=== PATIENT | female | born 1940 | race Caucasian/White ===

== ENCOUNTER → 2020-05-18 12:08 | Outpatient (CLI) | payer MEDICARE, SELFPAY ==
--- NOTE | ~2020-05-18 | MR_ITS ---
EXAMINATION: MR lumbar spine wo/w con EXAM DATE: 05/18/2020 14:42 INDICATION: Low back pain low back pain TECHNIQUE: Multi-sequential, multiplanar MR images of the lumbar spine were obtained without contrast . Sagittal T1, T2, T2 fat saturation images. Axial T2 weighted images. Comparison is made to prior examination from 12/05/2018. FINDINGS: Study is limited due to significant metallic artifact from lesion hardware L3-S1. There is moderate to severe chronic burst fracture of T12 with 5 mm retropulsion of the inferior endplate post eriorly displacing the conus medullaris, causing mild to moderate central canal stenosis at that leve l. Probable L3-L5 laminectomies. There is 2 mm retrolisthesis L1 on L2. There are moderate L1, mild L 2 compression fractures, with interval progression at the L1 level compared to 2019. Paraspinal soft tissue is unremarkable. Level by level evaluation: T12-L1: There is a moderate diffuse disc bulge, with some retropulsion of the inferior endplate. Facet arthropathy: Moderate. Neural foraminal stenosis: Moderate bilateral. Central canal stenosis: Mild to moderate. L1-L2: There is a mild to moderate diffuse disc bulge. Facet arthropathy: Moderate. Neural foraminal stenosis: Mild to moderate bilateral. Central canal stenosis: Mild to moderate. L2-L3: Poorly visualized. L3-L4: Poorly visualized L4-L5: Poorly visualized L5-S1: Poorly visualized IMPRESSION: 1. Mild interval progression in the L1 compression fracture. 2. Chronic T12 burst fracture. 3. Poorly visualized mid and lower lumbar spine due to metallic artifact Reviewed, dictated and finalized at location A. SHED CLOTH EXAMINER
--- NOTE | ~2020-05-18 | MR_ITS ---
EXAMINATION: MR thoracic spine wo con EXAM DATE: 05/18/2020 14:37 INDICATION: Pain in thoracic spine pain in thoracic spine . TECHNIQUE: Multi-sequential, multiplanar MR images of the thoracic spine were obtained without contra st. Sagittal T1, T2, T2 fat saturation, axial T2 weighted images reviewed. There is no prior study for comparison. FINDINGS: There is osseous fusion of the T2-4 vertebral bodies, and osseous fusion of the cervicothor acic vertebral bodies above this level. There is 3 mm anterolisthesis T1 on T2. There is moderate to severe mid thoracic disc disease and mild to moderate lower thoracic disc disease. T12 has nearly com plete loss of its vertebral body height, chronic burst fracture with vacuum disc phenomenon at T12-L1 . There is moderate thoracic facet arthropathy. Mild multilevel thoracic central canal stenosis. Neur al foramen suboptimally evaluated due to motion on the exam but probably up to moderate neural forami nal stenosis at T8-9, and T9-10, T12-L1. Correlating with a prior CT thoracic spine from 07/16/2018, p robably no significant interval change. Paraspinal soft tissue is unremarkable. IMPRESSION: 1. Moderate to severe mid thoracic disc disease. 2. Chronic T12 burst, L1 compression fractures. Reviewed, dictated and finalized at location A. NING GENERALIST
[2020-05-18 14:19] LABS: Estimated Glomerular Filt Rate > 60
== END ==
PROVIDERS: PCP Family Medicine; Visit Provider Nurse Practitioner Family
DX: M54.5 Low back pain (principal); M54.6 Pain in thoracic spine; M48.56XA Collapsed vertebra, not elsewhere classified, lumbar region, initial encounter for fracture; S22.081A Stable burst fracture of T11-T12 vertebra, initial encounter for closed fracture
CPT/HCPCS: 72146; 72158; A9577

== ENCOUNTER → 2020-06-02 14:44 | Outpatient (CLI) | payer MEDICARE, SELFPAY ==
--- NOTE | ~2020-06-02 | XR_ITS ---
EXAMINATION: XR lumbar spine 2-3V DATE: 06/02/2020 15:02 INDICATION: Low back pain TECHNIQUE: Anteroposterior and lateral views of the lumbar spine, and cone-down lateral view of the l umbosacral junction were obtained. COMPARISON: Lumbar spine MR dated 05/18/2020 FINDINGS: 18 degree levoscoliosis measured between T11 and L3. L3-S1 posterior spinal fusion with bilateral merle tical emeterio and pedicle screw fixation. There appears be associated anterior fusion at each of these le vels with interbody bone graft cages at L3-L4. Chronic T12 burst fracture with 80% anterior vertebral body height loss and changes of prior vertebroplasty. Severe disc height loss at T12-L1, L1-L2 and L 2-L3 with associated degenerative endplate remodeling. This results in mild right-sided vertebral bod y height loss at L2. Diffuse osteopenia. Lucency suggestive of bone graft harvest site at the right p osterior iliac spine. Mild bilateral sacroiliac osteoarthritis. Cholecystectomy clips in right upper quadrant. Visualized lung bases are clear. No pleural effusion. Atherosclerotic aorta. IMPRESSION: 1. Severe lumbar spondylosis with L3-S1 anterior and posterior spinal fusion. 2. Chronic T12 burst fracture with vertebroplasty. Reviewed, dictated and finalized at location A. E MECHANIC
== END ==
PROVIDERS: Visit Provider Nurse Practitioner Family
DX: M47.896 Other spondylosis, lumbar region (principal)
CPT/HCPCS: 72100

== ENCOUNTER 2020-11-25 12:09 | Outpatient (CLI) | payer MEDICARE, SELFPAY ==
--- NOTE | ~2020-11-25 | XR_ITS ---
EXAMINATION: XR chest 2V DATE: 11/25/2020 14:03 INDICATION: Hypertension TECHNIQUE: Frontal and lateral views of the chest are obtained COMPARISON: 09/29/2018 FINDINGS: There are minimal chronic airspace opacities of the right lower lobe, likely atelectasis or scarring. The lungs are free of acute opacities. There is no pleural effusion or pneumothorax. There is severe thoracic spondylosis. There are partially imaged changes of posterior fusion in the cervic al and lumbar spine. Surgical clips in the right upper quadrant are likely from prior cholecystectomy . Cranial migration of the humeral heads with respect to the glenoids is consistent with rotator cuff tears. IMPRESSION: 1. No acute cardiopulmonary abnormality. Reviewed, dictated and finalized at location B.
--- NOTE | 2020-11-25 12:29 | ECHO_ITS ---
Patient Info Name: Maday Carrillo Age: 80 years : 1940 Gender: Female Ht: 62 in Wt: 134 lbs BSA: 1.64 m2 HR: 143 bpm BP: 143 / 91 mmHg Technical Quality: Good Exam Date: 11/25/2020 12:57 PM Exam Location: [facility] Patient Status: Outpatient Admit Date: 11/25/2020 Staff Ordering Physician: Irwin Vega MD Wastewater Design Engineer: Emigdio Morejon, NORIS, RT Attending Provider: Irwin Vega MD Referring Physician: Gary KEITH; Exam Type: CA echo doppler color flow Study Info Indications R01.1 - Cardiac murmur, unspecified Complete two-dimensional, color flow and Doppler transthoracic echocardiogram is performed. Strain analysis performed. Summary 1. Complete two-dimensional, color flow and Doppler transthoracic echocardiogram is performed. 2. Left ventricular chamber dimension is normal. 3. Left ventricular systolic function is normal, estimated at 65-70%. 4. There is moderately increased left ventricular wall thickness. 5. The left ventricular diastolic function is abnormal. 6. E/e' 10 is mildly elevated. 7. Global longitudinal strain is abnormal at -14.7%. 8. Left atrial chamber dimension is moderately enlarged. 9. There is severe aortic valve sclerosis. 10. There is moderate to severe aortic valve stenosis with a peak velocity of 291 cm/s, mean gradient of 20 mmHg, and aortic valve area of 1.0 cm2. 11. There is mild aortic valve regurgitation. 12. The mitral valve has moderately calcified annulus. 13. There is trace tricuspid valve regurgitation. Left Ventricle E/e' 10 is mildly elevated. Global longitudinal strain is abnormal at -14.7%. Left ventricular chamber dimension is normal. Left ventricular systolic function is normal, estimated at 65-70%. There is moderately increased left ventricular wall thickness. The left ventricular diastolic function is abnormal. Right Ventricle Right ventricular systolic function is normal with normal TAPSE 2.3 cm. Right ventricular chamber dimension is normal. Left Atria Left atrial chamber dimension is moderately enlarged. Right Atria Right atrial chamber dimension is normal. Aortic Valve The aortic valve is trileaflet. There is severe aortic valve sclerosis. There is moderate to severe aortic valve stenosis with a peak velocity of 291 cm/s, mean gradient of 20 mmHg, and aortic valve area of 1.0 cm2. There is mild aortic valve regurgitation. Pulmonic Valve There is no pulmonic regurgitation. Mitral Valve The mitral valve has moderately calcified annulus. There is no mitral valve stenosis. There is no mitral valve regurgitation. Tricuspid Valve There is trace tricuspid valve regurgitation. RVSP is not calculated due to an inadequate TR jet. Pericardium/Pleural There is no pericardial effusion. Inferior Vena Cava Normal inferior vena cava with >50% collapse upon inspiration consistent with normal right atrial pressure, 5 mmHg. Aorta The aortic root size at the sinus of Valsalva is normal. Left Ventricular Outflow Tract Name Value Normal LVOT 2D LVOT Diameter 2.0 cm LVOT Doppler LVOT Peak Gradient
== END 2020-11-25 12:10 | disposition home or self-care (01) ==
LOC: ANHCARD 12:12
PROVIDERS: PCP Family Medicine; Visit Provider Family Medicine
DX: R01.1 Cardiac murmur, unspecified (principal); I35.1 Nonrheumatic aortic (valve) insufficiency; M47.814 Spondylosis without myelopathy or radiculopathy, thoracic region
CPT/HCPCS: 71046; 93306

== ENCOUNTER 2021-05-02 13:02 | Observation (INO) | payer MEDICARE, SELFPAY ==
[2021-05-02] VITALS (52 sets, daily range): BP systolic 120–172; BP diastolic 73–112; PULSE 81–131; RESP 12–29; TEMP 36.1–37.1; O2SAT 85–100
--- NOTE | ~2021-05-02 | CT_ITS ---
EXAMINATION: CTA chest PE protocol EXAM DATE: 05/02/2021 15:48 INDICATION: Syncope, atrial fibrillation. Dyspnea on exertion. TECHNIQUE: Spiral CTA of the chest (pulmonary arteries) was performed with 100 cc Omnipaque 350 intr avenous contrast injection. Images were acquired during the pulmonary arterial phase. Coronal maxi mum intensity projection 3D-reconstructions were created by the technologist on dedicated workstation . Axial, coronal and sagittal reformatted images were reviewed. The dose-length product (DLP) for t his examination was 250.86 mGy-cm. The exposure was tailored according to patient size (auto mA exp osure control), and iterative reconstruction (ASIR) was used as additional dose reduction technique. There is no prior study for comparison. FINDINGS: Pulmonary arteries are well opacified and without intraluminal filling defects. No thora cic aortic dissection. The lungs are clear. There are no pleural or pericardial effusions. Trach eobronchial tree is patent. There is no mediastinal, hilar or axillary lymphadenopathy. There is no pneumothorax. Heart normal in size. There is mild coronary arterial calcification, arterial sc lerosis. Upper abdomen is unremarkable. There is advanced thoracic spondylosis without osteoblasti c or osteolytic lesions identified. Fusion of multiple thoracic vertebral bodies and multilevel advan mario disc disease. Treated T12 compression fracture. Pain pump with tip at mid thoracic level. IMPRESSION: 1. No pulmonary emboli or acute findings. Reviewed, dictated and finalized at location A.
--- NOTE | ~2021-05-02 | CT_ITS ---
EXAMINATION: CT brain wo con EXAM DATE: 05/02/2021 14:33 INDICATION: Fall, head trauma. TECHNIQUE: Spiral CT of the head was performed without contrast. Axial, coronal and sagittal images were reviewed. The dose-length product (DLP) for this examination was 605.33 mGy-cm. The exposure w as tailored according to patient size, and iterative reconstruction (ASIR) was used as additional dos e reduction technique. There is no prior study for comparison. FINDINGS: There is no acute intraparenchymal hemorrhage. No evidence of intraparenchymal brain mass lesion. No evidence of acute infarction. Please note that initial head CT has limited sensitivity f or small or acute infarctions. There is mild to moderate periventricular and subcortical hypodensity, nonspecific but probably related to small vessel ischemic disease. There is moderate prominence of the sulci and ventricles related to cerebral atrophy. There is intracranial carotid arterioscleros is. There are no extra-axial collections. There is no mass effect or midline shift. Patient has doherty d right-sided ocular lens surgery. Left lateral scalp laceration, contusion. The visualized sinuses and mastoid air cells are well aerated. IMPRESSION: 1. No acute intracranial findings. 2. Chronic age related findings. 3. Left scalp laceration, contusion. Reviewed, dictated and finalized at location A.
--- NOTE | ~2021-05-02 | XR_ITS ---
EXAMINATION: XR chest 2V EXAM DATE: 05/02/2021 14:42 INDICATION: Syncope. Laceration to back of head. TECHNIQUE: Frontal and lateral projections of the chest obtained and reviewed. Comparison is made to prior examination from 11/25/2020. FINDINGS: There is cardiomegaly and pulmonary vascular congestion. No confluent consolidation, pneum othorax or pleural effusion suspected. Cervical fusion and lumbar fusion hardware. There is moderate thoracolumbar levoscoliosis. There are bony degenerative changes. IMPRESSION: Cardiomegaly and pulmonary vascular congestion. Reviewed, dictated and finalized at location A.
--- NOTE | 2021-05-02 13:51 | ED.HEATRA ---
HPI - Head Injury General Chief complaint: Head Injury Stated complaint: HEAD WOUND S/P FALL Time Seen by Provider: 05/02/21 13:51 Source: patient Mode of arrival: ambulatory Limitations: no limitations History of Present Illness HPI Narrative: Patient is a 80-year-old female with a history of hypertension, hyperlipidemia, type 2 diabetes, aortic stenosis, presenting for evaluation of head laceration, fall versus syncopal event. Patient states that she was putting her hollowing decorations away in a storage closet when she went to ascend steps upstairs and she believes that she may have lost her balance causing her to fall. Patient denies prodromal symptoms prior to the fall such as palpitations, shortness of breath, chest pain, lightheadedness or dizziness. Patient states that she believes she passed out about a month ago where she did have a positive loss of conscious. Patient denies loss of consciousness today patient states that she hit her head on the ground. She denies vision changes, nausea or vomiting. Denies neck or back pain. No numbness or weakness. No nausea or vomiting. Patient is not on any anticoagulation. She denies any current chest pain, hip pain, extremity pain in the room. Patient states that she initially had attributed her more frequent falls to the fact that her right knee needs to be replaced and typically gives out on her. Patient is up-to-date on her tetanus. She is vaccinated for Covid. She denies any current chest pain, shortness of breath. No recent illnesses. No recent medication changes. Related Data Home Medications Medication Instructions Recorded Confirmed bimatoprost 0.01 % eye drops 1 drop EACH EYE DAILY 05/07/19 04/25/20 biotin 10,000 mcg capsule mcg PO 05/07/19 04/25/20 dorzolamide 2 % eye drops 1 drop EACH EYE TID 05/07/19 04/25/20 hydrochlorothiazide 12.5 mg tablet 12.5 mg PO DAILY 05/07/19 04/25/20 melatonin 10 mg tablet PO DAILY PRN tablet 05/07/19 04/25/20 metoprolol succinate 100 mg 100 mg PO DAILY 05/07/19 04/25/20 tablet,extended release 24 hr multivitamin 1 cap PO DAILY 05/07/19 04/25/20 silver sulfadiazine 1 % topical 1 applic TOPICAL DAILY 05/07/19 04/25/20 cream methotrexate sodium 2.5 mg tablet 7.5 mg PO WEEKLY tablet 04/25/20 04/25/20 Allergies Allergy/AdvReac Type Severity Reaction Status Date / Time nickel Allergy Intermediate RASH Verified 05/02/21 14:09 oxycodone Allergy Intermediate HALLUCINATE Verified 05/02/21 14:09 S adhesive Allergy Unknown Rash Verified 05/02/21 14:09 Review of Systems Review of Systems: CONSTITUTIONAL: Denies fever, chills, or sweats. EYES: Denies visual changes, redness, or discharge. ENT: Denies rhinorrhea, congestion, sore throat, or otalgia. CARDIOVASCULAR: Denies chest pain, palpitations, or edema. RESPIRATORY: Denies cough or dyspnea. GASTROINTESTINAL: Denies abdominal pain, nausea, vomiting, or diarrhea. GENITOURINARY: Denies dysuria or hematuria. SKIN: Denies rash or itching. MUSCULOSKELETAL: Denies back pain, joint pain, or myalgia. NEUROLOGIC: Reports headache, reports head laceration, denies numbness or weakness PMF Past Medical History Medical History BMI 25.0-25.9,adult Breast cancer screening by mammogram Chronic depression Colon cancer screening Diabetes mellitus Diabetic peripheral neuropathy associated with type 2 diabetes mellitus Diabetic retinopathy associated with controlled type 2 diabetes mellitus Fatigue Glaucoma Heart murmur on physical examination Hx of urinary frequency Nail fungal infection Peripheral arterial disease (09/05/20) patient had abnormal KEYA screening on 09/05/2020 with moderate decrease in the right foot and significant in the left Prurigo nodularis Rotator cuff arthropathy of right shoulder Spinal stenosis Urticaria Surgical History Surgical History H/O eye surgery
--- NOTE | 2021-05-02 14:07 | ECG_ITS ---
Measurements Intervals [place] Rate: 117 P: [place]: 0 QRS: -6 QRSD: 90 T: 65 QT: 309 QTc: 431 Interpretive Statements ATRIAL FIBRILLATION WITH RAPID VENTRICULAR RESPONSE ANTEROSEPTAL INFARCT, AGE INDETERMINATE BORDERLINE ST-T WAVE ABNORMALITY- HIGH LATERAL LEADS BASELINE ARTIFACT- II, III, AVF, V1-V6 ABNORMAL ECG Electronically Signed On 05-02-2021 14:24:45 CDT by Kevin Beyer D.O.
--- NOTE | 2021-05-02 14:27 | PC.NURSE ---
Pt off floor in CT scan
[2021-05-02 15:07] LABS: Basophils Absolute Auto 0.1 K/mm3 (0.0-0.1); Eosinophils Absolute Auto 0.2 K/mm3 (0-0.3); Eosinophils Percent Auto 2.6 % (0-4.4); Hematocrit 38.3 % (37.0-47.0); Hemoglobin 11.9 g/dL (12.0-15.0); Immature Granulocyte Absolute 0.02 K/mm3 (0.00-0.031); Immature Granulocyte Percent A 0.2 % (0-0.5); Lymphocytes Percent Auto 25.5 % (18.3-44.2); Mean Corpuscular HGB Conc 31.1 g/dl (32-36); Mean Corpuscular Hemoglobin 25.5 pg (26-34); Mean Platelet Volume 10.1 fl (7.4-10.4); Monocytes Absolute Auto 0.9 K/mm3 (0.1-0.6); Monocytes Percent Auto 10.8 % (2.6-8.5); Neutrophils Absolute Auto 4.9 K/mm3 (1.3-6.7); Neutrophils Percent Auto 59.9 % (45.5-73.1); Platelet Count Result 315 k/mm3 (150-375); Red Blood Count 4.67 M/mm3 (4.2-5.4); Red Cell Distribution Width 14.6 % (11.5-14.5); White Blood Count 8.2 K/mm3 (4.5-10.0)
[2021-05-02 15:10] LABS: Glucose Point of Care 90 mg/dl (65-105)
[2021-05-02] MEDS: SODIUM CHLORIDE 0.9% IV 1,000 ML 999 ML IV CONT (15:14)
[2021-05-02 15:18] LABS: INR 0.9
[2021-05-02 15:19] LABS: Partial Thromboplastin Time 29.4 SECONDS (22.3-36.8)
[2021-05-02 15:21] LABS: D Dimer 1.99 ug/mL (<0.48)
[2021-05-02 15:25] LABS: Anion Gap 7 mmol/L (8-16); Blood Urea Nitrogen 18 mg/dL (7-17); Calcium 10.8 mg/dL (8.4-10.2); Carbon Dioxide 28 mmol/L (22-30); Chloride 102 mmol/L (98-107); Estimated Glomerular Filt Rate > 60; Glucose 103 mg/dL (65-110); Sodium 137 mmol/L (137-145)
--- NOTE | 2021-05-02 15:36 | PC.NURSE ---
pt off floor to radiology
[2021-05-02 15:37] LABS: Troponin I < 0.012 ng/mL (0.000-0.034)
[2021-05-02 15:38] LABS: Add Urine Microscopic? NO; Appearance Urine Clear (Clear); Bilirubin Urine Negative (Negative); Blood Urine Negative (Negative); Color Urine Straw (Yellow); Glucose Urine UA Negative (Negative); Ketones Urine Negative (Negative); Leukocyte Esterase Ur Negative LEU/UL (Negative); Nitrate Urine Negative (Negative); Protein Urine Negative (Negative); Specific Grav Ur 1.008 (1.001-1.035); Urobilinogen Urine Negative mg/dL (<2.0)
--- NOTE | 2021-05-02 16:55 | PC.NURSE ---
Clarified with Dr Ribera. Potassium level is 4, no need for IV or PO potassium replacement at this time. Order cancelled. Pt urinating frequently with first liter of fluids. OK per Dr Ribera to cancel 500 cc bolus.
[2021-05-02] MEDS: dilTIAZem HCl INJ 25 MG/5 ML VIAL 10 MG IV PUSH (17:25)
--- NOTE | 2021-05-02 20:21 | PM.IMHP ---
H&P: HPI History of Present Illness Date/Time: 05/02/21 20:21 Chief Complaint: Fall Narrative: This is a 80-year-old female with past medical history significant for aortic stenosis, hypertension, hyperlipidemia, type 2 diabetes mellitus multiple back surgeries, chronic back pain, pain pump insitu, patient had this pain pump implanted recently states that she was having difficulty ambulating due to her pain and feels that this has helped her however the patient has been followed and on 2 occasions she has not been sugar if she has had lost of consciousness 1 of these instances she walk up to the moaning of her dog while she was laying on the floor. Today the patient was reaching out for something when she fell denies loss of consciousness she had laceration wound today back of her head for which she presented to the emergency room. Preliminary workup was significant for ECG with atrial fibrillation with rapid ventricular response, rest of workup was essentially nonrevealing. Patient denied any shortness of breath, cough, sputum production, fevers, chills, rigors, nausea, vomiting, abdominal pain, diarrhea, chest pain, leg swelling, lightheadedness, diaphoresis. Decision has been made to admit the patient for further management, evaluation and treatment Review of Systems Review of Systems: Fall, scalp laceration. Constitutional: Constitutional: Denies chills, Denies fatigue, Denies fever(s), Reports frequent falls, Denies malaise and Denies weakness Eyes: Eyes: Denies change in vision ENT: Denies dysphagia, Denies vertigo, Denies dizziness, Denies nasal congestion, Denies nasal discharge, Denies nasal obstruction and Denies odynophagia Cardiovascular: Cardiovascular: Reports syncope, Denies irregular heart rhythm, Denies claudication, Denies leg edema, Denies lightheadedness, Denies radiating jaw, neck or arm pain, Denies palpitations, Denies dyspnea, Denies dyspnea on exertion and Denies orthopnea Respiratory: Respiratory: Denies cough, Denies dyspnea, Denies dyspnea on exertion and Denies wheezing Gastrointestinal: Gastrointestinal: Denies abdominal pain, Denies diarrhea, Denies nausea and Denies vomiting Genitourinary: Genitourinary: Reports no additional female genitourinary complaints and Reports as per HPI Musculoskeletal: Musculoskeletal: Reports back pain Integumentary/Breasts: Skin/Breast: Denies rash Comments: Laceration to the scalp Psychiatric: Psychiatric: Reports no additional psychiatric complaints and Reports as per HPI Endocrine: Endocrine: Reports no additional endocrine complaints and Reports as per HPI Hematologic/Lymphatic: Hematologic/Lymphatic: Reports no additional hematologic/lymphatic complaints and Reports as per HPI Allergic/Immunologic: Allergic/Immunologic: Reports no additional allergic/immunologic complaints and Reports as per HPI PMFSH Past Medical History Medical History BMI 25.0-25.9,adult Breast cancer screening by mammogram Chronic depression Colon cancer screening Diabetes mellitus Diabetic peripheral neuropathy associated with type 2 diabetes mellitus Diabetic retinopathy associated with controlled type 2 diabetes mellitus Fatigue Glaucoma Heart murmur on physical examination Hx of urinary frequency Nail fungal infection Peripheral arterial disease (09/05/20) patient had abnormal KEYA screening on 09/05/2020 with moderate decrease in the right foot and significant in the left Prurigo nodularis Rotator cuff arthropathy of right shoulder Spinal stenosis Urticaria Surgical History Surgical History H/O eye surgery History of back surgery History of bilateral knee replacement History of partial hysterectomy Hx of fusion of cervical spine Family History Family History (Updated 05/02/21 @ 20:51 by Yulias Lee RN) Mother Patient's mother is , Onset Age: 90
--- NOTE | 2021-05-02 20:49 | ADMGEN ---
This patient, Maday Carrillo, was admitted to IMU Room 206-02 at 2034. Patient/family oriented to hospital policies and general routines including ID bracelet, bed and alarms, visiting hours, pain management, procedures, bathroom and other care routines, personal items, smoking policy, room service/diet, and visiting hours. Information on how to activate the Rapid Response Team has been discussed. Patient/Family are encouraged to report perceived risks to care and to ask questions if they do not understand what they are told or what they should do.
[2021-05-03] VITALS (17 sets, daily range): BP systolic 118–152; BP diastolic 65–91; PULSE 78–141; RESP 16–18; TEMP 36.1–37.1; O2SAT 96–99
--- NOTE | 2021-05-03 | ECHO_ITS ---
Patient Info Name: Maday Carrillo Age: 80 years : 1940 Gender: Female Ht: 63 in Wt: 139 lbs BSA: 1.68 m2 HR: 90 bpm BP: 139 / 75 mmHg Heart Rhythm: Atrial Fibrillation Exam Date: 05/03/2021 11:42 AM Exam Location: [facility] Patient Status: Inpatient Admit Date: 05/02/2021 Staff Ordering Physician: Emilia Madera MD Physical Therapist: Emigdio Morejon, [place], RT Attending Provider: Shane Leblanc MD Referring Physician: Santy MCFARLAND; Exam Type: CA echo doppler color flow Study Info Indications I35.0 - Nonrheumatic aortic (valve) stenosis I48.1 - Persistent atrial fibrillation Complete two-dimensional, color flow and Doppler transthoracic echocardiogram is performed. Strain analysis performed. Summary 1. Complete two-dimensional, color flow and Doppler transthoracic echocardiogram is performed. 2. Left ventricular chamber dimension is normal. 3. Left ventricular systolic function is hyperdynamic, estimated at >70%. 4. There is mildly increased left ventricular wall thickness. 5. The left ventricular diastolic function is indeterminate. 6. Left atrial chamber dimension is moderately enlarged. 7. There is moderate to severe aortic valve stenosis with a peak velocity of 319 cm/s, mean gradient of 22 mmHg, and aortic valve area of 1.0 cm2. 8. There is mild aortic valve regurgitation. Left Ventricle Left ventricular chamber dimension is normal. Left ventricular systolic function is hyperdynamic, estimated at >70%. There is mildly increased left ventricular wall thickness. The left ventricular diastolic function is indeterminate. Global longitudinal strain is mildly elevated at -14 %. Right Ventricle Right ventricular chamber dimension is normal. Right ventricular systolic function is normal. Left Atria Left atrial chamber dimension is moderately enlarged. Right Atria Right atrial chamber dimension is mildly enlarged. Aortic Valve The aortic valve is not well visualized. There is moderate to severe aortic valve stenosis with a peak velocity of 319 cm/s, mean gradient of 22 mmHg, and aortic valve area of 1.0 cm2. There is mild aortic valve regurgitation. There is severe aortic valve calcification. Pulmonic Valve The pulmonic valve is not well visualized. There is trace pulmonic regurgitation. Mitral Valve The mitral valve has thickened leaflets. There is trace mitral valve regurgitation. The mitral valve annulus is moderately calcified. Tricuspid Valve The tricuspid valve leaflets are normal. There is trace tricuspid valve regurgitation. No pulmonary hypertension, estimated pulmonary arterial systolic pressure is 31 mmHg. Pericardium/Pleural The pericardium appears normal. There is no pericardial effusion. Inferior Vena Cava Normal inferior vena cava with >50% collapse upon inspiration consistent with normal right atrial pressure, 5 mmHg. Aorta The aortic root size at the sinus of Valsalva is normal. There is mild aortic atherosclerosis. Left Ventricular Outflow Tract Name Value Normal LVOT 2D LVOT Diameter 2.0 cm LVOT Doppler LVOT Peak Gradient
[2021-05-03] MEDS: amLODIPine BESYLATE 5 MG TABLET 10 MG PO (09:33)
[2021-05-03] MEDS: ATORVASTATIN 40 MG TABLET PO (09:33)
[2021-05-03] MEDS: DULoxetine HCL 60 MG CAPSULE.DR PO ×2 (09:33→16:00)
[2021-05-03] MEDS: LATANOPROST 0.005% OP SOLN 2.5 ML BTL 1 DROP EACH EYE (09:34)
[2021-05-03] MEDS: PANTOPRAZOLE 40 MG TABLET PO (09:34)
[2021-05-03] MEDS: FOLIC ACID 1 MG TABLET PO (09:34)
[2021-05-03] MEDS: DORZOLAMIDE HCL 2% OPHTH DROPS 1 DROP EACH EYE ×2 (09:34→16:00)
[2021-05-03] MEDS: MULTIVITAMINS THERAPEUTIC TAB (*BKC) 1 TABLET PO (09:34)
--- NOTE | 2021-05-03 11:12 | PM.CNCAR ---
Assessment and Plan Assessment and plan (1) Atrial fibrillation with rapid ventricular response: Code(s): I48.91 - Unspecified atrial fibrillation Status: Acute Assessment and Plan: New diagnosis, chronicity unknown initially atrial fibrillation with rapid ventricular response currently better controlled on diltiazem 5 milligrams/hour. Wean diltiazem off transition to oral regimen. Will initiate metoprolol tartrate 50 mg p.o. q.8 hours and discontinue diltiazem. Patient is not a reasonable candidate for systemic anticoagulation due to multiple and frequent falls including recurrent head injury this admission and unexplained syncope 1 month ago. Discussed embolic stroke association with AFib and recommendations generally for systemic anticoagulation for stroke risk reduction. Discussed potential catastrophic complications with head bleed secondary to fall and or injury on systemic anticoagulation. At this time, patient's bleeding complication exceeds embolic stroke risk therefore aspirin 81 mg daily will be initiated. Will continue aspirin 81 mg for the next week or so increased to 325 mg daily as tolerated thereafter. Strongly advised physical therapy, conditioning and gait training and if her fall risk is markedly reduced and she has been deemed a reasonable candidate for systemic anticoagulation initiation at that time may be appropriate. As such, she is not a candidate for cardioversion as she cannot be anticoagulated. Therefore rate control strategy will be pursued. 2D echocardiogram personally reviewed revealed moderate aortic stenosis preserved EF hyperdynamic greater than 70%, moderate left atrial enlargement, trace MR. Caution with concomitant NSAID therapy and aspirin due to increased gastrointestinal complications such as GI bleed. Monitor for bright red blood per rectum and/or black tarry stools. Patient verbalized understanding of the recommendations and agreed she was not a reasonable cannot for anticoagulation. All questions answered to her satisfaction. Further recommendation to follow based upon response to therapy. (2) Frequent falls: Code(s): R29.6 - Repeated falls Status: Acute Assessment and Plan: As above, precise etiology unclear although due to declining activity to avoid falls conditioning clearly contributor she needs physical therapy/occupational therapy and or gait training to reduce fall risk. We discussed this at length. Defer to primary service in this regard. If this situation stabilizes she may become a candidate for systemic anticoagulation in the near future. (3) Head injury, acute: Code(s): S09.90XA - Unspecified injury of head, initial encounter Status: Acute Assessment and Plan: As above. Secondary to fall without loss of consciousness this hospitalization with superficial laceration requiring stitches. (4) Aortic stenosis: Onset Date: ~11/25/20 Code(s): I35.0 - Nonrheumatic aortic (valve) stenosis Status: Acute Assessment and Plan: Moderate severity aortic valve area 1.0 centimeters squared the velocity 3.2 m/sec mean gradient 22 mm Hg mild aortic regurgitation. (5) Hyperlipidemia associated with type 2 diabetes mellitus: Code(s): E11.69 - Type 2 diabetes mellitus with other specified complication; E78.5 - Hyperlipidemia, unspecified Status: Acute Assessment and Plan: Continue statin therapy. (6) Hypertension associated with diabetes: Code(s): E11.59 - Type 2 diabetes mellitus with other circulatory complications; I15.2 - Hypertension secondary to endocrine disorders Status: Acute Assessment and Plan: Avoid significant hypotension. BP reasonably controlled at this time. Continue home medical therapy. History of Present Illness History of Present Illness Consult date/time: Date of service: 05/03/21 11:12 Cardiology consultation at the request of Dr. Khanna for our opinion regarding
[2021-05-03] MEDS: ASPIRIN 81 MG ENTERIC TABLET PO (11:33)
--- NOTE | 2021-05-03 14:21 | PCPTNOTE ---
PT eval attempted this day but unable to per RN due to high HR following OT eval. Will try again at a later date.
[2021-05-03] MEDS: METOPROLOL TARTRATE 50 MG TAB PO (14:45)
[2021-05-03] MEDS: METOPROLOL TARTRATE 25 MG TABLET PO (17:24)
--- NOTE | 2021-05-03 17:51 | PM.IMPN ---
Progress Note: A&P Assessment and Plan (1) Syncope: Qualifiers: Syncope type: unspecified Qualified Code(s): R55 - Syncope and collapse Code(s): R55 - Syncope and collapse Status: Acute (2) Laceration of occipital scalp: Qualifiers: Encounter type: initial encounter Qualified Code(s): S01.01XA - Laceration without foreign body of scalp, initial encounter Code(s): S01.01XA - Laceration without foreign body of scalp, initial encounter Status: Acute (3) Aortic stenosis: Onset Date: ~11/25/20 Qualifiers: Cardiac valve disease etiology: nonrheumatic Qualified Code(s): I35.0 - Nonrheumatic aortic (valve) stenosis Code(s): I35.0 - Nonrheumatic aortic (valve) stenosis Status: Acute (4) Atrial fibrillation with rapid ventricular response: Code(s): I48.91 - Unspecified atrial fibrillation Status: Acute (5) Hypertension associated with diabetes: Code(s): E11.59 - Type 2 diabetes mellitus with other circulatory complications; I15.2 - Hypertension secondary to endocrine disorders Status: Acute (6) Hyperlipidemia associated with type 2 diabetes mellitus: Code(s): E11.69 - Type 2 diabetes mellitus with other specified complication; E78.5 - Hyperlipidemia, unspecified Status: Acute (7) Heart murmur on physical examination: Code(s): R01.1 - Cardiac murmur, unspecified Status: Acute (8) Gastro-esophageal reflux disease without esophagitis: Code(s): K21.9 - Gastro-esophageal reflux disease without esophagitis Status: Acute (9) Diastolic heart failure: Qualifiers: Heart failure chronicity: chronic Qualified Code(s): I50.32 - Chronic diastolic (congestive) heart failure Code(s): I50.30 - Unspecified diastolic (congestive) heart failure Status: Acute (10) Recurrent falls: Code(s): R29.6 - Repeated falls Status: Acute Additional Plan 1. Syncope possibly secondary to symptomatic aortic stenosis/new onset AFib with RVR: -patient to syncopal episode 1 time prior (earlier this month) -improvement symptoms noted at that time, no nausea, vomiting, chest pain, shortness of breath -an echo from 11/18 revealed concerns for aortic stenosis. -An echo performed this morning reveals the following findings Aortic valve area of 1 cm2 Mean gradient of 22 mm Hg Peak velocity 3.19 m/sec -given above numbers patient might not qualify for aortic valve surgery however because of her symptomatic nature this might put her at risk and may benefit from aortic valve repair. -will discuss with Cardiology the need for stress test, in case patient might qualify for TAVR/aortic valve repair with symptoms with stress testing 2. New onset AFib with RVR: -patient noted to AFib with RVR arrival, was started on diltiazem drip -no transition to p.o. metoprolol per Cardiology recommendations -does not qualify for anticoagulation due risk of falls and repeated head injuries -cardiology starting the patient on aspirin 81 mg and the plan to increase the aspirin to 325 mg if patient is able to tolerate -it is very possible that the patient's repeated syncopal episodes are possibly related to AFib with RVR episodes. Hence it be worthwhile to send the patient on a garage laborer when she is ready to be discharged 3. Physical deconditioning and recurrent falls: -will get patient evaluated by PT OT Time Spent With Patient Time with patient: 25 - 35 minutes Subjective Date/time seen: 05/03/21 17:51 Interval history: 80-year-old female with past medical history significant for hypertension, hyperlipidemia, type 2 diabetes mellitus history of multiple back surgeries status post pain pump placement presented after experiencing fall and subsequent laceration to the head requiring sutures. In the ED patient was noted to be in AFib with RVR and was started on diltiazem drip. Cardiology is following patient
[2021-05-03 18:40] LABS: Basophils Absolute Auto 0.1 K/mm3 (0.0-0.1); Basophils Percent Auto 0.9 % (0.2-1.2); Eosinophils Absolute Auto 0.1 K/mm3 (0-0.3); Eosinophils Percent Auto 1.8 % (0-4.4); Hematocrit 37.5 % (37.0-47.0); Hemoglobin 11.7 g/dL (12.0-15.0); Immature Granulocyte Absolute 0.02 K/mm3 (0.00-0.031); Immature Granulocyte Percent A 0.3 % (0-0.5); Lymphocytes Absolute Auto 1.69 K/mm3 (0.9-3.2); Mean Corpuscular HGB Conc 31.2 g/dl (32-36); Mean Corpuscular Hemoglobin 24.8 pg (26-34); Mean Corpuscular Volume 79.6 fl (80-100); Mean Platelet Volume 9.1 fl (7.4-10.4); Monocytes Absolute Auto 0.9 K/mm3 (0.1-0.6); Monocytes Percent Auto 12.7 % (2.6-8.5); Neutrophils Percent Auto 59.3 % (45.5-73.1); Platelet Count Result 371 k/mm3 (150-375); Red Blood Count 4.71 M/mm3 (4.2-5.4); Red Cell Distribution Width 14.6 % (11.5-14.5); White Blood Count 6.8 K/mm3 (4.5-10.0)
[2021-05-03 18:53] LABS: Alanine Aminotransferase 15 U/L (4-35); Albumin Level 3.9 g/dL (3.5-5.1); Alkaline Phosphatase 77 U/L (38-126); Anion Gap 7 mmol/L (8-16); Aspartate Amino Transferase 25 U/L (14-36); Bilirubin,Total 0.4 mg/dL (0.2-1.3); Blood Urea Nitrogen 14 mg/dL (7-17); Calcium 10.5 mg/dL (8.4-10.2); Carbon Dioxide 29 mmol/L (22-30); Chloride 100 mmol/L (98-107); Estimated Glomerular Filt Rate > 60; Glucose 178 mg/dL (65-110); Potassium 3.7 mmol/L (3.4-5.0); Sodium 136 mmol/L (137-145)
[2021-05-03] MEDS: ACETAMINOPHEN 325 MG TABLET 650 MG PO (21:26)
[2021-05-03] MEDS: METOPROLOL TARTRATE 25 MG TABLET 75 MG PO (21:27)
[2021-05-03] MEDS: rOPINIRole HCL 1 MG TABLET PO (21:27)
[2021-05-04] VITALS (11 sets, daily range): BP systolic 124–133; BP diastolic 76–84; PULSE 71–94; RESP 16; TEMP 36.1–36.4; O2SAT 95–99
[2021-05-04 04:54] LABS: Basophils Absolute Auto 0.1 K/mm3 (0.0-0.1); Basophils Percent Auto 1.1 % (0.2-1.2); Eosinophils Absolute Auto 0.2 K/mm3 (0-0.3); Eosinophils Percent Auto 3.2 % (0-4.4); Hematocrit 37.2 % (37.0-47.0); Hemoglobin 11.8 g/dL (12.0-15.0); Immature Granulocyte Absolute 0.02 K/mm3 (0.00-0.031); Immature Granulocyte Percent A 0.3 % (0-0.5); Lymphocytes Percent Auto 30.7 % (18.3-44.2); Mean Corpuscular HGB Conc 31.7 g/dl (32-36); Mean Corpuscular Hemoglobin 24.9 pg (26-34); Mean Corpuscular Volume 78.6 fl (80-100); Mean Platelet Volume 9.7 fl (7.4-10.4); Monocytes Absolute Auto 1.1 K/mm3 (0.1-0.6); Monocytes Percent Auto 17.8 % (2.6-8.5); Neutrophils Absolute Auto 2.9 K/mm3 (1.3-6.7); Neutrophils Percent Auto 46.9 % (45.5-73.1); Platelet Count Result 304 k/mm3 (150-375); Red Blood Count 4.73 M/mm3 (4.2-5.4); Red Cell Distribution Width 14.4 % (11.5-14.5); White Blood Count 6.2 K/mm3 (4.5-10.0)
[2021-05-04 05:23] LABS: Alanine Aminotransferase 12 U/L (4-35); Albumin Level 3.7 g/dL (3.5-5.1); Alkaline Phosphatase 70 U/L (38-126); Anion Gap 4 mmol/L (8-16); Aspartate Amino Transferase 22 U/L (14-36); Bilirubin,Total 0.4 mg/dL (0.2-1.3); Blood Urea Nitrogen 15 mg/dL (7-17); Calcium 10.4 mg/dL (8.4-10.2); Carbon Dioxide 32 mmol/L (22-30); Chloride 101 mmol/L (98-107); Estimated Glomerular Filt Rate > 60; Glucose 123 mg/dL (65-110); Potassium 3.4 mmol/L (3.4-5.0); Sodium 137 mmol/L (137-145)
[2021-05-04 05:31] LABS: Troponin I < 0.012 ng/mL (0.000-0.034)
[2021-05-04] MEDS: METOPROLOL TARTRATE 25 MG TABLET 75 MG PO (05:46)
[2021-05-04] MEDS: amLODIPine BESYLATE 5 MG TABLET 10 MG PO (09:04)
[2021-05-04] MEDS: DULoxetine HCL 60 MG CAPSULE.DR PO (09:04)
[2021-05-04] MEDS: PANTOPRAZOLE 40 MG TABLET PO (09:05)
[2021-05-04] MEDS: ATORVASTATIN 40 MG TABLET PO (09:05)
[2021-05-04] MEDS: MULTIVITAMINS THERAPEUTIC TAB (*BKC) 1 TABLET PO (09:06)
[2021-05-04] MEDS: FOLIC ACID 1 MG TABLET PO (09:06)
[2021-05-04] MEDS: ASPIRIN 81 MG ENTERIC TABLET PO (09:06)
[2021-05-04] MEDS: LATANOPROST 0.005% OP SOLN 2.5 ML BTL 1 DROP EACH EYE (09:08)
[2021-05-04] MEDS: DORZOLAMIDE HCL 2% OPHTH DROPS 1 DROP EACH EYE (09:08)
--- NOTE | 2021-05-04 10:04 | PM.PNCARD ---
Progress Note: A&P Assessment and Plan (1) Atrial fibrillation with rapid ventricular response: Code(s): I48.91 - Unspecified atrial fibrillation Status: Acute Assessment and Plan: New diagnosis, chronicity unknown initially atrial fibrillation with rapid ventricular response. Heart rate well controlled on metoprolol 75 mg p.o. q.8 hours. Will simplify regimen to metoprolol tartrate 100 mg b.i.d.. She is not an anticoagulation candidate due to multiple falls including head injury at this admission and previously. May consider outpatient gambling monitor given history of syncope several months ago and for AFib heart rate control as an outpatient but will defer to Dr. Garner post discharge. Follow-up with Dr. Garner in 2-4 weeks. ASA 81mg daily for now inc to 325mg daily in 1 week or so. monitor for bleeding. Ambulate with assistance. PT/OT. Stable for discharge home from CV perspective per Hospitalist Service. (2) Frequent falls: Code(s): R29.6 - Repeated falls Status: Acute Assessment and Plan: As above, precise etiology unclear although due to declining activity to avoid falls conditioning clearly contributor she needs physical therapy/occupational therapy and or gait training to reduce fall risk. We discussed this at length. Defer to primary service in this regard. If this situation stabilizes she may become a candidate for systemic anticoagulation in the near future. (3) Head injury, acute: Code(s): S09.90XA - Unspecified injury of head, initial encounter Status: Acute Assessment and Plan: As above. Secondary to fall without loss of consciousness this hospitalization with superficial laceration requiring stitches. (4) Aortic stenosis: Onset Date: ~11/25/20 Qualifiers: Cardiac valve disease etiology: nonrheumatic Qualified Code(s): I35.0 - Nonrheumatic aortic (valve) stenosis Code(s): I35.0 - Nonrheumatic aortic (valve) stenosis Status: Acute Assessment and Plan: Moderate severity aortic valve area 1.0 centimeters squared the velocity 3.2 m/sec mean gradient 22 mm Hg mild aortic regurgitation. TAVR consideration as outpatient with Dr. Graner. (5) Hyperlipidemia associated with type 2 diabetes mellitus: Code(s): E11.69 - Type 2 diabetes mellitus with other specified complication; E78.5 - Hyperlipidemia, unspecified Status: Acute Assessment and Plan: Continue statin therapy. (6) Hypertension associated with diabetes: Code(s): E11.59 - Type 2 diabetes mellitus with other circulatory complications; I15.2 - Hypertension secondary to endocrine disorders Status: Acute Assessment and Plan: Avoid significant hypotension. BP reasonably controlled at this time. Continue home medical therapy. Subjective Date/time seen: Date of service: 05/04/21 10:04 Follow-up for new diagnosis atrial fibrillation, admission for fall with head injury Feels fine. Denies palpitations, shortness of breath or chest pain. No new issues overnight. No dizziness. Patient has baseline imbalance which is unchanged. Tolerating metoprolol off intravenous diltiazem. Heart rate controlled generally in the 80s in atrial fibrillation on telemetry. Review of Systems Review of Systems: All systems reviewed & are unremarkable except as noted in HPI and below Constitutional: Constitutional: Reports as per HPI, Reports no additional constitutional complaints, Denies fatigue, Denies headache(s) and Denies weakness Eyes: Eyes: Reports as per HPI and Reports no additional eye complaints ENT: Reports system reviewed and no additional complaints, except as documented, Reports as per HPI and Denies headache(s) Cardiovascular: Cardiovascular: Reports as per HPI, Reports no additional cardiovascular complaints, Denies chest pain, Denies diaphoresis, Reports pedal edema, Reports leg edema, Denies lightheadedness, Denies palpitations and Reports dys
--- NOTE | 2021-05-04 11:01 | PCPTNOTE ---
On 05/04/21, the student, Kervin Eldridge, provided care and completed [facility] documentation on this patient. I have reviewed the student's documentation and agree with the findings.
--- NOTE | 2021-05-04 12:36 | PM.DS ---
DS: Admitting Diagnosis Discharge Date 05/04/2021 Admitting Diagnosis Atrial fibrillation with rapid ventricular response DS: Discharge Diagnosis Discharge Diagnosis (1) Atrial fibrillation with rapid ventricular response: Code(s): I48.91 - Unspecified atrial fibrillation Status: Acute (2) Aortic stenosis: Onset Date: ~11/25/20 Qualifiers: Cardiac valve disease etiology: nonrheumatic Qualified Code(s): I35.0 - Nonrheumatic aortic (valve) stenosis Code(s): I35.0 - Nonrheumatic aortic (valve) stenosis Status: Acute (3) Laceration of occipital scalp: Qualifiers: Encounter type: initial encounter Qualified Code(s): S01.01XA - Laceration without foreign body of scalp, initial encounter Code(s): S01.01XA - Laceration without foreign body of scalp, initial encounter Status: Acute (4) Syncope: Qualifiers: Syncope type: unspecified Qualified Code(s): R55 - Syncope and collapse Code(s): R55 - Syncope and collapse Status: Acute DS: Summary Hospital Course Reason for hospitalization: AFib with RVR Hospital Course: 80-year-old female with past medical history significant for hypertension, hyperlipidemia, type 2 diabetes mellitus history of multiple back surgeries status post pain pump placement presented after experiencing fall and subsequent laceration to the head requiring sutures. In the ED patient was noted to be in AFib with RVR and was started on diltiazem drip. Cardiology followed patient during the admission started patient on p.o. metoprolol 100 mg b.i.d. Unfortunately patient is not a candidate for anticoagulation due to history of recurrent falls. Patient reports that she has had multiple other syncopal episodes and to when the last 1 month where she lost consciousness and has had no prodromal symptoms. And an echo that was performed in 10/2020 there are concerns for aortic stenosis. Repeat echo performed this time was as follows: 1. Complete two-dimensional, color flow and Doppler transthoracic echocardiogram is performed. 2. Left ventricular chamber dimension is normal. 3. Left ventricular systolic function is hyperdynamic, estimated at >70%. 4. There is mildly increased left ventricular wall thickness. 5. The left ventricular diastolic function is indeterminate. 6. Left atrial chamber dimension is moderately enlarged. 7. There is moderate to severe aortic valve stenosis with a peak velocity of 319 cm/s, mean gradient of 22 mmHg, and aortic valve area of 1.0 cm2. 8. There is mild aortic valve regurgitation. Discussed with cardiology at length regarding the need for possible TAVR and further work up regarding the patient's . Discussed whether her syncopal episodes were related to aortic stenosis being symptomatic. At this time Cardiology does not think that her syncope could be related to aortic stenosis and that she can have outpatient work up for this purpose. I discussed the possibility of requiring an event monitor at the time of discharge, if her syncopal episodes could be related to Afib, however Dr. Ibarra discussed this with Dr. Garner, patient's Alarm Mechanic, and they concluded that this can be done as OP as well. I will move forward with the specialists recommendations. Status at Discharge Overall status at discharge: patient is progressing back to baseline Time Spent with Patient Time attestation: Total time spent providing and/or coordinating discharge services: Time spent: Greater than 30 minutes Exam Narrative: General: Very pleasant elderly female in no apparent distress alert and orient x3 breathing comfortably speaking full sentences sitting upright in bed. Well developed, alert and oriented x3. No apparent distress, comfortable, pleasant, and cooperative. Head: Laceration left posterior scalp with stitches intact dried blood in her hair. Tender to palpation. normocephalic Eyes: EOM i
== END 2021-05-04 13:30 | disposition home health service (06) ==
LOC: ANHED 16:16 → ANHIMU 18:46
PROVIDERS: Admitting Provider Internal Medicine; Emergency Provider Emergency Medicine; PCP Family Medicine; Visit Provider Internal Medicine
DX: I48.91 Unspecified atrial fibrillation (principal); I35.0 Nonrheumatic aortic (valve) stenosis; S01.01XA Laceration without foreign body of scalp, initial encounter; R55 Syncope and collapse; E11.42 Type 2 diabetes mellitus with diabetic polyneuropathy; E11.319 Type 2 diabetes mellitus with unspecified diabetic retinopathy without macular edema; E78.5 Hyperlipidemia, unspecified; E87.1 Hypo-osmolality and hyponatremia; E87.6 Hypokalemia; K21.9 Gastro-esophageal reflux disease without esophagitis; G25.81 Restless legs syndrome; R29.6 Repeated falls; M54.9 Dorsalgia, unspecified; G89.29 Other chronic pain; Z87.891 Personal history of nicotine dependence; W19.XXXA Unspecified fall, initial encounter
CPT/HCPCS: 12001; 36415; 70450; 71046; 71275; 80048; 80053; 81003; 82948; 84443; 84484; 85025; 85380; 85610; 85730; 93005; 93306; 96361; 96374; 96376; 97161; 97165; 97530; 97535; 99285; A9270; G0378; J7030; Q9967

== ENCOUNTER 2024-02-14 15:22 | Emergency (ER) | payer MEDICARE, MEDICAID, SELFPAY ==
[2024-02-14 15:24] VITALS: BP 118/77; PULSE 85; RESP 18; TEMP 36.3; O2SAT 92
--- NOTE | 2024-02-14 18:20 | PC.NURSE ---
Pt family came up to desk stating pt felt better and they are going to go home and will return if symptoms worsen.
== END 2024-02-14 19:04 | disposition left against medical advice (07) ==
LOC: ANHED 18:24
PROVIDERS: PCP Family Medicine
DX: R42 Dizziness and giddiness (principal)
CPT/HCPCS: 99199

== ENCOUNTER 2024-08-26 16:15 | Emergency (ER) | payer MEDICARE, MEDICAID, SELFPAY ==
[2024-08-26] VITALS (8 sets, daily range): BP systolic 182–212; BP diastolic 102–125; PULSE 90–124; RESP 15–19; TEMP 37.1; O2SAT 97–99
--- NOTE | ~2024-08-26 | XR_ITS ---
EXAMINATION: XR chest 2V Exam Date/Time: 08/26/2024 16:35 CASKET ASSEMBLER HISTORY: palpitations Comparison: X-ray chest and CTPA 05/02/2021. RESULT: Lines, tubes, and devices: Partially visualized posterior cervical fusion hardware and cerclage wire . Partially visualized posterior lumbar fusion hardware. Drug pump over the left posterior soft tissu es. Cardiac valve replacement. Vertebroplasty cement at T12. Cholecystectomy clips. Lungs and pleura: Clear. Cardiomediastinal silhouette: Stable. Other: No acute osseous or upper abdominal finding. IMPRESSION: No acute cardiopulmonary process. Reviewed, dictated and finalized at location K. ET ASSEMBLER
--- NOTE | 2024-08-26 16:22 | ECG_ITS ---
Test Date: 2024-08-26 16:25:42 Measurements Intervals [place] Rate: 119 P: 0 VA: 0 QRS: -18 QRSD: 80 T: 100 QT: 298 QTc: 420 Interpretive Statements ATRIAL FIBRILLATION WITH RAPID VENTRICULAR RESPONSE WITH ABERRANT CONDUCTION OR VENTRICULAR PREMATURE COMPLEXES ANTEROSEPTAL INFARCT, AGE INDETERMINATE INFERIOR INFARCT, AGE INDETERMINATE BORDERLINE ST-T WAVE ABNORMALITY- HIGH LATERAL LEADS BASELINE ARTIFACT- I, II, III, AVR, AVL, AVF, V1-V3 ABNORMAL ECG No previous ECG available for comparison Electronically Signed On 08-26-2024 19:01:10 CHILD SUPPORT INVESTIGATOR by Kevin Beyer D.O.
[2024-08-26 16:36] LABS: Basophils Absolute Auto 0.1 K/mm3 (0.0-0.1); Basophils Percent Auto 0.8 % (0.2-1.2); Eosinophils Absolute Auto 0.1 K/mm3 (0-0.3); Eosinophils Percent Auto 1.1 % (0-4.4); Hematocrit 42.7 % (37.0-47.0); Hemoglobin 13.5 g/dL (12.0-15.0); Immature Granulocyte Absolute 0.02 K/mm3 (0.00-0.031); Immature Granulocyte Percent A 0.2 % (0-0.5); Lymphocytes Absolute Auto 1.67 K/mm3 (0.9-3.2); Mean Corpuscular HGB Conc 31.6 g/dl (32-36); Mean Corpuscular Hemoglobin 27.7 pg (26-34); Mean Corpuscular Volume 87.5 fl (80-100); Monocytes Absolute Auto 0.9 K/mm3 (0.1-0.6); Monocytes Percent Auto 9.9 % (2.6-8.5); Neutrophils Absolute Auto 6.1 K/mm3 (1.3-6.7); Platelet Count Result 384 k/mm3 (150-375); Red Blood Count 4.88 M/mm3 (4.2-5.4); White Blood Count 8.8 K/mm3 (4.5-10.0)
[2024-08-26 16:55] LABS: INR 0.9; Partial Thromboplastin Time 22.9 Seconds (22.3-36.8); Prothrombin Time 12.1 Seconds (11.1-14.7)
[2024-08-26] MEDS: METOPROLOL TARTRATE INJ 5 MG/5 ML VIAL IV PUSH (17:41)
--- NOTE | 2024-08-26 18:20 | ED_ITS ---
HPI - General Adult General Chief complaint: Arrhythmia/Palpitations Stated complaint: High HR, has hx of afib Time Seen by Provider: 08/26/24 17:11 History of Present Illness HPI narrative: Patient 84-year-old female who presents emergency department with chief complaint of fast heart rate. The patient states that she has history of AFib and reports that her heart rate was ran fast today the patient was told to come the emergency department today because her heart rate was in the 120s the patient states she feels fine otherwise Related Data Home Medications ?Medication ?Instructions ?Recorded ?Confirmed ?Last Taken ?Type bimatoprost 0.01 % eye drops 1 drop ophthalmic (eye) DAILY 05/07/19 01/14/24 Unknown History (Lumigan) biotin 10,000 mcg capsule 10,000 mcg PO DAILY 05/07/19 01/14/24 Unknown History dorzolamide 2 % eye drops 1 drop ophthalmic (eye) BID 05/07/19 01/14/24 Unknown History melatonin 10 mg tablet 10 mg PO DAILY PRN Insomnia 05/07/19 01/14/24 Unknown History multivitamin 1 cap PO DAILY 05/07/19 01/14/24 Unknown History clobetasol 0.05 % topical ointment 1 applic topical BID PRN rash 12/11/22 01/14/24 Unknown History apixaban 2.5 mg tablet (Eliquis) 2.5 mg PO BID 06/12/23 08/26/24 Unknown History Allergies Allergy/AdvReac Type Severity Reaction Status Date / Time nickel Allergy Intermediate RASH Verified 08/26/24 16:52 oxycodone Allergy Intermediate HALLUCINATE Verified 08/26/24 16:52 S Review of Systems 2 Review of Systems: A 10 system review of systems was completed on the patient and is negative except for what is stated in the HPI. Nursing and ancillary documentation was reviewed. [facility] Past Medical History Medical History Body mass index [BMI] 22.0-22.9, adult BMI 21.0-21.9, adult Functional disorder of bladder Bunion of great toe of right foot At high risk for falls COVID-19 (~06/11/22) tested positive 06/11/2022. BMI 23.0-23.9, adult Chronic nonallergic rhinitis (~2021) Edema, peripheral Persistent proteinuria associated with type 2 diabetes mellitus (05/15/21) 1+ protein on urinalysis on 05/15/2021. 1+ protein on 12/04/2022. Protein is negative, urine microalbumin ratio elevated at 47 On 05/30/2023. Hypothyroidism, unspecified (05/15/21) TSH elevated at 10.0 on 05/16/2021. Previous TSH normal at 1.67 on 05/02/2021. TSH normal at 2.41 with free T4 1.54 on 12/04/2022. Hypertension associated with diabetes Hyperlipidemia associated with type 2 diabetes mellitus Frequent falls Atrial fibrillation with rapid ventricular response Syncope Laceration of occipital scalp Head injury, acute Glaucoma Diabetic peripheral neuropathy associated with type 2 diabetes mellitus Diabetic retinopathy associated with controlled type 2 diabetes mellitus Nail fungal infection Mycotic toenails Fatigue Heart murmur on physical examination Hx of urinary frequency BMI 25.0-25.9,adult Colon cancer screening Breast cancer screening by mammogram Peripheral arterial disease (09/05/20) patient had abnormal KEYA screening on 09/05/2020 with moderate decrease in the right foot and significant in the left Prurigo nodularis Chronic depression Urticaria Type 2 diabetes mellitus without complications glucose 89 and hemoglobin A1c 6.2 on 05/15/2021. Fasting glucose 102 with hemoglobin A1c 5.8 on 12/04/2022. Glucose 99 with hemoglobin A1c 5.6 with microalbumin ratio 47 on 05/30/2023. Rotator cuff arthropathy of right shoulder Spinal stenosis Surgical History Surgical History H/O eye surgery History of bilateral knee replacement History of partial hysterectomy History of back surgery Hx of fusion of cervical spine Family History Family History Mother Patient's mother is , Onset Age: 90 Old age Heart disease Breast cancer Father Patient's father is , Onset Age: 87 Heart disease Bladder cancer Social History Social History Smoking status: Former smoker Alcohol intake: current Substance use: never Substance use type: does not use Other substance usage details: pain pump/morphine Lack of Transportation: No Lack of Food: Never True Current Housing: I Have Housing Concerned About Future Housing: No Difficulty Paying Gas/Electric Bills: No Difficulty Paying for Meds: No Currently Unemployed: No Education: High School Diploma/GED Difficulty w/ Childcare or Family Care: No Gender identity (if verbalized by the patient): Female Spiritual care concerns: No Exam 2 Narrative: GENERAL: Well-appearing, well-nourished, and in no acute distress. HEAD: Normocephalic, atraumatic. EYES: PERRLA and EOMI. ENT: Nares clear, no rhinorrhea or epistaxis. Mucous membranes moist. NECK: Supple. CHEST: Clear to auscultation. No respiratory distress. HEART: Tachycardic rate and irregular rhythm. No murmur heard. Normal peripheral pulses. ABDOMEN: Soft, nontender, nondistended, normal active bowel sounds. EXTREMITIES: Normal range of motion. No edema. SKIN: Warm, dry, no rash. The patient's dressings were taken down on her lower extremities these were examined there was no large wound present NEURO: No focal deficits. Alert and oriented x3. PSYCH: Normal mood and affect. Course Vital Signs Vital signs: Vital Signs Pulse Rate 123 H 08/26/24 16:20 Respiratory Rate 18 08/26/24 16:20 Blood Pressure 208/109 H 08/26/24 16:20 Pulse Oximetry 97 08/26/24 16:20 Oxygen Delivery Room Air 08/26/24 16:20 Temperature 37.1 C 08/26/24 18:24 Pulse Rate 90 08/26/24 17:49 Respiratory Rate 16 08/26/24 17:49 Blood Pressure 194/102 H 08/26/24 17:49 Pulse Oximetry 97 08/26/24 17:49 Oxygen Delivery Room Air 08/26/24 16:20 Medical Decision Making [facility] Narrative Medical decision making narrative: Differential diagnosis includes AFib with RVR Patient was given 5 mg IV Lopressor The patient is feeling much better and would like to go home. Laboratory studies were obtained on the patient which showed a normal CBC CMP was within normal limits troponin was slightly elevated at 0.044 it was discussed with the patient staying in the hospital for observation or repeat troponin the patient states that this time she would like to go home patient understood the risk of missed heart attack understood the risk of her dysrhythmia the patient states she would like to go home and take her home medications she was instructed to return if she has complications Vital Signs Vital Signs: Vital Signs Pulse Rate 123 H 08/26/24 16:20 Respiratory Rate 18 08/26/24 16:20 Blood Pressure 208/109 H 08/26/24 16:20 Pulse Oximetry 97 08/26/24 16:20 Oxygen Delivery Room Air 08/26/24 16:20 Temperature 37.1 C 08/26/24 18:24 Pulse Rate 90 08/26/24 17:49 Respiratory Rate 16 08/26/24 17:49 Blood Pressure 194/102 H 08/26/24 17:49 Pulse Oximetry 97 08/26/24 17:49 Oxygen Delivery Room Air 08/26/24 16:20 Lab Data 08/26/24 16:30 08/26/24 17:54 Labs: Lab Results 08/26/24 08/26/24 Range/Units 16:30 17:54 WBC 8.8 (4.5-10.0) K/mm3 RBC 4.88 (4.2-5.4) M/mm3 Hgb 13.5 (12.0-15.0) g/dL Hct 42.7 (37.0-47.0) % MCV 87.5 (80-100) fl MCH 27.7 (26-34) pg MCHC 31.6 L (32-36) g/dl RDW 17.0 H (11.5-14.5) % Plt Count 384 H (150-375) k/mm3 MPV 10.0 (7.4-10.4) fl Immature Gran % (Auto) 0.2 (0-0.5) % Neut % (Auto) 69.0 (45.5-73.1) % Lymph % (Auto) 19.0 (18.3-44.2) % [place] % (Auto) 9.9 H (2.6-8.5) % Eos % (Auto) 1.1 (0-4.4) % Baso % (Auto) 0.8 (0.2-1.2) % Lymph # (Auto) 1.67 (0.9-3.2) K/mm3 [place] # (Auto) 0.9 H (0.1-0.6) K/mm3 Eos # (Auto) 0.1 (0-0.3) K/mm3 Baso # (Auto) 0.1 (0.0-0.1) K/mm3 Abs Immat Gran (auto) 0.02 (0.00-0.031) K/mm3 Absolute Neuts (auto) 6.1 (1.3-6.7) K/mm3 Absolute Nucleated RBC 0.000 (0.0-0.012) K/mm3 Nucleated RBC % 0.0 (0.0-0.2) % PT 12.1 (11.1-14.7) Seconds INR 0.9 APTT 22.9 (22.3-36.8) Seconds Sodium 136 L (137-145) mmol/L Potassium 3.4 (3.4-5.0) mmol/L Chloride 99 (98-107) mmol/L Carbon Dioxide 31 H (22-30) mmol/L Anion Gap 6 (4-12) mmol/L BUN 14 (7-17) mg/dL Creatinine 0.50 L (0.7-1.0) mg/dL Estim Creat Clear Calc 59 ml/min Estimated GFR > 60 (59 - ) Glucose 111 H (65-110) mg/dL Calcium 10.9 H (8.4-10.2) mg/dL Total Bilirubin 1.3 (0.2-1.3) mg/dL AST 53 H (14-36) U/L ALT 21 (6-35) U/L Alkaline Phosphatase 91 (38-126) U/L Troponin I 0.044 H* (0.000-0.034) ng/mL Total Protein 7.0 (6.3-8.2) g/dL Albumin 4.3 (3.5-5.1) g/dL Lipase 53 (23-300) U/L Discharge Plan Discharge Clinical Impression: Atrial fibrillation with RVR Patient Disposition: Left Against Medical Advice Condition: Stable Instructions: A-fib (Atrial Fibrillation) (ED) Patient Language: Venezuelan Prescriptions: No Action clobetasol 0.05 % ointment 1 applic topical BID PRN (Reason: rash) Patient Comments: treated by Dermatology Eliquis 2.5 mg tablet 2.5 mg PO BID Patient Comments: prescribed by Cardiology metoprolol tartrate 50 mg tablet 75 mg PO Q12H 90 Days Qty: 270 3RF famotidine [Pepcid] 40 mg tablet 40 mg PO DAILY Qty: 90 3RF fluticasone propionate [Flonase Allergy Relief] 50 mcg/actuation spray,suspension 1 spray intranasal BID Qty: 16 11RF Rx Instructions: administer into each nostril Lumigan 0.01 % drops 1 drop EACH EYE DAILY dorzolamide 2 % drops 1 drop EACH EYE BID multivitamin Capsule 1 cap PO DAILY melatonin 10 mg tablet 10 mg PO DAILY PRN (Reason: Insomnia) biotin 10,000 mcg capsule 10,000 mcg PO DAILY cyclobenzaprine 10 mg tablet 10 mg PO TID PRN (Reason: muscle spasm) Qty: 90 0RF ipratropium bromide 42 mcg (0.06 %) spray,non-aerosol 1 spray intranasal TID PRN (Reason: allergy symptoms) Qty: 15 5RF Rx Instructions: administer into each nostril celecoxib 200 mg capsule 200 mg PO DAILY PRN (Reason: pain) Qty: 90 3RF ropinirole 1 mg tablet 1 mg PO . q.h.s. Qty: 90 3RF atorvastatin 40 mg tablet 40 mg PO DAILY Qty: 90 3RF irbesartan 300 mg tablet 300 mg PO DAILY Qty: 90 3RF metformin 500 mg tablet extended release 24 hr 500 mg PO . with supper Qty: 90 3RF duloxetine 60 mg capsule,delayed release(DR/EC) 60 mg PO BID Qty: 180 3RF cephalexin 500 mg capsule 500 mg PO Q8H Qty: 30 0RF amlodipine [Norvasc] 5 mg tablet 5 mg PO DAILY Qty: 90 3RF methotrexate sodium 2.5 mg tablet 10 mg PO WEEKLY Qty: 16 3RF Follow-up/Referrals: Irwin Vega MD [Primary Care Provider] - Time of Disposition: 19:08
--- OUTSIDE RECORDS SUMMARY | 2024-08-26 18:20 | XMS_ITS | Encounter Summary ---
Author Organization [facility] Address [address] [place] [address] Care Team Providers Care Emulsion Operator Name Role Phone Irwin Vega MD Primary Care Provider Encounter Details Date Type Department Care Team (Late st Contact Info) Description 07/16/2019 Lab Requisition [facility] DermPath Lab [address] [place] [id number] [place] [address] Social History Tobacco Use Types Packs/Day Years Used Date Smoking Tobacco: Never Assessed Sex and Gender Information Value Date Recorded Sex Assigned at Not on file Gender Identity Not on file Sexual Orientation Not on file documented as of this encounter Plan of Treatment Not on file documented as of this encounter Procedures Procedure Name Priority Date/Time Associated Diagnosis Comments DERMATOPATHOLOGY Routine 07/15/2019 12:0 0 AM PARTNER ALLIANCE MANAGER documented in this encounter Results * DERMATOPATHOLOGY (07/15/2019 12:00 AM PARTNER ALLIANCE MANAGER) Case Report Dermatopathology Report Case: [id number] Authorizing Provider: Cisco Salinas MD Collected: 07/15/2019 12:00 AM Ordering Location: [facility] DermPath Lab Received: 07/16/2019 01:19 PM Pathologist: Roberto Ly MD Specimens: A) - Skin, left medial ankle B) - Skin, right upper back 0 11:37 AM PARTNER ALLIANCE MANAGER DERMATOPATHOLOGY LABORATORY Final Diagnosis Specimen A. 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 SKIN, right upper back: URTICARIA, CONSISTENT WITH (L50.9) (see direct immunofluorescence results [id number]) 0 11:37 AM [facility] DERMATOPATHOLOGY LABORATORY Clinical History A-B: R/O Dermatitis, psoriasis, eczema. 0 11:37 AM [facility] DERMATOPATHOLOGY LABORATORY Gross Description Specimen A: Received is one formalin filled container labeled with the patient's name and designated left medial ankle. The specimen consists of a shave biopsy measuring [id number]. Jar 0. Specimen B: Received is one formalin filled container labeled with the patient's name and designated right upper back. The specimen consists of a punch biopsy measuring 2e5d1dt bisected. Jar 0. 0 11:37 AM [facility] DERMATOPATHOLOGY LABORATORY Microscopic Description Specimen A. SKIN, left medial ankle: There is psoriasiform epidermal hyperplasia, compact hyperkeratosis, and fibrosis of the papillary dermis. At the tip of the rete ridges are scattered dyskeratotic keratinocytes and vacuolar alteration along the basal cell layer. In addition, an underlying band-like infiltrate composed mostly of lymphocytes focally obscures the dermal-epidermal junction. The dermis also shows a sparse, perivascular lymphocytic infiltrate surrounding dilated, thick-walled vessels, which are increased in number. 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 There are also underlying changes of stasis dermatitis. Clinical correlation is recommended as the findings in specimen B are those of urticaria; therefore, sampling bias should be considered. Specimen B. SKIN, right upper back: A sparse perivascular and interstitial mixed infiltrate composed of lymphocytes, eosinophils, and neutrophils is present within the dermis. There is associated dermal edema. See direct immunofluorescence results. 0 11:37 AM [facility] DERMATOPATHOLOGY LABORATORY Disclaimer An external and internal positive and negative controls are appropriate for the histochemical, immunohistochemical and immunofluorescence stain(s) in this case (if any), except where stated explicitly. The performance characteristics of the stain(s) cited in this report were developed and its performance characteristic determined by the Dermatopathology Laboratory at [facility], directed by Dr. Teressa Ly. These tests need not be, and therefore are not, approved by the [place] Food and Drug Administration. The tests are used for clinical purposes. Billing Codes Specimen Charges Stain Charges 90795 11694 1 1 0 11:37 AM PARTNER ALLIANCE MANAGER DERMATOPATHOLOGY LABORATORY Embedded Images 0 11:37 AM PARTNER ALLIANCE MANAGER DERMATOPATHOLOGY LABORATORY Pathology/Cytology TISSUE SPECIMEN FROM SKIN / Unknown 07/15/2019 07/16/2019 1:19 PM PARTNER ALLIANCE MANAGER Miscellaneous samples (specimen) TISSUE SPECIMEN FROM SKIN / Unknown 07/15/2019 07/16/2019 1:19 PM PARTNER ALLIANCE MANAGER Cisco Salinas MD LAB - PATHOLOGY/CYTO LOGY ORDERABLES DERMATOPATHOLOGY LABORATORY [facility] - Department of Dermatology [address] [place] [address] 5th Floor Lab B [address] [phone] documented in this encounter Visit Diagnoses Not on filedocumented in this encounter Care Teams Emulsion Operator Relationship Specialty Start Date End Date Irwin Vega MD PCP - General 12/21/14 documented as of this encounter
--- OUTSIDE RECORDS SUMMARY | 2024-08-26 18:20 | XMS_ITS | Encounter Summary ---
Author Organization [facility] Address [address] [place] [address] Care Team Providers Care Clock Maker Name Role Phone Irwin Vega MD Primary Care Provider [phone] Encounter Details Date Type Department Care Team (Late st Contact Info) Description 01/30/2018 Lab Requisition [facility] [address] [place] [address] [place] [address] Social History Tobacco Use Types [...] Priority Date/Time Associated Diagnosis Comments DERMATOPATHOLOGY Routine 01/29/2018 12:0 0 AM CDT documented in this encounter Results * DERMATOPATHOLOGY (01/29/2018 12:00 AM CDT) Case Report Dermatopathology Report Case: [id number] Authorizing Provider: Cisco Salinas MD Collected: 01/29/2018 12:00 AM Pathologist: Chelsey Gama MD Received: 01/30/2018 11:31 AM Specimen: Skin, left pretibia 8 3:42 PM CDT DERMATOPATHOLOGY LABORATORY Final Diagnosis Specimen A. 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 The specimen consists of a shave biopsy measuring 8x6x1 mm. Jar 0. 3:42 PM CDT DERMATOPATHOLOGY LABORATORY Microscopic Description Specimen A. SKIN, left pretibia: Sections reveal parakeratosis, acanthosis and keratinocyte dysmaturation which is most prominent in the lower epidermis. Focal nests are present in the dermis. The dermis also shows a sparse, perivascular lymphocytic infiltrate surrounding dilated, thick-walled vessels, which are increased in number. Additional deeper sections were obtained and reviewed. 3:42 PM T DERMATOPATHOLOGY LABORATORY Disclaimer An external and internal positive and negative controls are appropriate for the histochemical, immunohistochemical and immunofluorescence stain(s) in this case (if any), except where stated explicitly. The performance characteristics of the stain(s) cited in this report were developed and its performance characteristic determined by the Dermatopathology Laboratory at [facility]. These tests need not be, and therefore are not, approved by the [place] Food and Drug Administration. The tests are used for clinical purposes. Billing Codes Specimen Charges Stain Charges 45664 1 3:42 PM CDT DERMATOPATHOLOGY LABORATORY Embedded Images 3:42 PM CDT DERMATOPATHOLOGY LABORATORY Pathology/Cytolog y TISSUE SPECIMEN FROM SKIN / Unknown 01/29/2018 01/30/2018 11:31 AM CDT Cisco Salinas MD LAB - PATHOLOGY/CYTO LOGY ORDERABLES DERMATOPATHOLOGY LABORATORY [facility] - Department of Dermatology [address] 5th [place] [address], [facility] [phone] documented in this encounter Visit Diagnoses Not on filedocumented in this encounter Care Teams Clock Maker Relationship Specialty Start Date End Date Irwin Vega MD PCP - General 12/21/14 documented as of this encounter
--- OUTSIDE RECORDS SUMMARY | 2024-08-26 18:20 | XMS_ITS | Patient Health Summary ---
Author Organization [facility] Address [address] [place] [address] Care Team Providers Care Data Integrity Analyst Name Role Phone Irwin Vega MD Primary Care Provider [phone] Note from [facility],non-owned Affiliates and Associated Physician Practices is amultiple site organization consisting of ambulatory clinics and hospital sitesin [place], [place], [place] and [place]. This disclosure is being madepursuant to the Care Everywhere program and may not contain all information available regarding this patient. Last updated 18.[facility] Social History Tobacco Use Types Packs/Day Years Used Date Smoking Tobacco: Never Assessed Sex and Gender Information Value Date Recorded Sex Assigned at Not on file Gender Identity Not on file Sexual Orientation Not on file Procedures * IMMUNOFLUORESCENT STUDY DERM(Performed 07/15/2019) * DERMATOPATHOLOGY(Performed 07/15/2019) * DERMATOPATHOLOGY(Performed 01/29/2018) Results * IMMUNOFLUORESCENT STUDY DERM (07/15/2019 12:00 AM PANTOGRAPH WATCHER) Case Report Dermatopathol ogy Report Case: [id number] Authorizing Provider: Cisco Salinas MD Collected: 07/15/2019 12:00 AM Ordering Location: [facility] DermPath Lab Received: 07/16/2019 01:20 PM Pathologist: Roberto Ly MD Specimen: Skin, right upper back perilesional 0 11:38 AM [facility] DERMATOPATHOLOGY LABORATORY Final Diagnosis Specimen A. SKIN, right upper back perilesional: COLLOID BODIES (L98.9) (see microscopic description) (see fixed tissue results [id number]) 0 11:38 AM [facility] DERMATOPATHOLOGY LABORATORY Direct Immunofluorescence Report - Specimen A Specimen A IgA IgM IgG C3 CollV Fibrinogen Epidermis Negative Negative Negative Negative Negative Negative Basement Membrane Negative Negative Negative Negative 2+ Negative Vessels Negative Negative Negative Negative 2+ Negative Interstitium Colloid Colloid Negative Colloid Negative Non specific 0 11:38 AM [facility] DERMATOPATHOLOGY LABORATORY Clinical History R/O Dermatitis,ps oriasis,eczem a. 0 11:38 AM [facility] DERMATOPATHOLOGY LABORATORY Gross Description Specimen A: Received is one Nirav's media filled container labeled with the patient's name and designated right upper back perilesional. The specimen consists of a punch biopsy measuring 1f3k0qa. The specimen is submitted in whole for direct immunofluores cence testing. 0 11:38 AM PANTOGRAPH WATCHER DERMATOPATHOLOGY LABORATORY Microscopic Description Specimen A. SKIN, right upper back perilesional: Controls were run in parallel. There is C3, IgA, and IgM in the papillary dermis consistent with colloid bodies. Staining is negative with IgG. Collagen IV stains the basement membrane zone and vessels. Fibrinogen shows non-specific staining. Colloid bodies represent dyskeratotic keratinocytes that can be seen in lichenoid / interface dermatitis or in areas of chronic irritation / rubbing. See fixed tissue results. 0 11:38 AM PANTOGRAPH WATCHER DERMATOPATHOLOGY LABORATORY Disclaimer An external and internal positive and negative controls are appropriate for the histochemical , immunohistoch emical and immunofluores cence stain(s) in this case (if any), except where stated explicitly. The performance characteristi cs of the stain(s) cited in this report were developed and its performance characteristi c determined by the Dermatopathol ogy Laboratory at [facility], directed by Dr. Teressa Ly. These tests need not be, and therefore are not, approved by the [place] Food and Drug Administratio n. The tests are used for clinical purposes. Billing Codes Specimen Charges Stain Charges 55205 55330 17487 95816 95378 89972 1 1 1 1 1 1 0 11:38 AM [facility] DERMATOPATHOLOGY LABORATORY Embedded Images 0 11:38 AM [facility] DERMATOPATHOLOGY LABORATORY Pathology/Cytolog y TISSUE SPECIMEN FROM SKIN / Unknown 07/15/2019 07/16/2019 1:20 PM PANTOGRAPH WATCHER Cisco Salinas MD LAB - PATHOLOGY/CYTO LOGY ORDERABLES DERMATOPATHOLOGY LABORATORY [facility] - Department of Dermatology [address], 5th [place] [address], [facility] [phone] * DERMATOPATHOLOGY (07/15/2019 12:00 AM PANTOGRAPH WATCHER) Only the most recent of2 resultswithin the time period is included. Case Report Dermatopathology Report Case: [id number] Authorizing Provider: Cisco Salinas MD Collected: 07/15/2019 12:00 AM Ordering Location: [facility] DermPath Lab Received: 07/16/2019 01:19 PM Pathologist: Roberto Ly MD Specimens: A) - Skin, left medial ankle B) - Skin, right upper back 0 11:37 AM [facility] DERMATOPATHOLOGY LABORATORY Final Diagnosis Specimen A. 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 SKIN, right upper back: URTICARIA, CONSISTENT WITH (L50.9) (see direct immunofluorescence results [id number]) 0 11:37 AM [facility] DERMATOPATHOLOGY LABORATORY Clinical History A-B: R/O Dermatitis, psoriasis, eczema. 0 11:37 AM [facility] DERMATOPATHOLOGY LABORATORY Gross Description Specimen A: Received is one formalin filled container labeled with the patient's name and designated left medial ankle. The specimen consists of a shave biopsy measuring 9m3b9ue. Jar 0. Specimen B: Received is one formalin filled container labeled with the patient's name and designated right upper back. The specimen consists of a punch biopsy measuring 7l5g9cf bisected. Jar 0. 0 11:37 AM [facility] DERMATOPATHOLOGY LABORATORY Microscopic Description Specimen A. [...] See direct immunofluorescence results. 0 11:37 AM [facility] DERMATOPATHOLOGY LABORATORY Disclaimer An external and internal positive and negative controls are appropriate for the histochemical, immunohistochemical and immunofluorescence stain(s) in this case (if any), except where stated explicitly. The performance characteristics of the stain(s) cited in this report were developed and its performance characteristic determined by the Dermatopathology Laboratory at [facility], directed by Dr. Teressa Ly. These tests need not be, and therefore are not, approved by the [place] Food and Drug Administration. The tests are used for clinical purposes. Billing Codes Specimen Charges Stain Charges 26655 34347 1 1 0 11:37 AM PANTOGRAPH WATCHER DERMATOPATHOLOGY LABORATORY Embedded Images 0 11:37 AM [facility] DERMATOPATHOLOGY LABORATORY Pathology/Cytology TISSUE SPECIMEN FROM SKIN / Unknown 07/15/2019 07/16/2019 1:19 PM PANTOGRAPH WATCHER Miscellaneous samples (specimen) TISSUE SPECIMEN FROM SKIN / Unknown 07/15/2019 07/16/2019 1:19 PM PANTOGRAPH WATCHER Cisco Salinas MD LAB - PATHOLOGY/CYTO LOGY ORDERABLES DERMATOPATHOLOGY LABORATORY [facility] - Department of Dermatology [facility] 5th Floor Lab B [address] [phone] Care Teams Data Integrity Analyst Relationship Specialty Start Date End Date Irwin Vega MD PCP - General 12/21/14
--- OUTSIDE RECORDS SUMMARY | 2024-08-26 18:20 | XMS_ITS | Referral Summary ---
Author Organization [facility] Address [address] [place] [address] Care Team Providers Care Noise Tester Name Role Phone Irwin Vega MD Primary Care Provider [phone] Source Comments [facility],non-owned Affiliates and Associated Physician Practices is amultiple site organization consisting of ambulatory clinics and hospital sitesin [place], [place], [place] and [place]. This disclosure is being madepursuant to the Care Everywhere program and may not contain all information available regarding this patient. Last updated 18.[facility] Social History Tobacco Use Types Packs/Day Years Used Date Smoking Tobacco: Never Assessed Sex and Gender Information Value Date Recorded Sex Assigned at Not on file Gender Identity Not on file Sexual Orientation Not on file Plan of Treatment Not on file Care Teams Noise Tester Relationship Specialty Start Date End Date Irwin Vega MD PCP - General 12/21/14
--- OUTSIDE RECORDS SUMMARY | 2024-08-26 18:20 | XMS_ITS | Clinical Summary ---
Author Organization [facility] Address [address] [place] [address] Care Team Providers Care Pastoral Ministries Professor Name Role Phone Irwin Vega MD Primary Care Provider [phone] [facility],non-owned Affiliates and Associated Physician Practices is amultiple site organization consisting of ambulatory clinics and hospital sitesin [place], [place], [place]. This disclosure is being madepursuant to the Care Everywhere program and may not contain all information available regarding this patient. Last updated 18.[facility] Social History Tobacco Use Types Packs/Day Years Used Date Smoking Tobacco: Never Assessed Sex and Gender Information Value Date Recorded Sex Assigned at Not on file Gender Identity Not on file Sexual Orientation Not on file Plan of Treatment Health Maintenance Due Date Last Done Comments BONE DENSITY TESTING 1941 MEDICARE AWV 12 MONTHS 1941 DTAP/TDAP/TD VACCINES (1 - Tdap) 1960 PNEUMOCOCCAL VACCINE 50+ (1 of 1 - PCV) 1991 ZOSTER VACCINE (1 of 2) 1991 Respiratory Syncytial Virus (RSV) Vaccine Pt: or over 60 yrs (1 - 1-dose 75+ series) 2016 COVID-19 VACCINE (2023-2 5 season) 2024 INFLUENZA VACCINE (#1) 2024 DEPRESSION SCREENING 07/01/2024 HEPATITIS B VACCINE Aged Out No longe r eligible based on patient's age to complete this topic HIB VACCINE Aged Out No longer eligi ble based on patient's age to complete this topic HPV VACCINE Aged Out No longer eligi ble based on patient's age to complete this topic MENINGOCOCCAL (Group B) VACCINE Aged Out No longer eligible based on patient's age to complete this topic MENINGOCOCCAL VACCINE Aged Out No michael georgina eligible based on patient's age to complete this topic Care Teams Pastoral Ministries Professor Relationship Specialty Start Date End Date Irwin Vega MD PCP - General 12/21/14
--- OUTSIDE RECORDS SUMMARY | 2024-08-26 18:20 | XMS_ITS | Continuity of Care Document ---
Author Organization [facility] Address [address] [place] [address] [place] [phone] Phone Care Team Providers Care Structural Steel Worker Name Role Phone Tomy Alonso Unavailable Unavailable Procedures Procedure Date THERAPEUTIC EXERCISES NEUROMUSCULAR RE-ED MANUAL THERAPY FUNC ACTIVITY HOT/COLD PACK Medications Name Dose Freq Route DOC Mar THERAPEUTIC EXERCISES NEUROMUSCULAR RE-ED MANUAL THERAPY FUNC ACTIVITY HOT/COLD PACK Medications Name Dose Freq Route DOC Mar THERAPEUTIC EXERCISES NEUROMUSCULAR RE-ED MANUAL THERAPY FUNC ACTIVITY HOT/COLD PACK Medications Name Dose Freq Route DOC Mar THERAPEUTIC EXERCISES NEUROMUSCULAR RE-ED MANUAL THERAPY FUNC ACTIVITY Medications Name Dose Freq Route DOC Mar PT EVALUATION THERAPEUTIC EXERCISES NEUROMUSCULAR RE-ED FUNC ACTIVITY Mobility: Walking And Moving Limitations -Curent Mobility: Walking And Moving Limitation- Goal Medications Name Dose Freq Route DOC Mar Pain Assess Positive -04/09 DOC 2013 BMI Normal and DOC 18-64 yo=18.5-25.0 65 + yo=23.0-30.0 Future Fall Risk Positive 2+ Falls or 1 Fall w/ Injury RA DOC Scre ened for Fall Risk Plan of Care DOC Functional Outcome Assessmen t documented, deficits identified, treatment plan es Advance Directives Directive Yes / No Effective Date File Name No Information Encounters Encounter Description Practice Location Reason(s) For Visit Diagnoses Date Provider Providers Copied on Encounter [address], [id number], tel:[phone] [place] No Information 9- 4 Muehl Otmy. [address] [place] [address], [address], [place], [place], [facility], . tel:[phone] [employer] [place], [place], [id number], [phone] [place] No Information 2 4 Muehl Tomy. [address] [place] [address], [address], [place], [place], [facility], . tel: [phone] Referring Provider: Abimael Luo [address] [place], [address]. tel:[phone] [address] [facility], [place], [place], [id number], tel:[phone] [place] No Information 0-201 4 Muehl Tomy. [address] [place] [address], [address], [place], [place], [facility], . tel:[phone] Referring Provider: Abimael Luo, [address] [place], [address]. tel:[phone], [place], [place], [id number], tel:[phone] [place] No Information 6-201 4 Muehl Tomy. [address] [place] [address], [address], [place], [place], [facility], . tel: [phone] Referring Provider: Abimael Luo [address] [place], [address]. tel:[phone] [facility], [address] [place] [address], [place], [place], [id number], tel:[phone] [place] No Information 4 Andi Gil. [address], [address], [place], [place], [facility], . tel:[phone] Referring Provider: Abimael Luo, [address] [place], [address]. tel:[phone] [address], [place], [place], [id number], tel:[phone] [place] Pain in joint involving ankle and foot 4 Saige Huitron. [address] [facility] [address], [address], [place], [address], . tel:[phone] Referring Provider: Abimael Luo, [address] [place], [address]. tel:[phone] Family History Family Member Type Diagnosis Age At Onset No Information Payers Payer name Insurance type Covered constitution party ID Authoriza tidesmond(s) [place] [id number] [facility] [id number] Social History Type Description Quantity Date Captured Comments Sex Female Smoking Status No Information Chief Complaint And Reason For Visit No Information Reason For Referral Reason For Referral No Information History Of Present Illness Encounter Date Complaint History Of Prese nt Illness No Information Functional Status Date Functional Assessmen t No Information Instructions Date Instruction Additional Infor mation No Information Assessments Type Assessment Date No Information Patient Care Teams Name Effective Dates (start - stop) Status Members No Information
--- OUTSIDE RECORDS SUMMARY | 2024-08-26 18:20 | XMS_ITS | Clinical Summary ---
Author Organization [facility] Address [address] [place] [address] Care Team Providers Care Manager Fashion Name Role Phone Irwin Vega MD Primary Care Provider [phone] Allergies Active Allergy Reactions Criticality Noted Date Comments Adhesive Tape-Silicones Rash Medium 02/12/2018 Nickel Itching,Rash Medium Oxycodone-Acetaminoph en Hallucinations Medium Tolerates plain acetaminophen 06/10/[address] (CYMBALTA) 60 mg capsule Take 1 capsule (60 mg total) by mouth 2 (two) times a day Active metFORMIN (GLUCOPHAGE) 500 mg tablet Take 1 tablet (500 mg total) by mouth nightly Active rOPINIRole (REQUIP) 1 mg tablet Take 1 tablet (1 mg total) by mouth nightly Active bimatoprost (LUMIGAN) 0.01 % ophthalmic drops Administer 1 drop into both eyes nightly Active omega-3s/dha/epa/ fish oil/D3 (VITAMIN-D + OMEGA-3 ORAL) Take 1 tablet by mouth daily Active dorzolamide-timol oL (COSOPT) 22.3-6.8 mg/mL ophthalmic solution Administer 1 drop into the right eye 2 (two) times a day Active multivitamin with minerals tablet Take 1 tablet by mouth daily Active atorvastatin (LIPITOR) 40 mg tablet Take 1 tablet (40 mg total) by mouth nightly 1 Active methotrexate 2.5 mg tablet 4 tablets (10 mg total) every 7 days 2 Active metoprolol tartrate (LOPRESSOR) 50 mg immediate release tablet Take 1 tablet (50 mg total) by mouth 2 (two) times a day Active melatonin 10 mg tablet Take 1 tablet (10 mg total) by mouth nightly Active traMADoL (ULTRAM) 50 mg tablet Take 1 tablet (50 mg total) by mouth every 6 (six) hours as needed for pain Active gabapentin (NEURONTIN) 300 mg capsule Take 1 capsule (300 mg total) by mouth 3 (three) times a day 3 Active celecoxib (CeleBREX) 200 mg capsule Take 1 capsule (200 mg total) by mouth daily 3 Active brimonidine (ALPHAGAN) 0.15 % ophthalmic solution Administer 1 drop into the right eye daily 3 Active UNABLE TO FIND Medtronic Pain Pump Implanted 01/17/21 Active losartan (COZAAR) 25 mg tablet Take 1 tablet (25 mg total) by mouth daily 30 tablet 11 4 10/21/19 25 Active aspirin 81 mg enteric coated tablet Take 1 tablet (81 mg total) by mouth daily 30 tablet 11 4 10/21/19 25 Active Eliquis 2.5 mg tabletIndications :Persistent atrial fibrillation (HCC) TAKE 1 TABLET BY MOUTH TWICE DAILY 200 tablet 2 4 Active furosemide (LASIX) 20 mg tabletIndications :Bilateral lower extremity edema TAKE 1 TABLET BY MOUTH DAILY NEEDED FOR LOWER EXTREMITY EDEMA 100 tablet 2 4 Active Active Problems Problem Noted Date Diagnosed Date Aortic stenosis 06/10/2023 Other thrombophilia 07/23/2022 Bilateral lower extremity edema 12/18/2021 Fall 12/11/2021 Falls frequently 06/19/2021 Nonrheumatic aortic valve stenosis 05/17/2021 Persistent atrial fibrillation 05/17/2021 Spondylosis of lumbar region without myelopathy or radiculopathy 01/23/2021 Closed wedge compression fracture of T12 vertebr a 02/12/2018 Assessment & Plan (02/12/2018 8:33 PM CDT): -Pt presenting with worsening of chronic back pain, found to have a T12 compression fracture, likely chronic. No neurologic deficits -Ortho spine consulted in ED. Prelim recs are non-op management and TLSO brace. Per discussion with ortho on-call, no specific activity limitations although would ideally have TLSO brace prior to worsening with therapy -OSH CT uploaded to [facility] -Pain control with home pain meds, Fentanyl patch 75, Hector 7.5/325 Q6, Cymbalta 60 Pre-diabetes 02/12/2018 Assessment & Plan (02/12/2018 8:39 PM CDT): -Pt reports hx of borderline diabetes -Check A1c -Hold metformin while inpatient Hypercalcemia 02/12/2018 Assessment & Plan (02/12/2018 8:38 PM CDT): -Mild hypercalcemia with Ca 10.8 -Added on albumin, vitD level. Check PTH with next labs. Lumbar post-laminectomy syndrome 02/12/2018 Assessment & Plan (02/12/2018 8:38 PM CDT): -Home pain meds as noted above. Have held Celebrex due to mild CKD (CrCL ~50). Spondylolisthesis 04/14/2012 Hypertension Bilateral lower extremity edema Hyperlipidemia Resolved Problems Problem Noted Date Diagnosed Date Resolved Date Preoperative cardiovascular examination 07/24/2021 12/11/2021 Tachycardia, paroxysmal (CMS/HCC) 02/12/2018 06/19/2021 Assessment & Plan (02/12/2018 8:37 PM CDT): -Intermittent episodes of tachycardia with HR into 160s. Received multiple doses of PO and IV beta blockers in ED. ED reported pt to have afib, however review of EKG shows a regular narrow complex tachycardia without p waves which is most c/w SVT although ddx includes aflutter w/RVR. -Metop 25 Q6. If has additional episodes overnight, will give adenosine. -Monitor on tele -If continues to have tachycardia despite BB, would c/s EP -Hold off on anticoaguation as this is most likely SVT -Check TSH Hypertensive urgency 02/12/2018 024 Assessment & Plan (02/12/2018 8:37 PM CDT): -Asymptomatic -Metop as noted above. Start amlodipine. Will also likely need ACEi/ARB or other anti-hypertensive. 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 Arthritis Osteoporosis Type 2 diabetes mellitus (HCC) Anxiety Anemia Cancer (CMS/HCC) (HCC) skin canc er Family History Medical History Relation Name Comments Cancer Father Heart disease Father Cancer Mother Heart disease Mother Relation Name Status Comments Father (Age 86) bladder ca ncer Mother (Age 90) breast can cer Social History Tobacco Use Types Packs/Day Years Used Date Smoking Tobacco: Former Cigarettes 2 30 1 968 1997 Smokeless Tobacco: Never Alcohol Use Standard Drinks/Week Comments No 0 (1 standard drink = 0.6 oz pur e alcohol) [facility] Utilities Answer Date Recorded In the past 12 months has [employer], gas, oil, or water [employer] threatened to shut off services in your home? No 06/11/2023 Social Connection and Isolat ion Panel [NHANES] Answer Date Recorded In a typical week, how many times do you talk on the phone with family, friends, or neighbors? More than three times a week 06/11/2023 How often do you get togethe r with friends or relatives? More than three times a week 06/11/2023 How often do you attend [facility] or episcopalian services? Never 06/11/2023 Do you belong to any clubs o r organizations such as anglican groups, unions, fraternal or athletic groups, or school groups? No 06/11/2023 How often do you attend meet ings of the clubs or organizations you belong to? Never 06/11/2023 Are you , , di vorced, , never , or living with a partner? 06/11/2023 AUDIT-C Answer Date Recorded Frequency of Alcohol Consumption Not on file 06/10/2023 Q2: How many drinks containi ng alcohol do you have on a typical day when you are drinking? Patient does not drink 3 Frequency of Binge Drinking Not on file 05/31 Overall Financial Resource Strain (CARDIA) Answe r Date Recorded How hard is it for you to pa y for the very basics like food, housing, medical care, and heating? Not hard at all 06/11/2023 PHQ-2 Answer Date Recorded PHQ-2 Score 6 02/21/2019 Hunger Vital Sign Answer Date Recorded Within the past 12 months, y ou worried that your food would run out before you got the money to buy more. Never true 06/11/20 23 Within the past 12 months, t he food you bought just didn't last and you didn't have money to get more. Never true 06/11/2023 PRAPARE - Transportation Answer Date Re corded In the past 12 months, has l ack of transportation kept you from medical appointments or from getting medications? No 05/31 In the past 12 months, has l ack of transportation kept you from meetings, work, or from getting things needed for daily living? No 06/11/2023 Housing Stability Vital Sign Answer Baltazar e Recorded In the last 12 months, was t here a time when you were not able to pay the mortgage or rent on time? No 06/11/2023 In the last 12 months, how many places have you lived? 1 06/11/2023 In the last 12 months, was t here a time when you did not have a steady place to sleep or slept in a half-way (including now)? No 06/11/2023 Personal Safety Answer Date Recorded Have you ever been in or are you currently in a harmful physical or emotional relationship or is someone making you feel afraid or unsafe? Denies 06/10/2023 Comments No Sex and Gender Information Value Date Recorded Sex Assigned at Not on file Legal Sex Female 1:54 AM CONTROL MANAGER Gender Identity Not on file Sexual Orientation Not on file Obstetrics History Last Filed Vital Signs Vital Sign Reading Time Taken Comments Blood Pressure 130/78 10/21/2023 10:08 AM CDT Pulse 80 10/21/2023 10:08 AM CDT Temperature 36.9 C (98.4 F) 06/11/2023 12:19 PM CONTROL MANAGER Respiratory Rate 18 06/11/2023 12:19 PM CONTROL MANAGER Oxygen Saturation 97% 10/21/2023 10:08 AM CDT Inhaled Oxygen Concentration - - Weight 57.6 kg (127 lb) 10/21/2023 10:08 AM CDT Height 157.5 cm (5' 2 ) 10/21/2023 10:08 AM CDT Body Mass Index 23.23 10/21/2023 10:08 AM CDT Plan of Treatment Health Maintenance Due Date Last Done Comments Osteoporosis Screening-Bone Density Scan 1941 Hepatitis B Screening 1959 Well Visit 65+ 2006 Depression Screening 03/06/2019 03/06/2018, 03/06/20 18 Covid-19 Vaccine (2023-2 5 season) 2024 05/17/2021, 10/10/2020, 09/19/2020 Influenza Vaccine (#1) 2024 , 03/04/2018, 06/13/2016, Additional history exists Fall Risk Assessment 06/11/2024 06/11/2023 DTaP/Tdap/Td Vaccine (2 - Td or Tdap) 11/07/2030 11/07/2020 Pneumococcal vaccine 65+ Completed 03/04/2018, 05/31 Zoster Vaccine Completed 04/21/2020, 12/31, 07/15/2013 Medical Devices Implanted Type Area Batch Roller Operator Device Identifier Shelf Expiration Date Model / Serial / Lot Medtronic Inc 8780 Ascenda 4fr .5mm 114cm 86cm 2 Piece Connector Pin Flexible Closed - [id number] Implanted:Qty: 1 on 01/17/2021 by He Sorenson MD at [facility] Left: Back Medtronic Inc 12/05/2022 8780 / / [id number] Medtronic Neuro 8637-20 Synchromed Ii .78in [place] Filter Mesh Pouch Programmable - [id number] - [id number] Implanted:Qty: 1 on 01/17/2021 by He Sorensno MD at [facility] Left: Back Medtronic Inc 04/27/2022 8637-20 / [id number] / [employer]iva [employer] Device Closure Vascade Od5 Fr Femoral Artery [id number] - [id number] Implanted:Qty: 1 on 03/27/2023 by Dimitri Garner MD at [facility] [employer] Medical Inc 12/24/2024 700-500DX- 05U / / [id number] [employer] Kit Valve Coronary Aortic Tissue Ramsey 3 Ultra 23mm [id number] - [id number] - [id number] Implanted:Qty: 1 on 06/10/2023 by Dimitri Garner MD at [facility] [employer] 03/05/2026 [id number] / [id number] / Godoy V[employer] Device Clsr Perclose Prostyle Sut-Mediatd Closure-Repair Sys 87794-09 - [id number] Implanted:Qty: 1 on 06/10/2023 by Dimitri Garner MD at [facility] [employer] 02/28/2025 1 2773-03 / / [id number] [employer]oy Vascular Device Clsr Perclose Prostyle Sut-Mediatd Closure-Repair Sys 33413-45 - [id number] Implanted:Qty: 1 on 06/10/2023 by Dimitri Garner MD at [facility] [employer] 01/28/2025 1 2773-03 / / [id number] [facility] [employer] [facility] Device Vascular Closure Femoral Artery Bioabsorbable Dual Method Vascade 6-7fr Collagen [id number] - [id number] Implanted:Qty: 1 on 06/10/2023 by Dimitri Garner MD at [facility] Medical Inc 02/07/2025 700-580I-0 5U / / [id number] 0A Insurance MEDICARE [employer] [facility] MEDIC[facility] Address: [address] [address] [place] [address] IDPA IDPA Member Subscriber Plan / Payer (Ef fective 2023-Present) Name:Maday Barlow Relation to Subscriber:Self Name:Maday Barlow Payer ID:[id number] Group ID:Not on file Type:MEDICAID [place] Address: [place] [id number] MEDICARE [employer] [facility] MEDICARE Address: [address] [address] [place] [address] [facility] MEDIC[facility] Address: [address] [address] [place] [address] IDPA Advance Directives For more information, please contact: [phone] Documents on File Type Date Recorded Patient Relocation Commissioner Expl anation ADVANCE DIRECTIVE 03/28/2023 6:37 PM AYANNA Santos WILL * Full Code (Latest Code Status on File) Date Activated Date Inactivated Comments 03/27/2023 1:35 PM 03/27/2023 7:10 PM * LIMITED - No CPR Date Activated Date Inactivated Comments 02/12/2018 10:08 PM 02/13/2018 8:59 PM Question Answer Comments Provide aggressive medical m anagement before a full cardiopulmonary arrest occurs. Use antibiotics, IV Fluids, and medical treatment unless specifically selected below: No intubation * Full Code Date Activated Date Inactivated Comments 02/12/2018 8:05 PM 02/12/2018 10:08 PM Care Teams Manager Fashion Relationship Specialty Start Date End Date Irwin Vega MD [address] [address] PCP - General 02/08/11
--- OUTSIDE RECORDS SUMMARY | 2024-08-26 18:20 | XMS_ITS | Referral Summary ---
Author Organization [facility] Address [address] [place] [address] Care Team Providers Care Chef Saucier Name Role Phone Irwin Vega MD Primary Care Provider [phone] Allergies Active Allergy Reactions Criticality Noted Date [...] with home pain meds, Fentanyl patch 75, [place] 7.5/325 Q6, Cymbalta 60 Pre-diabetes 02/12/2018 Assessment [...] also likely need ACEi/ARB or other anti-hypertensive. Social History Tobacco Use Types Packs/Day Years Used Date Smoking Tobacco: Former Cigarettes 2 30 968 1997 Smokeless Tobacco: Never Alcohol Use Standard Drinks/Week Comments No 0 (1 standard drink = 0.6 oz pur e alcohol) [facility] Utilities Answer Date Recorded In the past 12 months has e [employer], gas, oil, or water company threatened to shut off services in your [...] week 06/11/2023 How often do you attend chur ch or moravian services? Never 06/11/2023 Do you belong to any clubs o r organizations such as zoroastrian groups, unions, fraternal or athletic groups, or [...] you are drinking? Patient does not drink Frequency of Binge Drinking Not on file [...] place to sleep or slept in a skilled nursing (including now)? No 06/11/2023 Personal Safety Answer Date Recorded Have you ever been in or are you currently in a harmful physical or emotional relationship or is someone making you feel afraid or unsafe? Denies 06/10/2023 Comments No Sex and Gender Information Value Date Recorded Sex Assigned at Not on file Legal Sex Female 1:54 AM PROJECT DESIGN ENGINEER Gender Identity Not on file Sexual Orientation Not on file Last Filed Vital Signs Vital Sign Reading Time Taken Comments Blood Pressure 130/78 10/21/2023 10:08 AM CDT Pulse 80 10/21/2023 10:08 AM CDT Temperature 36.9 C (98.4 F) 06/11/2023 12:19 PM PROJECT DESIGN ENGINEER Respiratory Rate 18 06/11/2023 12:19 PM PROJECT DESIGN ENGINEER Oxygen Saturation 97% 10/21/2023 10:08 AM CDT Inhaled Oxygen Concentration - - Weight 57.6 kg (127 lb) 10/21/2023 10:08 AM CDT Height 157.5 cm (5' 2 ) 10/21/2023 10:08 AM CDT Body Mass Index 23.23 10/21/2023 10:08 AM CDT Plan of Treatment Not on file Medical Devices Implanted Type Area Supervisor Display Fabrication Device Identifier Shelf Expiration Date Model / Serial / Lot Medtronic Inc 8780 Ascenda 4fr .5mm 114cm 86cm 2 Piece Connector Pin Flexible Closed - [id number] Implanted:Qty: 1 on 01/17/2021 by He Sorenson MD at [facility] Left: Back Medtronic Inc 12/05/2022 8780 / / [id number] Medtronic Neuro 8637-20 Synchromed Ii .78in [employer] Filter Mesh Pouch Programmable - [id number] - [id number] Implanted:Qty: 1 on 01/17/2021 by He Sorenson MD at [facility] Left: Back Medtronic Inc 04/27/2022 8637-20 / [id number] / [employer] Inc Device Closure Vascade Od5 Fr Femoral Artery [id number] - [id number] Implanted:Qty: 1 on 03/27/2023 by Dimitri Garner MD at [facility] 12/24/2024 700-500DX- 05U / / [id number] [employer] Kit Valve Coronary Aortic Tissue Ramsey 3 Ultra 23mm [id number] - [id number] - [id number] Implanted:Qty: 1 on 06/10/2023 by Dimitri Garner MD at [facility] [employer] 03/05/2026 [id number] / [id number] / [employer]oy V[employer] Device Clsr Perclose Prostyle Sut-Mediatd Closure-Repair Sys 79598-00 - [id number] Implanted:Qty: 1 on 06/10/2023 by Dimitri Garner MD at [facility] Vascular 02/28/2025 1 2773-03 / / [id number] [employer] Vascular Device Clsr Perclose Prostyle Sut-Mediatd Closure-Repair Sys 44673-11 - [id number] Implanted:Qty: 1 on 06/10/2023 by Dimitri Garner MD at [facility] Vascular 01/28/2025 1 2773-03 / / [id number] [employer] Inc Device Vascular Closure Femoral Artery Bioabsorbable Dual Method Vascade 6-7fr Collagen [id number] - [id number] Implanted:Qty: 1 on 06/10/2023 by Dimitri Garner MD at [facility] Inc 02/07/2025 700-580I-0 5U / / [id number] 0A Insurance [place]AL MEDICARE [employer] MEDICARE SOLUTIONS IDPA Advance Directives For more information, please contact: [phone] Documents on File Type Date Recorded Patient Long Chain Quiller Tender Expl anation ADVANCE DIRECTIVE 03/28/2023 6:37 PM AYANNA BERGER * Full Code (Latest Code Status on [...] 8:05 PM 02/12/2018 10:08 PM Care Teams Chef Saucier Relationship Specialty Start Date End Date Irwin Vega MD [address] [address] PCP - General 02/08/11
--- OUTSIDE RECORDS SUMMARY | 2024-08-26 18:20 | XMS_ITS ---
Author Name Talia Riggins NP Address Unknown Phone tel: Organization Unknown Address Unknown Phone tel: Care Team Providers Care Head Of Ethics And Compliance Name Role Phone aTlia Riggins NP Primary Care Provider tel: Kourtney Morgan Primary Care Provider tel: ALLERGIES, ADVERSE REACTIONS Substance Reaction Severity Status nickel, [Code: 1167141] itching/rash Unassigned Acti ve silicone, [Code: ] rash Unassigned Active oxycodone, [Code: 7804] hallucinations Unassigned Ac tive Adhesive Tape (Not Checked), [Code: ] rash Anusha ssigned Active ASSESSMENTS Data in this section may be excluded or not available. SOCIAL HISTORY Description Effective Dates Sex F (Female) VITAL SIGNS Type Value Date Height (Code: 8302-2 ) 63 ( [in_i] ) August 22, 2024 BP (Systolic) (Code: 8480-6 ) 168 ( mm[Hg] ) Fe bruary 2024 BP (Diastolic) (Code: 8462-4 ) 107 ( mm[Hg] ) F ebruary 2024 Pulse (Code: 8867-4 ) 86 ( /min ) August 22, 2024 Oxygen Saturation (Code: 73538-6 ) 96 ( % ) August 22, 2024 Inhaled Oxygen Concentration (Code: 3150-0 ) 21 ( % ) August 22, 2024 Temperature (Code: 8310-5 ) 97 ( [degF] ) Febr uary 2024 Respiration (Code: 9279-1 ) 16 ( /min ) Febr uary 2024 Faces Pain Scale (Code: 48031-0 ) 4 - Hurts Oleg le More ( ) August 22, 2024 PROBLEMS Data in this section may be excluded or not available. Patient Care Teams * Care Head Of Ethics And Compliance Role on Team Date Gilson. Talia Oconnell
--- OUTSIDE RECORDS SUMMARY | 2024-08-26 18:20 | XMS_ITS | Continuity of Care Document ---
Author Organization [facility] Address [address] [place] [address] Insurance Providers Payer Plan Claims Address Claims Phone Policy Number Group Number Relation Employer Guarantor Name Guarantor Guarantor Address Guarantor Phone [facility] [employer] [place] [employer] [address] [address], [place] [address] tel:[phone] Rafael Carrillo [address] [facility] [place] [address] [employer] [address] [address], [place] [address] tel:[phone] [id number] Rafael Carrillo 1940 [id number] [place] [address] [facility] [employer] [place] [employer] [address] [address], [place] [address] tel:[phone] [id number] Rafael Carrillo [address] [facility] [place] [address] Problems Unknown Problems Results No Results Allergies, adverse reactions, alerts Substance Reaction Date Status Type nickel itching/rash 09/30/2023 Drug oxycodone hallucinations 09/30/2023 Drug Medications No administered medications reported Vital Signs Date Vital Result Comment 07/13/2024 Inhaled Oxygen Concentration 21.0 % N Faces Pain Scale 0.0 N Temperature 97 [degF] N Oxygen Saturation 99 % N Respiratory Rate 18 /min N Heart Rate 78 /min N Blood Pressure Systolic 162 mm[Hg] N Blood Pressure Diastolic 107 mm[Hg] N Body Height 63 [in_i] N Body Weight 111.2 [lb_av] N Body Mass Index 19.7 kg/m2 N 07/22/2024 Inhaled Oxygen Concentration 21.0 % N Temperature 97 [degF] N Oxygen Saturation 98 % N Respiratory Rate 18 /min N Heart Rate 90 /min N Blood Pressure Systolic 158 mm[Hg] N Blood Pressure Diastolic 82 mm[Hg] N Body Height 63 [in_i] N Body Weight 115 [lb_av] N Body Mass Index 20.4 kg/m2 N 08/22/2024 Inhaled Oxygen Concentration 21.0 % N Temperature 97 [degF] N Oxygen Saturation 96 % N Respiratory Rate 16 /min N Heart Rate 86 /min N Blood Pressure Systolic 168 mm[Hg] N Blood Pressure Diastolic 107 mm[Hg] N Body Height 63 [in_i] N Social History No smoking Hx information available Functional Status Category Condition Date Problem (Feeding: Independent) Feeding: Independ ent 07/13/2024 Problem (Bathing: Independen t (or in shower)) Bathing: Independent (or in shower) 07/13/2024 Problem (Grooming: Independe nt face/hair/teeth/ shaving (implements provided)) Grooming: Independent face/hair/teeth/ shaving (implements provided) 07/13/2024 Problem (Dressing: Independe nt (including buttons, zips, laces, etc.)) Dressing: Independent (including buttons, zips, laces, etc.) 07/13/2024 Problem (Bowels: Continent) Bowels: Continent Problem (Bladder: Continent) Bladder: Continent 07/13/2024 Problem (Toilet use: Indepen dent (on and off, dressing, wiping)) Toilet use: Independent (on and off, dressing, wiping) 07/13/2024 Problem (Transfers (bed to c hair and back): Independent) Transfers (bed to chair and back): Independent 07/13/2024 Problem (Mobility (on level surfaces): Independent (but may use any aid; for example, stick) >50 yards) Mobility (on level surfaces): Independent (but may use any aid; for example, stick) >50 yards 07/13/2024 Problem (Stairs: Independent) Stairs: Independen t 07/13/2024 Problem (Total score: 100) Total score: 100 07/01
--- OUTSIDE RECORDS SUMMARY | 2024-08-26 18:20 | XMS_ITS | Encounter Summary ---
Author Organization [facility] Address [address] [place] [address] Care Team Providers Care Workday Director Name Role Phone Irwin Vega MD Primary Care Provider Encounter Details Date Type Department Care Team (Late st Contact Info) Description 07/16/2019 Lab Requisition [facility] [address] [place] [id number] [place] [address] Social History Tobacco Use Types Packs/Day Years Used Date Smoking Tobacco: Never Assessed Sex and Gender Information Value Date Recorded Sex Assigned at Not on file Gender Identity Not on file Sexual Orientation Not on file documented as of this encounter Plan of Treatment Not on file documented as of this encounter Procedures Procedure Name Priority Date/Time Associated Diagnosis Comments IMMUNOFLUORESCENT STUDY DERM Routine 07/15/2019 12:00 AM PRINCIPAL ARCHITECT documented in this encounter Results * IMMUNOFLUORESCENT STUDY DERM (07/15/2019 12:00 AM PRINCIPAL ARCHITECT) Case Report Dermatopathol ogy Report Case: [id number] Authorizing Provider: Cisco Salinas MD Collected: 07/15/2019 12:00 AM Ordering Location: [facility] Lab Received: 07/16/2019 01:20 PM Pathologist: Roberto Ly MD Specimen: Skin, right upper back perilesional 0 11:38 AM PRINCIPAL ARCHITECT DERMATOPATHOLOGY LABORATORY Final Diagnosis Specimen A. SKIN, right upper back perilesional: COLLOID BODIES (L98.9) (see microscopic description) (see fixed tissue results [id number]) 0 11:38 AM [facility] DERMATOPATHOLOGY LABORATORY Direct Immunofluorescence Report - Specimen A Specimen A IgA IgM IgG C3 CollV Fibrinogen Epidermis Negative Negative Negative Negative Negative Negative Basement Membrane Negative Negative Negative Negative 2+ Negative Vessels Negative Negative Negative Negative 2+ Negative Interstitium Colloid Colloid Negative Colloid Negative Non specific 0 11:38 AM PRINCIPAL ARCHITECT DERMATOPATHOLOGY LABORATORY Clinical History R/O Dermatitis,ps oriasis,eczem a. 0 11:38 AM PRINCIPAL ARCHITECT DERMATOPATHOLOGY LABORATORY Gross Description Specimen A: Received is one Nirav's media filled container labeled with the patient's name and designated right upper back perilesional. The specimen consists of a punch biopsy measuring [id number]. The specimen is submitted in whole for direct immunofluores cence testing. 0 11:38 AM PRINCIPAL ARCHITECT DERMATOPATHOLOGY LABORATORY Microscopic Description Specimen A. SKIN, [...] See fixed tissue results. 0 11:38 AM PRINCIPAL ARCHITECT DERMATOPATHOLOGY LABORATORY Disclaimer An external and internal positive and negative controls are appropriate for the histochemical , immunohistoch emical and immunofluores cence stain(s) in this case (if any), except where stated explicitly. The performance characteristi cs of the stain(s) cited in this report were developed and its performance characteristi c determined by the Dermatopathol ogy Laboratory at [facility], directed by Dr. Teressa Ly. These tests need not be, and therefore are not, approved by the [place] Food and Drug Administratio n. The tests are used for clinical purposes. Billing Codes Specimen Charges Stain Charges 49788 [id number] 1 1 1 1 1 1 0 11:38 AM [facility] DERMATOPATHOLOGY LABORATORY Embedded Images 0 11:38 AM PRINCIPAL ARCHITECT DERMATOPATHOLOGY LABORATORY Pathology/Cytolog y TISSUE SPECIMEN FROM SKIN / Unknown 07/15/2019 07/16/2019 1:20 PM PRINCIPAL ARCHITECT Cisco Salinas MD LAB - PATHOLOGY/CYTO LOGY ORDERABLES DERMATOPATHOLOGY LABORATORY [facility] - Department of Dermatology [address] [place] [address], [address] Floor Lab [address] [phone] documented in this encounter Visit Diagnoses Not on filedocumented in this encounter Care Teams Workday Director Relationship Specialty Start Date End Date Irwin Vega MD PCP - General 12/21/14 documented as of this encounter
[2024-08-26 18:30] LABS: Alanine Aminotransferase 21 U/L (6-35); Albumin Level 4.3 g/dL (3.5-5.1); Alkaline Phosphatase 91 U/L (38-126); Anion Gap 6 mmol/L (4-12); Aspartate Amino Transferase 53 U/L (14-36); Bilirubin,Total 1.3 mg/dL (0.2-1.3); Blood Urea Nitrogen 14 mg/dL (7-17); Calcium 10.9 mg/dL (8.4-10.2); Carbon Dioxide 31 mmol/L (22-30); Chloride 99 mmol/L (98-107); Estimated CRCL calculation 59 ml/min; Estimated Glomerular Filt Rate > 60; Glucose 111 mg/dL (65-110); Lipase 53 U/L (23-300); Potassium 3.4 mmol/L (3.4-5.0); Sodium 136 mmol/L (137-145)
--- OUTSIDE RECORDS SUMMARY | 2024-08-26 18:41 | XMS_ITS | Clinical Summary ---
Author Organization [facility] Address [address] [place] [address] Care Team Providers Care Microbiological Laboratory Technician Name Role Phone Irwin Vega MD Primary Care Provider [phone] Source Comments [facility],non-owned Affiliates and Associated Physician Practices is amultiple site organization consisting of ambulatory clinics and hospital sitesin [place], [place], [place] and [place]. This disclosure is being madepursuant to the Care Everywhere program and may not contain all information available regarding this patient. Last updated 18.[facility] Social History Tobacco Use Types [...] age to complete this topic Care Teams Microbiological Laboratory Technician Relationship Specialty Start Date End Date Irwin Vega MD PCP - General 12/21/14
--- OUTSIDE RECORDS SUMMARY | 2024-08-26 18:41 | XMS_ITS | Referral Summary ---
Author Organization [facility] Address [address] [place] [address] Care Team Providers Care Site Manager Name Role Phone Irwin Vega MD Primary Care Provider [phone] Source Comments [facility],non-owned Affiliates and Associated Physician Practices is amultiple site organization consisting of ambulatory clinics and hospital sitesin [place], [place], [place] and [place]. This disclosure is being madepursuant to the Care Everywhere program and may not contain all information available regarding this patient. Last updated 18.[facility] Social History Tobacco Use Types Packs/Day Years Used Date Smoking Tobacco: Never Assessed Sex and Gender Information Value Date Recorded Sex Assigned at Not on file Gender Identity Not on file Sexual Orientation Not on file Plan of Treatment Not on file Care Teams Site Manager Relationship Specialty Start Date End Date Irwin Vega MD PCP - General 12/21/14
--- OUTSIDE RECORDS SUMMARY | 2024-08-26 18:41 | XMS_ITS | Continuity of Care Document ---
Author Organization [facility] Address [address] [place] [address] [place] [phone] Phone Care Team Providers Care Climatology Professor Name Role Phone Tomy Alonso Unavailable Unavailable [...] Diagnoses Date Provider Providers Copied on Encounter [address], [id number], tel:[phone] [place] No Information 9- 4 Muehl Tomy. [address] [place] [address], [address], [place], [place], [facility], . tel:[phone] [employer] [address], [place], [id number], [phone] [place] No Information 2 4 Muehl Tomy. [address] [place] [address], [address], [place], [place], [facility], . tel: [phone] Referring Provider: Aibmael Luo [address] [place], [address]. tel:[phone] [facility], [place], [place], [id number], tel:[phone] [place] No Information 0-201 4 Muehl Tomy. [address] [place] [address], [address], [place], [place], [facility], . tel:[phone] Referring Provider: Abimael Luo, [address] [place], [address]. tel:[phone], [place], [place], [id number], tel:[phone] [place] No Information 6-201 4 Muehl Tomy. [address] [place] [address], [address], [place], [place], [facility], . tel: [phone] Referring Provider: Abimael Luo [address] [place], [address]. tel:[phone] [facility], [address] [place] [address], [place], [place], [id number], tel:[phone] [place] No Information 4 Andi Gil. [address], [address], [place], [place], [facility], . tel:[phone] Referring Provider: Abimael Luo, [address] [place], [address]. tel:[phone] [address], [place], [place], [id number], tel:[phone] [place] Pain in joint involving ankle and foot 4 Saige Huitron. [address] [facility], [address], [place], [address], . tel:[phone] Referring Provider: Abimael Luo, [address] [place], [address]. tel:[phone] Family History Family Member Type Diagnosis Age At Onset No Information Payers Payer name Insurance type Covered democrat ID Authoriza tidesmond(s) [place] [id number] [facility] [id number] Social History Type Description Quantity Date Captured [...]
--- OUTSIDE RECORDS SUMMARY | 2024-08-26 18:41 | XMS_ITS | Referral Summary ---
Author Organization [facility] Address [address] [place] [address] Care Team Providers Care Data Entry Operator Name Role Phone Irwin Vega MD Primary Care Provider [phone] Allergies Active Allergy Reactions Criticality Noted Date [...] with home pain meds, Fentanyl patch 75, [place] 7.5/325 Q6, Cymbalta 60 Pre-diabetes 02/12/2018 Assessment [...] drink = 0.6 oz pur e alcohol) [facility] Utilities Answer Date Recorded In the past 12 months has e [employer], gas, oil, or water company threatened to [...] often do you attend chur ch or caodaism services? Never 06/11/2023 Do you belong to any clubs o r organizations such as oriental orthodox groups, unions, fraternal or athletic groups, or [...] place to sleep or slept in a senior living (including now)? No 06/11/2023 Personal Safety Answer Date Recorded Have you ever been in or are you currently in a harmful physical or emotional relationship or is someone making you feel afraid or unsafe? Denies 06/10/2023 Comments No Sex and Gender Information Value Date Recorded Sex Assigned at Not on file Legal Sex Female 1:54 AM PATIENT RELATIONS LIAISON Gender Identity Not on file Sexual Orientation Not on file Last Filed Vital Signs Vital Sign Reading Time Taken Comments Blood Pressure 130/78 10/21/2023 10:08 AM CDT Pulse 80 10/21/2023 10:08 AM CDT Temperature 36.9 C (98.4 F) 06/11/2023 12:19 PM PATIENT RELATIONS LIAISON Respiratory Rate 18 06/11/2023 12:19 PM PATIENT RELATIONS LIAISON Oxygen Saturation 97% 10/21/2023 10:08 AM CDT Inhaled Oxygen Concentration - - Weight 57.6 kg (127 lb) 10/21/2023 10:08 AM CDT Height 157.5 cm (5' 2 ) 10/21/2023 10:08 AM CDT Body Mass Index 23.23 10/21/2023 10:08 AM CDT Plan of Treatment Not on file Medical Devices Implanted Type Area Aircraft Electrician Device Identifier Shelf Expiration Date Model / Serial / Lot Medtronic Inc 8780 Ascenda 4fr .5mm 114cm 86cm 2 Piece Connector Pin Flexible Closed - [id number] Implanted:Qty: 1 on 01/17/2021 by He Sorenson MD at [facility] Left: Back Medtronic Inc 12/05/2022 8780 / / [id number] Medtronic Neuro 8637-20 Synchromed Ii .78in Cerulean Filter Mesh Pouch Programmable - [id number] - [id number] Implanted:Qty: 1 on 01/17/2021 by He Sorenson MD at [facility] Left: Back Medtronic Inc 04/27/2022 8637-20 / [id number] / Cardiva Medical Inc Device Closure Vascade Od5 Fr Femoral Artery [id number] - [id number] Implanted:Qty: 1 on 03/27/2023 by Dimitri Garner MD at [facility] 12/24/2024 700-500DX- 05U / / [id number] [employer] Kit Valve Coronary Aortic Tissue Ramsey 3 Ultra 23mm [id number] - [id number] - [id number] Implanted:Qty: 1 on 06/10/2023 by Dimitri Garner MD at [facility] [employer] 03/05/2026 [id number] / [id number] / Godoy Vascular Device Clsr Perclose Prostyle Sut-Mediatd Closure-Repair Sys 68595-26 - [id number] Implanted:Qty: 1 on 06/10/2023 by Dimitri Garner MD at [facility] 02/28/2025 1 2773-03 / / [id number] [employer]oy Vascular Device Clsr Perclose Prostyle Sut-Mediatd Closure-Repair Sys 31688-19 - [id number] Implanted:Qty: 1 on 06/10/2023 by Dimitri Garner MD at [facility] 01/28/2025 1 2773-03 / / [id number] Cardiva Medical Inc Device Vascular Closure Femoral Artery Bioabsorbable Dual Method Vascade 6-7fr Collagen [id number] - [id number] Implanted:Qty: 1 on 06/10/2023 by Dimitri Garner MD at [facility] Inc 02/07/2025 700-580I-0 5U / / [id number] [id number] Insurance IDMT MEDICARE [employer] MEDICARE SOLUTIONS IDPA Advance Directives For more information, please contact: [phone] Documents on File Type Date Recorded Patient Compounding And Finishing Supervisor Expl anation ADVANCE DIRECTIVE 03/28/2023 6:37 PM [...] 8:05 PM 02/12/2018 10:08 PM Care Teams Data Entry Operator Relationship Specialty Start Date End Date Irwin Vega MD [address] [address] PCP - General 02/08/11
--- OUTSIDE RECORDS SUMMARY | 2024-08-26 18:41 | XMS_ITS | Clinical Summary ---
Author Organization [facility] Address [address] [place] [address] Care Team Providers Care Combat Control Manager Name Role Phone Irwin Vega MD Primary Care Provider [phone] Allergies Active Allergy Reactions Criticality Noted Date [...] with home pain meds, Fentanyl patch 75, [place] 7.5/325 Q6, Cymbalta 60 Pre-diabetes 02/12/2018 Assessment [...] drink = 0.6 oz pur e alcohol) [facility] Utilities Answer Date Recorded In the past 12 months has [place], gas, oil, or water [employer] threatened to shut off services in your [...] week 06/11/2023 How often do you attend [facility] or yarsanism services? Never 06/11/2023 Do you belong to any clubs o r organizations such as orthodox groups, unions, fraternal or athletic groups, [...] place to sleep or slept in a [facility] (including now)? No 06/11/2023 Personal Safety Answer Date Recorded Have you ever been in or are you currently in a harmful physical or emotional relationship or is someone making you feel afraid or unsafe? Denies 06/10/2023 Comments No Sex and Gender Information Value Date Recorded Sex Assigned at Not on file Legal Sex Female 1:54 AM COOK MORNING Gender Identity Not on file Sexual Orientation Not on file Obstetrics History Last Filed Vital Signs Vital Sign Reading Time Taken Comments Blood Pressure 130/78 10/21/2023 10:08 AM CDT Pulse 80 10/21/2023 10:08 AM CDT Temperature 36.9 C (98.4 F) 06/11/2023 12:19 PM COOK MORNING Respiratory Rate 18 06/11/2023 12:19 PM COOK MORNING Oxygen Saturation 97% 10/21/2023 10:08 AM CDT [...] 12/31, 07/15/2013 Medical Devices Implanted Type Area Ice Cream Machine Operator Device Identifier Shelf Expiration Date Model / Serial / Lot Medtronic Inc 8780 Ascenda 4fr .5mm 114cm 86cm 2 Piece Connector Pin Flexible Closed - [id number] Implanted:Qty: 1 on 01/17/2021 by He Sorenson MD at [facility] Left: Back Medtronic Inc 12/05/2022 8780 / / [id number] Medtronic Neuro 8637-20 Synchromed Ii .78in [place] Filter Mesh Pouch Programmable - [id number] - [id number] Implanted:Qty: 1 on 01/17/2021 by He Sorenson MD at [facility] Left: Back Medtronic Inc 04/27/2022 8637-20 / [id number] / Cardiva Medical Inc Device Closure Vascade Od5 Fr Femoral Artery [id number] - [id number] Implanted:Qty: 1 on 03/27/2023 by Dimitri Garner MD at [facility] [employer] Inc 12/24/2024 700-500DX- 05U / / [id number] [employer] Kit Valve Coronary Aortic Tissue Ramsey 3 Ultra 23mm [id number] - [id number] - [id number] Implanted:Qty: 1 on 06/10/2023 by Dimitri Garner MD at [facility] [employer] 03/05/2026 [id number] / [id number] / Godoy Vascular Device Clsr Perclose Prostyle Sut-Mediatd Closure-Repair Sys 14432-14 - [id number] Implanted:Qty: 1 on 06/10/2023 by Dimitri Garner MD at [facility] [employer] 02/28/2025 1 2773-03 / / [id number] [employer]oy Vascular Device Clsr Perclose Prostyle Sut-Mediatd Closure-Repair Sys 83009-83 - [id number] Implanted:Qty: 1 on 06/10/2023 by Dimitri Garner MD at [facility] [employer] 01/28/2025 1 2773-03 / / [id number] Cardima Medical [facility] Device Vascular Closure Femoral Artery Bioabsorbable Dual Method Vascade 6-7fr Collagen [id number] - [id number] Implanted:Qty: 1 on 06/10/2023 by Dimitri Garner MD at [facility] Inc 02/07/2025 700-580I-0 5U / / [id number] [id number] Insurance MEDICARE SOLUTIONS IDPA IDPA Member Subscriber Plan / Payer (Ef fective 2023-Present) Name:Maday Barlow Relation to Subscriber:Self Name:Maday Barlow Payer ID:[id number] Group ID:Not on file Type:MEDICAID [place] Address: [place] [id number] MEDICARE SOLUTIONS IDPA Advance Directives For more information, please contact: [phone] Documents on File Type Date Recorded Patient Helper Marble Finisher Expl anation ADVANCE DIRECTIVE 03/28/2023 6:37 PM [...] 8:05 PM 02/12/2018 10:08 PM Care Teams Combat Control Manager Relationship Specialty Start Date End Date Irwin Vega MD [address] [address] PCP - General 02/08/11
--- OUTSIDE RECORDS SUMMARY | 2024-08-26 18:41 | XMS_ITS | Encounter Summary ---
Author Organization [facility] Address [address] [place] [address] Care Team Providers Care Oven Builder Name Role Phone Irwin Vega MD Primary Care Provider [phone] Encounter Details Date Type Department Care Team (Late st Contact Info) Description 07/16/2019 Lab Requisition [facility] DermPath Lab [address] [place] [id number] [place] [address] Social History Tobacco Use Types [...] Comments DERMATOPATHOLOGY Routine 07/15/2019 12:0 0 AM TUMOR REGISTRAR documented in this encounter Results * DERMATOPATHOLOGY (07/15/2019 12:00 AM TUMOR REGISTRAR) Case Report Dermatopathology Report Case: [id number] Authorizing Provider: Cisco Salinas MD Collected: 07/15/2019 12:00 AM Ordering Location: [facility] DermPath Lab Received: 07/16/2019 01:19 PM Pathologist: Roberto Ly MD Specimens: A) - Skin, left medial ankle B) - Skin, right upper back 0 11:37 AM TUMOR REGISTRAR DERMATOPATHOLOGY LABORATORY Final Diagnosis Specimen A. 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 0 11:37 AM [facility] DERMATOPATHOLOGY LABORATORY Gross Description Specimen A: Received is one formalin filled container labeled with the patient's name and designated left medial ankle. The specimen consists of a shave biopsy measuring 9r5k6cp. Jar 0. Specimen B: Received is one formalin filled container labeled with the patient's name and designated right upper back. The specimen consists of a punch biopsy measuring 2l2m9no bisected. Jar 0. 0 11:37 AM [facility] DERMATOPATHOLOGY LABORATORY Microscopic Description Specimen A. SKIN, [...] See direct immunofluorescence results. 0 11:37 AM [facility] DERMATOPATHOLOGY LABORATORY Disclaimer An external and internal positive and negative controls are appropriate for the histochemical, immunohistochemical and immunofluorescence stain(s) in this case (if any), except where stated explicitly. The performance characteristics of the stain(s) cited in this report were developed and its performance characteristic determined by the Dermatopathology Laboratory at [facility], directed by Dr. Teressa Ly. These tests need not be, and therefore are not, approved by the [place] Food and Drug Administration. The tests are used for clinical purposes. Billing Codes Specimen Charges Stain Charges 64021 13815 1 1 0 11:37 AM TUMOR REGISTRAR DERMATOPATHOLOGY LABORATORY Embedded Images 0 11:37 AM TUMOR REGISTRAR DERMATOPATHOLOGY LABORATORY Pathology/Cytology TISSUE SPECIMEN FROM SKIN / Unknown 07/15/2019 07/16/2019 1:19 PM TUMOR REGISTRAR Miscellaneous samples (specimen) TISSUE SPECIMEN FROM SKIN / Unknown 07/15/2019 07/16/2019 1:19 PM TUMOR REGISTRAR Cisco Salinas MD LAB - PATHOLOGY/CYTO LOGY ORDERABLES DERMATOPATHOLOGY LABORATORY [facility] - Department of Dermatology [address] [place] [address] 5th Floor Lab [address] [phone] documented in this encounter Visit Diagnoses Not on filedocumented in this encounter Care Teams Oven Builder Relationship Specialty Start Date End Date Irwin Vega MD PCP - General 12/21/14 documented as of this encounter
--- OUTSIDE RECORDS SUMMARY | 2024-08-26 18:41 | XMS_ITS | Patient Health Summary ---
Author Organization [facility] Address [address] [place] [address] Care Team Providers Care Rf Test Engineer Name Role Phone Irwin Vega MD Primary Care Provider [phone] Note from [facility],non-owned Affiliates and Associated Physician Practices is amultiple site organization consisting of ambulatory clinics and hospital sitesin [place], [place], [place] and [place]. This disclosure is being madepursuant to the Care Everywhere program and may not contain all information available regarding this patient. Last updated 18.[facility] Social History Tobacco Use Types Packs/Day Years Used Date Smoking Tobacco: Never Assessed Sex and Gender Information Value Date Recorded Sex Assigned at Not on file Gender Identity Not on file Sexual Orientation Not on file Procedures * IMMUNOFLUORESCENT STUDY DERM(Performed 07/15/2019) * DERMATOPATHOLOGY(Performed 07/15/2019) * DERMATOPATHOLOGY(Performed 01/29/2018) Results * IMMUNOFLUORESCENT STUDY DERM (07/15/2019 12:00 AM INDEPENDENT FREIGHT AGENT) Case Report Dermatopathol ogy Report Case: [id number] Authorizing Provider: Cisco Salinas MD Collected: 07/15/2019 12:00 AM Ordering Location: [facility] DermPath Lab Received: 07/16/2019 01:20 PM Pathologist: Roberto Ly MD Specimen: Skin, right upper back perilesional 0 11:38 AM [facility] DERMATOPATHOLOGY LABORATORY Final Diagnosis Specimen A. SKIN, right upper back perilesional: COLLOID BODIES (L98.9) (see microscopic description) (see fixed tissue results [id number]) 0 11:38 AM [facility] DERMATOPATHOLOGY LABORATORY Direct Immunofluorescence Report - Specimen A Specimen A IgA IgM IgG C3 CollV Fibrinogen Epidermis Negative Negative Negative Negative Negative Negative Basement Membrane Negative Negative Negative Negative 2+ Negative Vessels Negative Negative Negative Negative 2+ Negative Interstitium Colloid Colloid Negative Colloid Negative Non specific 0 11:38 AM [facility] DERMATOPATHOLOGY LABORATORY Clinical History R/O Dermatitis,ps oriasis,eczem a. 0 11:38 AM [facility] DERMATOPATHOLOGY LABORATORY Gross Description Specimen A: Received is one Nirav's media filled container labeled with the patient's name and designated right upper back perilesional. The specimen consists of a punch biopsy measuring 1z6m8zy. The specimen is submitted in whole for direct immunofluores cence testing. 0 11:38 AM INDEPENDENT FREIGHT AGENT DERMATOPATHOLOGY LABORATORY Microscopic Description Specimen A. SKIN, [...] See fixed tissue results. 0 11:38 AM INDEPENDENT FREIGHT AGENT DERMATOPATHOLOGY LABORATORY Disclaimer An external and internal positive and negative controls are appropriate for the histochemical , immunohistoch emical and immunofluores cence stain(s) in this case (if any), except where stated explicitly. The performance characteristi cs of the stain(s) cited in this report were developed and its performance characteristi c determined by the Dermatopathol ogy Laboratory at [facility], directed by Dr. Teressa Ly. These tests need not be, and therefore are not, approved by the [place] Food and Drug Administratio n. The tests are used for clinical purposes. Billing Codes Specimen Charges Stain Charges 18183 27154 23438 40210 01977 68193 1 1 1 1 1 1 0 11:38 AM [facility] DERMATOPATHOLOGY LABORATORY Embedded Images 0 11:38 AM [facility] DERMATOPATHOLOGY LABORATORY Pathology/Cytolog y TISSUE SPECIMEN FROM SKIN / Unknown 07/15/2019 07/16/2019 1:20 PM INDEPENDENT FREIGHT AGENT Cisco Salinas MD LAB - PATHOLOGY/CYTO LOGY ORDERABLES DERMATOPATHOLOGY LABORATORY [facility] - Department of Dermatology [address], 5th [place] [address], [facility] [phone] * DERMATOPATHOLOGY (07/15/2019 12:00 AM INDEPENDENT FREIGHT AGENT) Only the most recent of2 resultswithin the time period is included. Case Report Dermatopathology Report Case: [id number] Authorizing Provider: Cisco Salinas MD Collected: 07/15/2019 12:00 AM Ordering Location: [facility] DermPath Lab Received: 07/16/2019 01:19 PM Pathologist: Roberto Ly MD Specimens: A) - Skin, left medial ankle B) - Skin, right upper back 0 11:37 AM [facility] DERMATOPATHOLOGY LABORATORY Final Diagnosis Specimen A. 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 SKIN, right upper back: URTICARIA, CONSISTENT WITH (L50.9) (see direct immunofluorescence results [id number]) 0 11:37 AM [facility] DERMATOPATHOLOGY LABORATORY Clinical History A-B: R/O Dermatitis, psoriasis, eczema. 0 11:37 AM [facility] DERMATOPATHOLOGY LABORATORY Gross Description Specimen A: Received is one formalin filled container labeled with the patient's name and designated left medial ankle. The specimen consists of a shave biopsy measuring 1l7k4pj. Jar 0. Specimen B: Received is one formalin filled container labeled with the patient's name and designated right upper back. The specimen consists of a punch biopsy measuring 4m8v0xu bisected. Jar 0. 0 11:37 AM [facility] DERMATOPATHOLOGY LABORATORY Microscopic Description Specimen A. [...] See direct immunofluorescence results. 0 11:37 AM [facility] DERMATOPATHOLOGY LABORATORY Disclaimer An external and internal positive and negative controls are appropriate for the histochemical, immunohistochemical and immunofluorescence stain(s) in this case (if any), except where stated explicitly. The performance characteristics of the stain(s) cited in this report were developed and its performance characteristic determined by the Dermatopathology Laboratory at [facility], directed by Dr. Teressa Ly. These tests need not be, and therefore are not, approved by the [place] Food and Drug Administration. The tests are used for clinical purposes. Billing Codes Specimen Charges Stain Charges 92166 29376 1 1 0 11:37 AM INDEPENDENT FREIGHT AGENT DERMATOPATHOLOGY LABORATORY Embedded Images 0 11:37 AM [facility] DERMATOPATHOLOGY LABORATORY Pathology/Cytology TISSUE SPECIMEN FROM SKIN / Unknown 07/15/2019 07/16/2019 1:19 PM INDEPENDENT FREIGHT AGENT Miscellaneous samples (specimen) TISSUE SPECIMEN FROM SKIN / Unknown 07/15/2019 07/16/2019 1:19 PM INDEPENDENT FREIGHT AGENT Cisco Salinas MD LAB - PATHOLOGY/CYTO LOGY ORDERABLES DERMATOPATHOLOGY LABORATORY [facility] - Department of Dermatology [facility] 5th Floor Lab [address] [phone] Care Teams Rf Test Engineer Relationship Specialty Start Date End Date Irwin Vega MD PCP - General 12/21/14
--- OUTSIDE RECORDS SUMMARY | 2024-08-26 18:41 | XMS_ITS | Encounter Summary ---
Author Organization [facility] Address [address] [place] [address] Care Team Providers Care Printed Circuit Board Assembler Name Role Phone Irwin Vega MD Primary Care Provider [phone] Encounter Details Date Type Department Care Team (Late st Contact Info) Description 01/30/2018 Lab Requisition [facility] [address] [place] [address] Cisco [place] [address] Social History Tobacco Use Types [...] AM CDT) Case Report Dermatopathology Report Case: [id number] Authorizing Provider: Cisco Salinas MD Collected: 01/29/2018 [...] characteristic determined by the Dermatopathology Laboratory at [facility]. These tests need not be, and therefore are not, approved by the [place] Food and Drug Administration. The tests are used for clinical purposes. Billing Codes Specimen Charges Stain Charges 84143 1 3:42 PM CDT DERMATOPATHOLOGY LABORATORY Embedded Images 3:42 PM CDT DERMATOPATHOLOGY LABORATORY Pathology/Cytolog y TISSUE SPECIMEN FROM SKIN / Unknown 01/29/2018 01/30/2018 11:31 AM CDT Cisco Salinas MD LAB - PATHOLOGY/CYTO LOGY ORDERABLES DERMATOPATHOLOGY LABORATORY [facility] - Department of Dermatology [address], 5th [place] [address], [facility] [phone] documented in this encounter Visit Diagnoses Not on filedocumented in this encounter Care Teams Printed Circuit Board Assembler Relationship Specialty Start Date End Date Irwin Vega MD PCP - General 12/21/14 documented as of this encounter
--- OUTSIDE RECORDS SUMMARY | 2024-08-26 18:41 | XMS_ITS | Encounter Summary ---
Author Organization [facility] Address [address] [place] [address] Care Team Providers Care Driver Manager Name Role Phone Irwin Vega MD Primary Care Provider [phone] Encounter Details Date Type Department Care Team (Late st Contact Info) Description 07/16/2019 Lab Requisition [facility] [address] [facility] [place] [id number] Cisco [place] [address] Social History Tobacco Use Types [...] IMMUNOFLUORESCENT STUDY DERM Routine 07/15/2019 12:00 AM MANAGER OF INTERNAL documented in this encounter Results * IMMUNOFLUORESCENT STUDY DERM (07/15/2019 12:00 AM MANAGER OF INTERNAL) Case Report Dermatopathol ogy Report Case: [id number] Authorizing Provider: Cisco Salinas MD Collected: 07/15/2019 12:00 AM Ordering Location: [facility] Received: 07/16/2019 01:20 PM Pathologist: Roberto Ly MD Specimen: Skin, right upper back perilesional 0 11:38 AM MANAGER OF INTERNAL DERMATOPATHOLOGY LABORATORY Final Diagnosis Specimen A. SKIN, right upper back perilesional: COLLOID BODIES (L98.9) (see microscopic description) (see fixed tissue results [id number]) 0 11:38 AM [facility] DERMATOPATHOLOGY LABORATORY Direct Immunofluorescence Report - Specimen A Specimen A IgA IgM IgG C3 CollV Fibrinogen Epidermis Negative Negative Negative Negative Negative Negative Basement Membrane Negative Negative Negative Negative 2+ Negative Vessels Negative Negative Negative Negative 2+ Negative Interstitium Colloid Colloid Negative Colloid Negative Non specific 0 11:38 AM MANAGER OF INTERNAL DERMATOPATHOLOGY LABORATORY Clinical History R/O Dermatitis,ps oriasis,eczem a. 0 11:38 AM MANAGER OF INTERNAL DERMATOPATHOLOGY LABORATORY Gross Description Specimen A: Received is one Nirav's media filled container labeled with the patient's name and designated right upper back perilesional. The specimen consists of a punch biopsy measuring [id number]. The specimen is submitted in whole for direct immunofluores cence testing. 0 11:38 AM MANAGER OF INTERNAL DERMATOPATHOLOGY LABORATORY Microscopic Description Specimen A. SKIN, [...] See fixed tissue results. 0 11:38 AM MANAGER OF INTERNAL DERMATOPATHOLOGY LABORATORY Disclaimer An external and internal positive and negative controls are appropriate for the histochemical , immunohistoch emical and immunofluores cence stain(s) in this case (if any), except where stated explicitly. The performance characteristi cs of the stain(s) cited in this report were developed and its performance characteristi c determined by the Dermatopathol ogy Laboratory at [facility], directed by Dr. Teressa Ly. These tests need not be, and therefore are not, approved by the [place] Food and Drug Administratio n. The tests are used for clinical purposes. Billing Codes Specimen Charges Stain Charges 21145 63745 57794 87846 91094 91558 1 1 1 1 1 1 0 11:38 AM [facility] DERMATOPATHOLOGY LABORATORY Embedded Images 0 11:38 AM MANAGER OF INTERNAL DERMATOPATHOLOGY LABORATORY Pathology/Cytolog y TISSUE SPECIMEN FROM SKIN / Unknown 07/15/2019 07/16/2019 1:20 PM MANAGER OF INTERNAL Cisco Salinas MD LAB - PATHOLOGY/CYTO LOGY ORDERABLES DERMATOPATHOLOGY LABORATORY [facility] - Department of Dermatology [address] [place] [address], 5[address] Floor Lab [address] [phone] documented in this encounter Visit Diagnoses Not on filedocumented in this encounter Care Teams Driver Manager Relationship Specialty Start Date End Date Irwin Vega MD PCP - General 12/21/14 documented as of this encounter
[2024-08-26 18:46] LABS: Troponin I 0.044 ng/mL (0.000-0.034)
== END 2024-08-26 19:32 | disposition left against medical advice (07) ==
PROVIDERS: Emergency Provider Emergency Medicine; PCP Family Medicine
DX: I48.91 Unspecified atrial fibrillation (principal); Z79.01 Long term (current) use of anticoagulants; E03.9 Hypothyroidism, unspecified; E11.42 Type 2 diabetes mellitus with diabetic polyneuropathy; E11.319 Type 2 diabetes mellitus with unspecified diabetic retinopathy without macular edema; Z96.653 Presence of artificial knee joint, bilateral; Z87.891 Personal history of nicotine dependence
CPT/HCPCS: 36415; 71046; 80053; 83690; 84484; 85025; 85610; 85730; 93005; 96374; 99284

== ENCOUNTER 2024-11-26 12:33 | Emergency (ER) | payer MEDICARE, MEDICAID, SELFPAY ==
[2024-11-26] VITALS (7 sets, daily range): BP systolic 115–142; BP diastolic 66–89; PULSE 93–120; RESP 16–20; TEMP 36.4–36.8; O2SAT 95–100
--- NOTE | ~2024-11-26 | CT_ITS ---
History: Fall PROCEDURE: CT head without contrast. COMPARISON: 05/02/2021 TECHNIQUE: Axial imaging of the head performed from the skull base to the vertex without IV contrast. Sagittal a nd coronal reformations obtained. DLP: 681 mGy-cm FINDINGS: The ventricles are enlarged. The dilatation of the ventricles is proportional to the degree of sulcal prominence, not uncommon in the senescent brain. Decreased attenuation is identified within the periventricular white matter, likely secondary to micr ovascular ischemic disease, in a patient of this age. There is no mass, mass effect or midline shift. There is no abnormal extra-axial fluid collection or intracranial hemorrhage. Visualized paranasal sinuses are clear. The mastoid air cells are well aerated. No acute displaced fractures within the overlying cranium. Impression: No acute intracranial hemorrhage or suspicious mass effect. Reviewed, dictated and finalized at location A. Impression: No acute intracranial hemorrhage or suspicious mass effect.
--- NOTE | ~2024-11-26 | CT_ITS ---
EXAMINATION: CT cervical spine wo con DATE: 11/26/2024 16:20 INDICATION: Fall TECHNIQUE: Computed tomography (CT) of the cervical spine was performed without intravenous contrast. Automated exposure control and iterative reconstruction technique were employed. The dose-length pro duct was 138.31 mGy-cm. COMPARISON: None FINDINGS: No acute fractures identified. There is solid anterior fusion across the disc spaces from C3 3-T1. Th ere is also fusion across the bilateral uncovertebral joints and anterior margin of the C2-C3 disc sp antonietta. C2-C7 laminectomies. There is solid T1 posterior spinal fusion with bilateral vertical emeterio and s crew fixation extending from C3 through T1 along with a cerclage wire fusion from the inferior margin of the T1 spinous process through the posterior elements at C3. 4 mm anterolisthesis T1 on T2 with m oderate disc height loss and moderate bilateral facet osteoarthritis at this level. Additional anteri or and posterior spinal fusion at T2-T4. Severe osteoarthritis at the atlantoaxial articulation with prominent surrounding calcified pannus formation which mildly narrows the central canal at the level of the ring of C1. No central canal stenosis and more caudal cervical and upper thoracic spine. There is multilevel mild bilateral cervical neural foraminal stenosis. Moderate osteoarthritis at the bila teral sternoclavicular joints. Cervical soft tissues are unremarkable. Visualized apices of lungs are clear. IMPRESSION: 1. C2-T1 anterior and instrumented posterior spinal fusion. No acute osseous abnormality. 2. 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 3. Additional anterior and posterior spinal fusion of T2-T4 with 4 mm anterolisthesis of T1 on T2 wit h moderate associated spondylosis at this level. Reviewed, dictated and finalized at location A. IMPRESSION: 1. C2-T1 anterior and instrumented posterior spinal fusion. No acute osseous ab normality. 2. Severe atlantoaxial osteoarthritis with surrounding calcified pannus contrib alturas to mild central canal stenosis at the level of the ring of C1. 3. Additional anterior and posterior spinal fusion of T2-T4 with 4 mm anterolis thesis of T1 on T2 with moderate associated spondylosis at this level.
--- NOTE | ~2024-11-26 | US_ITS ---
EXAMINATION: US venous doppler [facility] DATE: 11/26/2024 16:55 INDICATION: Lower limb swelling TECHNIQUE: Grayscale ultrasound images without and with compression and Doppler ultrasound images of the bilateral lower extremity veins were obtained. COMPARISON: None. FINDINGS: The visualized portions of right common femoral vein, profunda (deep) femoral vein, femoral vein, pop liteal vein, posterior tibial veins, peroneal veins, gastrocnemius vein and proximal to mid greater s aphenous vein are patent. The visualized portions of left common femoral vein, profunda femoral vein, femoral vein, popliteal v ein, posterior tibial veins, peroneal veins, gastrocnemius vein and proximal multiple mid greater sap henous vein are patent. IMPRESSION: 1. No deep venous thrombosis in either lower limb. Reviewed, dictated and finalized at location A.
--- NOTE | ~2024-11-26 | XR_ITS ---
XR chest 1V 11/26/2024 16:54 Indication: Dizziness. Lower extremity edema. Procedure: AP view of the chest Comparison: 08/26/2024 Findings: Cardiomegaly. There is prosthetic heart valve. No focal air space disease, pulmonary edema, pleural effusion or suspected pneumothorax. There is basilar atelectasis. No acute osseous abnormali ty. Generalized osteopenia. There are fusion changes of the cervical spine. Impression: 1: Bibasilar atelectasis. 2: Cardiomegaly. Reviewed, dictated and finalized at location A. Impression: 1: Bibasilar atelectasis. 2: Cardiomegaly.
--- OUTSIDE RECORDS SUMMARY | 2024-11-26 12:37 | XMS_ITS | Encounter Summary ---
Author Organization [facility] Address [address] [place] [address] Care Team Providers Care Bicycle Service Technician Name Role Phone Irwin Vega MD Primary Care Provider [phone] Encounter Details Date Type Department Care Team (Late st Contact Info) Description 01/30/2018 Lab Requisition [facility] [address] [facility] [place] [address] Cisco Salinas MD [address] [place] [address] Social History Tobacco Use Types Packs/Day Years Used Date Smoking Tobacco: Never Assessed Comments Unknown Sex and Gender Information Value Date Recorded Sex Assigned at Not on file Legal Sex Female 7:26 PM WEIR FISHERMAN Gender Identity Not on file Sexual Orientation Not on file documented as of this encounter Plan of Treatment Not on file documented as of this encounter Procedures Procedure Name Priority Date/Time Associated Diagnosis Comments DERMATOPATHOLOGY Routine 01/29/2018 12:0 0 AM CDT documented in this encounter Results * DERMATOPATHOLOGY (01/29/2018 12:00 AM CDT) Case Report Dermatopathology Report Case: [id number] Authorizing Provider: Cisco Salinas MD Collected: 01/29/2018 12:00 AM Pathologist: Chelsey Gama MD Received: 01/30/2018 11:31 AM Specimen: Skin, left pretibia 8 3:42 PM CDT DERMATOPATHOLOGY LABORATORY Final Diagnosis Specimen A. 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 3:42 PM CDT DERMATOPATHOLOGY LABORATORY Disclaimer An external and internal positive and negative controls are appropriate for the histochemical, immunohistochemical and immunofluorescence stain(s) in this case (if any), except where stated explicitly. The performance characteristics of the stain(s) cited in this report were developed and its performance characteristic determined by the Dermatopathology Laboratory at [facility]. These tests need not be, and therefore are not, approved by the [place] Food and Drug Administration. The tests are used for clinical purposes. Billing Codes Specimen Charges Stain Charges 64608 1 3:42 PM CDT DERMATOPATHOLOGY LABORATORY Embedded Images 3:42 PM CDT DERMATOPATHOLOGY LABORATORY Pathology/Cytolog y TISSUE SPECIMEN FROM SKIN / Unknown 01/29/2018 01/30/2018 11:31 AM CDT us Cisco Salinas MD LAB - PATHOLOGY/CYTOLOGY ORD ERABLES Final Result DERMATOPATHOLOGY LABORATORY [facility] - Department of Dermatology [address] [place] [address], 5th [place] [address], [facility] [phone] documented in this encounter Visit Diagnoses Not on filedocumented in this encounter Care Teams Bicycle Service Technician Relationship Specialty Start Date End Date Irwin Vega MD PCP - General 12/21/14 documented as of this encounter
--- OUTSIDE RECORDS SUMMARY | 2024-11-26 12:37 | XMS_ITS | Referral Summary ---
Author Organization [facility] Address [address] [place] [address] Care Team Providers Care Hull Outfit Supervisor Name Role Phone Irwin Vega MD Primary Care Provider [phone] Allergies Active Allergy Reactions Criticality Noted Date [...] by mouth daily 30 tablet 11 4 Active aspirin 81 mg enteric coated tablet Take 1 tablet (81 mg total) by mouth daily 30 tablet 11 4 Active furosemide (LASIX) 20 mg tabletIndications :Bilateral lower extremity edema TAKE 1 TABLET BY MOUTH DAILY NEEDED FOR LOWER EXTREMITY EDEMA 100 tablet 2 4 Active Eliquis 2.5 mg tabletIndications :Persistent atrial fibrillation (HCC) TAKE 1 TABLET BY MOUTH EVERY MORNING AND EVERY EVENING 60 tablet 11 5 Active Active Problems Problem Noted Date Diagnosed [...] with home pain meds, Fentanyl patch 75, [place] 7.5/325 Q6, Cymbalta 60 Pre-diabetes 02/12/2018 Assessment [...] Tobacco: Former Cigarettes 2 30 1 968 - 1997 Smokeless Tobacco: Never Alcohol Use Standard Drinks/Week Comments No 0 (1 standard drink = 0.6 oz pur e alcohol) [facility] Utilities Answer Date Recorded In the past 12 months has th e electric, gas, oil, or water company threatened to [...] often do you attend chur ch or yarsanism services? Never 06/11/2023 Do you [...] place to sleep or slept in a correction (including now)? No 06/11/2023 Personal Safety Answer Date Recorded Have you ever been in or are you currently in a harmful physical or emotional relationship or is someone making you feel afraid or unsafe? Denies 06/10/2023 Comments No Sex and Gender Information Value Date Recorded Sex Assigned at Not on file Legal Sex Female 1:54 AM EMBROIDERER Gender Identity Not on file Sexual Orientation Not on file Last Filed Vital Signs Vital Sign Reading Time Taken Comments Blood Pressure 130/78 10/21/2023 10:08 AM CDT Pulse 80 10/21/2023 10:08 AM CDT Temperature 36.9 C (98.4 F) 06/11/2023 12:19 PM EMBROIDERER Respiratory Rate 18 06/11/2023 12:19 PM EMBROIDERER Oxygen Saturation 97% 10/21/2023 10:08 AM CDT Inhaled Oxygen Concentration - - Weight 57.6 kg (127 lb) 10/21/2023 10:08 AM CDT Height 157.5 cm (5' 2) 10/21/2023 10:08 AM CDT Body Mass Index 23.23 10/21/2023 10:08 AM CDT Plan of Treatment Not on file Medical Devices Implanted Type Area Marketing Manager Device Identifier Shelf Expiration Date Model / Serial / Lot Medtronic Inc 8780 Ascenda 4fr .5mm 114cm 86cm 2 Piece Connector Pin Flexible Closed - [id number] Implanted:Qty: 1 on 01/17/2021 by He Sorenson MD at [facility] Left: Back Medtronic Inc 12/05/2022 8780 / / [id number] Medtronic Neuro 8637-20 Synchromed Ii .78in Hugoton Filter Mesh Pouch Programmable - [id number] - [id number] Implanted:Qty: 1 on 01/17/2021 by He Sorenson MD at [facility] Left: Back Medtronic Inc 04/27/2022 8637-20 / [id number] / Cardiva Medical Inc Device Closure Vascade Od5 Fr Femoral Artery [id number] - [id number] Implanted:Qty: 1 on 03/27/2023 by Dimitri Garner MD at [facility] Medical Inc 12/24/2024 700-500DX- 05U / / [id number] [employer]iences Kit Valve Coronary Aortic Tissue Ramsey 3 Ultra 23mm [id number] - [id number] - [id number] Implanted:Qty: 1 on 06/10/2023 by Dimitri Garner MD at [facility] [employer] 03/05/2026 [id number] / [id number] / Godoy V[employer] Device Clsr Perclose Prostyle Sut-Mediatd Closure-Repair Sys 60901-01 - [id number] Implanted:Qty: 1 on 06/10/2023 by Dimitri Garner MD at [facility] [employer] 02/28/2025 1 2773-03 / / [id number] [employer]oy V[employer] Device Clsr Perclose Prostyle Sut-Mediatd Closure-Repair Sys 44163-58 - [id number] Implanted:Qty: 1 on 06/10/2023 by Dimitri Garner MD at [facility] [employer] 01/28/2025 1 2773-03 / / [id number] Cardiva Medical Inc Device Vascular Closure Femoral Artery Bioabsorbable Dual Method Vascade 6-7fr Collagen [id number] - [id number] Implanted:Qty: 1 on 06/10/2023 by Dimitri Garner MD at [facility] Medical Inc 02/07/2025 700-580I-0 5U / / [id number] Insurance [facility] MEDICARE ADVANTAGE [place] [id number] IDPA [facility] MEDICARE ADVANTAGE [facility] MEDICARE ADVANTAGE IDPA Advance Directives For more information, please contact: [phone] Documents on File Type Date Recorded Patient Marketing Support Manager Expl anation ADVANCE DIRECTIVE 03/28/2023 6:37 PM [...] 8:05 PM 02/12/2018 10:08 PM Care Teams Hull Outfit Supervisor Relationship Specialty Start Date End Date Irwin Vega MD [address] [address] PCP - General 02/08/11
--- OUTSIDE RECORDS SUMMARY | 2024-11-26 12:37 | XMS_ITS | Clinical Summary ---
Author Organization [facility] Address [address] [place] [address] Care Team Providers Care Grain Combine Driver Name Role Phone Irwin Vega MD Primary Care Provider [phone] Allergies Active Allergy Reactions Criticality Noted Date [...] with home pain meds, Fentanyl patch 75, [place] 7.5/325 Q6, Cymbalta 60 Pre-diabetes 02/12/2018 Assessment [...] REPLACEMENT ricarda knees OTHER SURGICAL HISTORY 01/17/2021 [employer] pain pum pimplanted ROTATOR CUFF REPAIR Right Medical History Medical History Date Comments Cataract Glaucoma Hyperlipidemia DVT (deep venous thrombosis) (HCC) unclear history, not on AC Hypertension Heart murmur GERD (gastroesophageal reflux disease) Depression Squamous cell carcinoma in s itu (SCCIS) of skin of lower leg Arthritis Osteoporosis Type 2 diabetes mellitus (HCC) Anxiety Anemia Cancer (HCC) skin cancer Family History Medical History Relation Name Comments [...] drink = 0.6 oz pur e alcohol) [facility] Utilities Answer Date Recorded In the [...] often do you attend chur ch or yazidism services? Never 06/11/2023 Do you belong to any clubs o r organizations such as yazidi groups, unions, fraternal or athletic groups, or [...] on file Legal Sex Female 1:54 AM INSTRUCTIONAL SERVICES SPECIALIST Gender Identity Not on file Sexual Orientation Not on file Obstetrics History Last Filed Vital Signs Vital Sign Reading Time Taken Comments Blood Pressure 130/78 10/21/2023 10:08 AM CDT Pulse 80 10/21/2023 10:08 AM CDT Temperature 36.9 C (98.4 F) 06/11/2023 12:19 PM INSTRUCTIONAL SERVICES SPECIALIST Respiratory Rate 18 06/11/2023 12:19 PM INSTRUCTIONAL SERVICES SPECIALIST Oxygen Saturation 97% 10/21/2023 10:08 AM CDT [...] Screening 03/06/2019 03/06/2018, 03/06/20 18 Covid-19 Vaccine (4 - 2023-2 5 season) 2024 05/17/2021, 10/10/2020, 09/19/2020 Fall Risk Assessment 06/11/2024 06/11/2023 Influenza Vaccine (Season Ended) 2025 04/21/2020, 03/04/2018, 06/13/2016, Additional history exists DTaP/Tdap/Td Vaccine (2 - Td or Tdap) 11/07/2030 11/07/2020 Pneumococcal vaccine 65+ Completed 03/04/2018, 05/31 Zoster Vaccine Completed 04/21/2020, 12/31, 07/15/2013 Medical Devices Implanted Type Area Research Chemical Engineer Device Identifier Shelf Expiration Date Model / Serial / Lot Medtronic Inc 8780 Ascenda 4fr .5mm 114cm 86cm 2 Piece Connector Pin Flexible Closed - [id number] Implanted:Qty: 1 on 01/17/2021 by He Sorenson MD at [facility] Left: Back Medtronic Inc 12/05/2022 8780 / / [id number] Medtronic Neuro 8637-20 Synchromed Ii .78in [place] Filter Mesh Pouch Programmable - [id number] - [id number] Implanted:Qty: 1 on 01/17/2021 by He Sorenson MD at [facility] Left: Back Medtronic Inc 04/27/2022 8637-20 / [id number] / Cardiva Medical Inc Device Closure Vascade Od5 Fr Femoral Artery [id number] - [id number] Implanted:Qty: 1 on 03/27/2023 by Dimitri Garner MD at [facility] [employer] Medical Inc 12/24/2024 700-500DX- 05U / / [id number] [employer]enium [employer] Kit Valve Coronary Aortic Tissue Ramsey 3 Ultra 23mm [id number] - [id number] - [id number] Implanted:Qty: 1 on 06/10/2023 by Dimitri Garner MD at [facility] [employer] 03/05/2026 [id number] / [id number] / Godoy V[employer] Device Clsr Perclose Prostyle Sut-Mediatd Closure-Repair Sys 29623-34 - [id number] Implanted:Qty: 1 on 06/10/2023 by Dimitri Garner MD at [facility] [employer] 02/28/2025 1 2773-03 / / [id number] [employer]oy V[employer] Device Clsr Perclose Prostyle Sut-Mediatd Closure-Repair Sys 67075-57 - [id number] Implanted:Qty: 1 on 06/10/2023 by Dimitri Graner MD at [facility] [employer] 01/28/2025 1 2773-03 / / [id number] Cardiva Medical Inc Device Vascular Closure Femoral Artery Bioabsorbable Dual Method Vascade 6-7fr Collagen [id number] - [id number] Implanted:Qty: 1 on 06/10/2023 by Dimitri Garner MD at [facility] [employer] 02/07/2025 700-580I-0 5U / / [id number] Insurance [facility] MEDICARE ADVANTAGE IDPA Member Subscriber Plan / Payer (Ef fective 2023-) Name:Maday Carrillo Relation to Subscriber:Self Name:Maday Carrillo Payer ID:[id number] Group ID:Not on file Type:MEDICAID ID Address: [place] [id number] [facility] MEDICARE ADVANTAGE [facility] MEDICARE ADVANTAGE IDPA Advance Directives For more information, please contact: [phone] Documents on File Type Date Recorded Patient [employer] Expl anation ADVANCE DIRECTIVE 03/28/2023 6:37 PM [...] 8:05 PM 02/12/2018 10:08 PM Care Teams Grain Combine Driver Relationship Specialty Start Date End Date Irwin Vega MD [address] [address] PCP - General 02/08/11
--- OUTSIDE RECORDS SUMMARY | 2024-11-26 12:37 | XMS_ITS | Encounter Summary ---
Author Organization [facility] Address [address] [facility] [place] [address] Care Team Providers Care Bean Snapper Name Role Phone Irwin Vega MD Primary Care Provider Encounter Details Date Type Department Care Team (Late st Contact Info) Description 07/16/2019 Lab Requisition [facility] DermPath Lab [address] [facility] [place] [address] [place] [address] Social History Tobacco Use Types Packs/Day Years Used Date Smoking Tobacco: Never Assessed Comments Unknown Sex and Gender Information Value Date Recorded Sex Assigned at Not on file Legal Sex Female 7:26 PM POLISHER APPRENTICE Gender Identity Not on file Sexual Orientation Not on file documented as of this encounter Plan of Treatment Not on file documented as of this encounter Procedures Procedure Name Priority Date/Time Associated Diagnosis Comments IMMUNOFLUORESCENT STUDY DERM Routine 07/15/2019 12:00 AM POLISHER APPRENTICE documented in this encounter Results * IMMUNOFLUORESCENT STUDY DERM (07/15/2019 12:00 AM POLISHER APPRENTICE) Case Report Dermatopathol ogy Report Case: [id number] Authorizing Provider: Cisco Salinas MD Collected: 07/15/2019 12:00 AM Ordering Location: [facility] Derm[facility] Lab Received: 07/16/2019 01:20 PM Pathologist: Roberto Ly MD Specimen: Skin, right upper back perilesional 0 11:38 AM POLISHER APPRENTICE DERMATOPATHOLOGY LABORATORY Final Diagnosis Specimen A. SKIN, right upper back perilesional: COLLOID BODIES (L98.9) (see microscopic description) (see fixed tissue results [id number]) 0 11:38 AM [facility] DERMATOPATHOLOGY LABORATORY at 1138 POLISHER APPRENTICE Direct Immunofluorescence Report - Specimen A Specimen A IgA IgM IgG C3 CollV Fibrinogen Epidermis Negative Negative Negative Negative Negative Negative Basement Membrane Negative Negative Negative Negative 2+ Negative Vessels Negative Negative Negative Negative 2+ Negative Interstitium Colloid Colloid Negative Colloid Negative Non specific 0 11:38 AM [facility] DERMATOPATHOLOGY LABORATORY Clinical History R/O Dermatitis,ps oriasis,eczem a. 0 11:38 AM [facility] DERMATOPATHOLOGY LABORATORY Gross Description Specimen A: Received is one Nirav's media filled container labeled with the patient's name and designated right upper back perilesional. The specimen consists of a punch biopsy measuring [id number]. The specimen is submitted in whole for direct immunofluores cence testing. 0 11:38 AM [facility] DERMATOPATHOLOGY LABORATORY Microscopic Description Specimen [...] See fixed tissue results. 0 11:38 AM [facility] DERMATOPATHOLOGY LABORATORY Disclaimer An external and internal positive and negative controls are appropriate for the histochemical , immunohistoch emical and immunofluores cence stain(s) in this case (if any), except where stated explicitly. The performance characteristi cs of the stain(s) cited in this report were developed and its performance characteristi c determined by the Dermatopathol ogy Laboratory at [facility], directed by Dr. Teressa Ly. These tests need not be, and therefore are not, approved by the [place] Food and Drug Administratio n. The tests are used for clinical purposes. Billing Codes Specimen Charges Stain Charges 59983 74712 72676 30246 77570 94370 1 1 1 1 1 1 0 11:38 AM POLISHER APPRENTICE DERMATOPATHOLOGY LABORATORY Embedded Images 0 11:38 AM POLISHER APPRENTICE DERMATOPATHOLOGY LABORATORY Pathology/Cytolog y TISSUE SPECIMEN FROM SKIN / Unknown 07/15/2019 07/16/2019 1:20 PM POLISHER APPRENTICE Cisco Salinas MD LAB - PATHOLOGY/CYTOLOGY ORD ERABLES Final Result DERMATOPATHOLOGY LABORATORY [facility] - Department of Dermatology [address] [place] [address] [address] Floor Lab [address] [phone] documented in this encounter Visit Diagnoses Not on filedocumented in this encounter Care Teams Bean Snapper Relationship Specialty Start Date End Date Irwin Vega MD PCP - General 12/21/14 documented as of this encounter
--- OUTSIDE RECORDS SUMMARY | 2024-11-26 12:37 | XMS_ITS | Encounter Summary ---
Author Organization [facility] Address [address] [place] [address] Care Team Providers Care Egg And Spice Mixer Name Role Phone Iriwn Vega MD Primary Care Provider [phone] Encounter Details Date Type Department Care Team (Late st Contact Info) Description 07/16/2019 Lab Requisition [facility] [address] [place] [address] [place] [address] Social History Tobacco Use Types Packs/Day Years Used Date Smoking Tobacco: Never Assessed Comments Unknown Sex and Gender Information Value Date Recorded Sex Assigned at Not on file Legal Sex Female 7:26 PM STAFFING BRANCH MANAGER Gender Identity Not on file Sexual Orientation Not on file documented as of this encounter Plan of Treatment Not on file documented as of this encounter Procedures Procedure Name Priority Date/Time Associated Diagnosis Comments DERMATOPATHOLOGY Routine 07/15/2019 12:0 0 AM STAFFING BRANCH MANAGER documented in this encounter Results * DERMATOPATHOLOGY (07/15/2019 12:00 AM STAFFING BRANCH MANAGER) Case Report Dermatopathology Report Case: [id number] Authorizing Provider: Cisco Salinas MD Collected: 07/15/2019 12:00 AM Ordering Location: [facility] Received: 07/16/2019 01:19 PM Pathologist: Roberto Ly MD Specimens: A) - Skin, left medial ankle B) - Skin, right upper back 0 11:37 AM STAFFING BRANCH MANAGER DERMATOPATHOLOGY LABORATORY Final Diagnosis Specimen A. 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 SKIN, right upper back: URTICARIA, CONSISTENT WITH (L50.9) (see direct immunofluorescence results [id number]) 0 11:37 AM [facility] DERMATOPATHOLOGY [facility]ORATORY at [address] STAFFING BRANCH MANAGER Clinical History A-B: R/O Dermatitis, psoriasis, eczema. 0 11:37 AM [facility] DERMATOPATHOLOGY [facility]ORAT[facility] Gross Description Specimen A: Received is one formalin filled container labeled with the patient's name and designated left medial ankle. The specimen consists of a shave biopsy measuring [id number]. Jar 0. Specimen B: Received is one formalin filled container labeled with the patient's name and designated right upper back. The specimen consists of a punch biopsy measuring [id number] bisected. Jar 0. 0 11:37 AM [facility] DERMATOPATHOLOGY [facility]ORATORY Microscopic Description Specimen [...] See direct immunofluorescence results. 0 11:37 AM [facility] DERMATOPATHOLOGY [facility]ORATORY Disclaimer An external and internal positive and negative controls are appropriate for the histochemical, immunohistochemical and immunofluorescence stain(s) in this case (if any), except where stated explicitly. The performance characteristics of the stain(s) cited in this report were developed and its performance characteristic determined by the Dermatopathology Laboratory at [facility], directed by Dr. Teressa Ly. These tests need not be, and therefore are not, approved by the [place] Food and Drug Administration. The tests are used for clinical purposes. Billing Codes Specimen Charges Stain Charges 35822 28907 1 1 0 11:37 AM STAFFING BRANCH MANAGER DERMATOPATHOLOGY LABORATORY Embedded Images 0 11:37 AM STAFFING BRANCH MANAGER DERMATOPATHOLOGY LABORATORY Pathology/Cytology TISSUE SPECIMEN FROM SKIN / Unknown 07/15/2019 07/16/2019 1:19 PM STAFFING BRANCH MANAGER Miscellaneous samples (specimen) TISSUE SPECIMEN FROM SKIN / Unknown 07/15/2019 07/16/2019 1:19 PM STAFFING BRANCH MANAGER Cisco Salinas MD LAB - PATHOLOGY/CYTOLOGY ORD ERABLES Final Result DERMATOPATHOLOGY LABORATORY [facility] - Department of Dermatology [address] [place] [address] 5th Floor Lab [address] [phone] documented in this encounter Visit Diagnoses Not on filedocumented in this encounter Care Teams Egg And Spice Mixer Relationship Specialty Start Date End Date Irwin Vega MD PCP - General 12/21/14 documented as of this encounter
--- OUTSIDE RECORDS SUMMARY | 2024-11-26 12:37 | XMS_ITS | Clinical Summary ---
Author Organization [facility] Address [address] [place] [address] Care Team Providers Care Senior Health Educator Name Role Phone Irwin Vega MD Primary Care Provider [phone] Source Comments [facility],non-owned Affiliates and Associated Physician Practices is amultiple site organization consisting of ambulatory clinics and hospital sitesin [place], [place], [place] and [place]. This disclosure is being madepursuant to the Care Everywhere program and may not contain all information available regarding this patient. Last updated 18.[facility] [employer] Social History Tobacco Use Types Packs/Day Years Used Date Smoking Tobacco: Never Assessed Comments Unknown Sex and Gender Information Value Date Recorded Sex Assigned at Not on file Legal Sex Female 7:26 PM DAIRY PRODUCTS MAKER Gender Identity Not on file Sexual Orientation Not on file Plan of Treatment Health Maintenance Due Date Last Done Comments BONE DENSITY TESTING 1941 DTAP/TDAP/TD VACCINES (1 - Tdap) 1960 PNEUMOCOCCAL VACCINE 50+ (1 of 1 - PCV) 1991 ZOSTER VACCINE (1 of 2) 1991 Respiratory Syncytial Virus (RSV) Vaccine Pt: or over 60 yrs (1 - 1-dose 75+ series) 2016 COVID-19 VACCINE ( - 2023-2 5 season) 2024 DEPRESSION SCREENING 07/01/2024 INFLUENZA VACCINE (Season Ended) 2025 HEPATITIS B VACCINE Aged Out No longe r eligible based on patient's age to complete this topic HIB VACCINE Aged Out No longer eligi ble based on patient's age to complete this topic HPV VACCINE Aged Out No longer eligi ble based on patient's age to complete this topic MENINGOCOCCAL (Group B) VACC INE SHARED DECISION-MAKING Aged Out No longer eligibl e based on patient's age to complete this topic MENINGOCOCCAL GROUPS A/C/Y/W VACCINE Aged Out No longer eligible b ased on patient's age to complete this topic Insurance MEDICARE [facility] Care Teams Senior Health Educator Relationship Specialty Start Date End Date Irwin Vega MD PCP - General 12/21/14
--- NOTE | 2024-11-26 12:41 | ECG_ITS ---
Test Date: 2024-11-26 12:47:45 Measurements Intervals [place] Rate: 113 P: 0 AK: 0 QRS: -22 QRSD: 83 T: 70 QT: 268 QTc: 369 Interpretive Statements ATRIAL FIBRILLATION WITH RAPID VENTRICULAR RESPONSE LOW QRS VOLTAGE IN PRECORDIAL LEADS [QRS DEFLECTION < 1.0 mV IN CHEST LEADS] POSSIBLE ANTERIOR MYOCARDIAL INFARCTION , PROBABLY OLD [30 ms Q WAVE IN V3/V4, OR R < 0.2 mV IN V4] INFERIOR INFARCT, PROBABLY OLD NONSPECIFIC ST AND T WAVE ABNORMALITY ABNORMAL RHYTHM ECG Compared to ECG 08/26/2024 16:25:42 NO SIGNIFICANT CHANGES Electronically Signed On 11-27-2024 11:05:22 CDT by Aydee Yi M.D.
--- NOTE | 2024-11-26 13:55 | ED.GENADULT ---
HPI - General Adult General Chief complaint: Unspecified <Danielle Geiger PA-C - Last Filed: 11/27/24 10:15> Stated complaint: weeping/edema in legs, tachycardia, disoriented <Danielle Geiger PA-C - Last Filed: 11/27/24 10:15> Time Seen by Provider: 11/26/24 13:55 <Danielle Geiger PA-C - Last Filed: 11/27/24 10:15> Focused HPI: This is a 84 year old female that presents to the ER for lower extremity edema. Reports weeping. She finished Keflex recently with relief of redness. She is supposed to take Lasix daily, but she doesn't. Reports she last took it yesterday. Reports confusion. Reports she fell three nights ago and hit her head. She takes Eliquis. Denies fevers, vomiting. GENERAL: Elderly, well-nourished, and in no acute distress. HEAD: Normocephalic. Contusions over the face CHEST: Clear to auscultation. ?No respiratory distress. HEART: Regular rate and rhythm.? NEURO: ?Alert and oriented x3. Patient screened in triage and initial orders placed.? ?Additional care and disposition to be based upon?diagnostic testing and treatment. <Danielle Geiger PA-C - Last Filed: 11/27/24 10:15> History of Present Illness HPI narrative: patient a 84-year-old female presents emergency department chief complaint of lower extremity edema. Patient reports he has had yellow drainage from her legs from the edema reports that she was started on Keflex and is currently on Keflex. Patient states that she has had a recent fall struck head and also struck her face. Patient reports she has bruising over face the family reports that at times she has been little confused family noticed also that she has been having increasing weakness <Twin Leiva MD - Last Filed: 11/26/24 18:52> Related Data Home medications: Home Medications ?Medication ?Instructions ?Recorded ?Confirmed ?Last Taken ?Type bimatoprost 0.01 % eye drops 1 drop ophthalmic (eye) DAILY 05/07/19 11/17/24 Unknown History ([place]) biotin 10,000 mcg capsule 10,000 mcg PO DAILY 05/07/19 11/17/24 Unknown History dorzolamide 2 % eye drops 1 drop ophthalmic (eye) BID 05/07/19 11/17/24 Unknown History melatonin 10 mg tablet 10 mg PO DAILY PRN Insomnia 05/07/19 11/17/24 Unknown History multivitamin 1 cap PO DAILY 05/07/19 11/17/24 Unknown History clobetasol 0.05 % topical ointment 1 applic topical BID PRN rash 12/11/22 11/17/24 Unknown History apixaban 2.5 mg tablet (Eliquis) 2.5 mg PO BID 06/12/23 11/17/24 Unknown History furosemide 20 mg tablet 20 mg PO .QOD 11/17/24 11/17/24 Unknown History <Danielle Geiger PA-C - Last Filed: 11/27/24 10:15> Allergies/adverse reactions: Allergies Allergy/AdvReac Type Severity Reaction Status Date / Time nickel Allergy Intermediate RASH Verified 11/26/24 15:11 oxycodone Allergy Intermediate HALLUCINATE Verified 11/26/24 15:11 S <Danielle Geiger PA-C - Last Filed: 11/27/24 10:15> Review of Systems Review of Systems: A 10 system review of systems was completed on the patient and is negative except for what is stated in the HPI. Nursing and ancillary documentation was reviewed. <Twin Leiva MD - Last Filed: 11/26/24 18:52> [facility] Past Medical History Medical History: Medical History Bilateral lower leg cellulitis BMI 20.0-20.9, adult Body mass index [BMI] 22.0-22.9, adult BMI 21.0-21.9, adult Functional disorder of bladder Bunion of great toe of right foot At high risk for falls COVID-19 (~06/11/22) tested positive 06/11/2022. BMI 23.0-23.9, adult Chronic nonallergic rhinitis (~2021) Edema, peripheral Persistent proteinuria associated with type 2 diabetes mellitus (05/15/21) 1+ protein on urinalysis on 05/15/2021. 1+ protein on 12/04/2022. Protein is negative, urine microalbumin ratio elevated at 47 On 05/30/2023. Hypothyroidism, unspecified (05/15/21) TSH elevated at 10.0 on 05/16/2021. Previous TSH normal at 1.67 on 05/02/2021. TSH normal at 2.41 with free T4 1.54 on 12/04/2022. Hypertension associated with diabetes Hyperlipidemia associated with type 2 diabetes mellitus Frequent falls Atrial fibrillation with rapid ventricular response Syncope Laceration of occipital scalp Head injury, acute Glaucoma Diabetic peripheral neuropathy associated with type 2 diabetes mellitus Diabetic retinopathy associated with controlled type 2 diabetes mellitus Nail fungal infection Mycotic toenails Fatigue Heart murmur on physical examination Hx of urinary frequency BMI 25.0-25.9,adult Colon cancer screening Breast cancer screening by mammogram Peripheral arterial disease (09/05/20) patient had abnormal KEYA screening on 09/05/2020 with moderate decrease in the right foot and significant in the left Prurigo nodularis Chronic depression Urticaria Type 2 diabetes mellitus without complications glucose 89 and hemoglobin A1c 6.2 on 05/15/2021. Fasting glucose 102 with hemoglobin A1c 5.8 on 12/04/2022. Glucose 99 with hemoglobin A1c 5.6 with microalbumin ratio 47 on 05/30/2023. Rotator cuff arthropathy of right shoulder Spinal stenosis <Danielle Geiger PA-C - Last Filed: 11/27/24 10:15> Surgical History Surgical History: Surgical History H/O eye surgery History of bilateral knee replacement History of partial hysterectomy History of back surgery Hx of fusion of cervical spine <Danielle Geiger PA-C - Last Filed: 11/27/24 10:15> Family History Family History: Family History Mother Patient's mother is , Onset Age: 90 Old age Heart disease Breast cancer Father Patient's father is , Onset Age: 87 Heart disease Bladder cancer <Danielle Geiger PA-C - Last Filed: 11/27/24 10:15> Social History Social History: Social History Smoking status: Former smoker Alcohol intake: current Substance use: never Substance use type: does not use Other substance usage details: pain pump/morphine Lack of Transportation: No Lack of Food: Never True Current Housing: I Have Housing Concerned About Future Housing: No Difficulty Paying Gas/Electric Bills: No Difficulty Paying for Meds: No Currently Unemployed: No Education: High School Diploma/GED Difficulty w/ Childcare or Family Care: No Gender identity (if verbalized by the patient): Female Spiritual care concerns: No <Danielle Geiger PA-C - Last Filed: 11/27/24 10:15> Exam Narrative: GENERAL: Well-appearing, well-nourished, and in no acute distress. HEAD: Normocephalic, Bruising over the forehead and upper face. EYES: PERRLA and EOMI. ENT: Nares clear, no rhinorrhea or epistaxis. Mucous membranes moist. NECK: Supple. CHEST: Clear to auscultation. No respiratory distress. HEART: Regular rate and rhythm. No murmur heard. Normal peripheral pulses. ABDOMEN: Soft, nontender, nondistended, normal active bowel sounds. EXTREMITIES: Normal range of motion. +1 edema. SKIN: Warm, dry, no rash. NEURO: No focal deficits. Alert and oriented x3. PSYCH: Normal mood and affect. <Twin Leiva MD - Last Filed: 11/26/24 18:52> Course Vital Signs Vital signs: Vital Signs Temperature 98.2 F 11/26/24 12:38 Pulse Rate 120 H 11/26/24 12:38 Respiratory Rate 16 11/26/24 12:38 Blood Pressure 115/66 11/26/24 12:38 Pulse Oximetry 98 11/26/24 12:38 Temperature 97.6 F 11/26/24 19:26 Pulse Rate 96 11/26/24 19:26 Respiratory Rate 19 11/26/24 19:26 Blood Pressure 142/89 H 11/26/24 19:26 Pulse Oximetry 99 11/26/24 19:26 <Danielle Geiger PA-C - Last Filed: 11/27/24 10:15> Vital Signs Temperature 98.2 F 11/26/24 12:38 Pulse Rate 120 H 11/26/24 12:38 Respiratory Rate 16 11/26/24 12:38 Blood Pressure 115/66 11/26/24 12:38 Pulse Oximetry 98 11/26/24 12:38 Temperature 97.6 F 11/26/24 19:26 Pulse Rate 96 11/26/24 19:26 Respiratory Rate 19 11/26/24 19:26 Blood Pressure 142/89 H 11/26/24 19:26 Pulse Oximetry 99 11/26/24 19:26 <Twin Leiva MD - Last Filed: 11/26/24 18:52> Medical Decision Making MDM Narrative Medical decision making narrative: Differential diagnosis includes CHF exacerbation, DVT, infection, renal failure, intracranial hemorrhage, Laboratory studies were obtained on the patient which showed a normal white blood cell count BNP was elevated at 5290 patient troponin was negative procalcitonin is 1.4 urinalysis was negative Chest x-ray showed no focal infiltrate CT C-spine and CT head showed no evidence of fracture or intracranial hemorrhage <Twin Leiva MD - Last Filed: 11/26/24 18:52> Vital Signs Vital Signs: Vital Signs Temperature 98.2 F 11/26/24 12:38 Pulse Rate 120 H 11/26/24 12:38 Respiratory Rate 16 11/26/24 12:38 Blood Pressure 115/66 11/26/24 12:38 Pulse Oximetry 98 11/26/24 12:38 Temperature 97.6 F 11/26/24 19:26 Pulse Rate 96 11/26/24 19:26 Respiratory Rate 19 11/26/24 19:26 Blood Pressure 142/89 H 11/26/24 19:26 Pulse Oximetry 99 11/26/24 19:26 <Danielle Geiger PA-C - Last Filed: 11/27/24 10:15> Vital Signs Temperature 98.2 F 11/26/24 12:38 Pulse Rate 120 H 11/26/24 12:38 Respiratory Rate 16 11/26/24 12:38 Blood Pressure 115/66 11/26/24 12:38 Pulse Oximetry 98 11/26/24 12:38 Temperature 97.6 F 11/26/24 19:26 Pulse Rate 96 11/26/24 19:26 Respiratory Rate 19 11/26/24 19:26 Blood Pressure 142/89 H 11/26/24 19:26 Pulse Oximetry 99 11/26/24 19:26 <Twin Leiva MD - Last Filed: 11/26/24 18:52> Lab Data Result diagrams: 11/26/24 15:06 11/26/24 15:06 <Danielle Geiger PA-C - Last Filed: 11/27/24 10:15> Labs: Lab Results 11/26/24 11/26/24 11/26/24 Range/Units 15:06 15:08 15:10 WBC 12.9 H (4.5-10.0) K/mm3 RBC 3.55 L (4.2-5.4) M/mm3 Hgb 10.6 L (12.0-15.0) g/dL Hct 33.1 L (37.0-47.0) % MCV 93.2 (80-100) fl MCH 29.9 (26-34) pg MCHC 32.0 (32-36) g/dl RDW 14.0 (11.5-14.5) % Plt Count 241 (150-375) k/mm3 MPV 10.3 (7.4-10.4) fl Immature Gran % (Auto) 0.6 H (0-0.5) % Neut % (Auto) 86.5 H (45.5-73.1) % Lymph % (Auto) 4.4 L (18.3-44.2) % [place] % (Auto) 8.2 (2.6-8.5) % Eos % (Auto) 0.1 (0-4.4) % Baso % (Auto) 0.2 (0.2-1.2) % Lymph # (Auto) 0.56 L (0.9-3.2) K/mm3 [place] # (Auto) 1.1 H (0.1-0.6) K/mm3 Eos # (Auto) 0.0 (0-0.3) K/mm3 Baso # (Auto) 0.0 (0.0-0.1) K/mm3 Abs Immat Gran (auto) 0.08 H (0.00-0.031) K/mm3 Absolute Neuts (auto) 11.1 H (1.3-6.7) K/mm3 Absolute Nucleated RBC 0.000 (0.0-0.012) K/mm3 Nucleated RBC % 0.0 (0.0-0.2) % PT 16.0 H (11.1-14.7) Seconds INR 1.3 APTT 37.5 H (22.3-36.8) Seconds Sodium 129 L (137-145) mmol/L Potassium 3.3 L (3.4-5.0) mmol/L Chloride 93 L (98-107) mmol/L Carbon Dioxide 33 H (22-30) mmol/L Anion Gap 3 L (4-12) mmol/L BUN 13 (7-17) mg/dL Creatinine 0.48 L (0.7-1.0) mg/dL Estim Creat Clear Calc 61 ml/min Estimated GFR > 60 (59 - ) Glucose 124 H (65-110) mg/dL Lactic Acid 1.4 (0.7-2.0) mmol/L Calcium 10.2 (8.4-10.2) mg/dL Magnesium 1.7 (1.6-2.3) mg/dL Total Bilirubin 0.7 (0.2-1.3) mg/dL AST 61 H (14-36) U/L ALT 36 H (6-35) U/L Alkaline Phosphatase 91 (38-126) U/L Troponin I < 0.012 (0.000-0.034) ng/mL NT-Pro-B Natriuret Pep 5290 H (19.9-100) pg/mL Total Protein 6.0 L (6.3-8.2) g/dL Albumin 3.4 L (3.5-5.1) g/dL Procalcitonin 1.4 ng/mL Urine Color Yellow (Yellow) Urine Appearance Clear (Clear) Urine pH 7.0 (5.0-9.0) Ur Specific [place] 1.007 (1.001-1.035) Urine Protein Negative (Negative) mg/dL Urine Glucose (UA) Negative (Negative) mg/dL Urine Ketones Negative (Negative) mg/dL Ur Blood (Man) Negative (Negative) Urine Nitrate Negative (Negative) Urine Bilirubin Negative (Negative) Urine Urobilinogen 1.0 (<2.0) mg/dL Leukocyte Esterase Rfl Negative (Negative) CHARLA/UL 05/29/25 Range/Units 18:10 WBC (4.5-10.0) K/mm3 RBC (4.2-5.4) M/mm3 Hgb (12.0-15.0) g/dL Hct (37.0-47.0) % MCV (80-100) fl MCH (26-34) pg MCHC (32-36) g/dl RDW (11.5-14.5) % Plt Count (150-375) k/mm3 MPV (7.4-10.4) fl Immature Gran % (Auto) (0-0.5) % Neut % (Auto) (45.5-73.1) % Lymph % (Auto) (18.3-44.2) % [place] % (Auto) (2.6-8.5) % Eos % (Auto) (0-4.4) % Baso % (Auto) (0.2-1.2) % Lymph # (Auto) (0.9-3.2) K/mm3 [place] # (Auto) (0.1-0.6) K/mm3 Eos # (Auto) (0-0.3) K/mm3 Baso # (Auto) (0.0-0.1) K/mm3 Abs Immat Gran (auto) (0.00-0.031) K/mm3 Absolute Neuts (auto) (1.3-6.7) K/mm3 Absolute Nucleated RBC (0.0-0.012) K/mm3 Nucleated RBC % (0.0-0.2) % PT (11.1-14.7) Seconds INR APTT (22.3-36.8) Seconds Sodium (137-145) mmol/L Potassium (3.4-5.0) mmol/L Chloride (98-107) mmol/L Carbon Dioxide (22-30) mmol/L Anion Gap (4-12) mmol/L BUN (7-17) mg/dL Creatinine (0.7-1.0) mg/dL Estim Creat Clear Calc ml/min Estimated GFR (59 - ) Glucose (65-110) mg/dL Lactic Acid (0.7-2.0) mmol/L Calcium (8.4-10.2) mg/dL Magnesium (1.6-2.3) mg/dL Total Bilirubin (0.2-1.3) mg/dL AST (14-36) U/L ALT (6-35) U/L Alkaline Phosphatase (38-126) U/L Troponin I < 0.012 (0.000-0.034) ng/mL NT-Pro-B Natriuret Pep (19.9-100) pg/mL Total Protein (6.3-8.2) g/dL Albumin (3.5-5.1) g/dL Procalcitonin ng/mL Urine Color (Yellow) Urine Appearance (Clear) Urine pH (5.0-9.0) Ur Specific [place] (1.001-1.035) Urine Protein (Negative) mg/dL Urine Glucose (UA) (Negative) mg/dL Urine Ketones (Negative) mg/dL Ur Blood (Man) (Negative) Urine Nitrate (Negative) Urine Bilirubin (Negative) Urine Urobilinogen (<2.0) mg/dL Leukocyte Esterase Rfl (Negative) CHARLA/UL <Danielle Maida Geiger PA-C - Last Filed: 11/27/24 10:15> Lab Results 11/26/24 11/26/24 11/26/24 Range/Units 15:06 15:08 15:10 WBC 12.9 H (4.5-10.0) K/mm3 RBC 3.55 L (4.2-5.4) M/mm3 Hgb 10.6 L (12.0-15.0) g/dL Hct 33.1 L (37.0-47.0) % MCV 93.2 (80-100) fl MCH 29.9 (26-34) pg MCHC 32.0 (32-36) g/dl RDW 14.0 (11.5-14.5) % Plt Count 241 (150-375) k/mm3 MPV 10.3 (7.4-10.4) fl Immature Gran % (Auto) 0.6 H (0-0.5) % Neut % (Auto) 86.5 H (45.5-73.1) % Lymph % (Auto) 4.4 L (18.3-44.2) % [place] % (Auto) 8.2 (2.6-8.5) % Eos % (Auto) 0.1 (0-4.4) % Baso % (Auto) 0.2 (0.2-1.2) % Lymph # (Auto) 0.56 L (0.9-3.2) K/mm3 [place] # (Auto) 1.1 H (0.1-0.6) K/mm3 Eos # (Auto) 0.0 (0-0.3) K/mm3 Baso # (Auto) 0.0 (0.0-0.1) K/mm3 Abs Immat Gran (auto) 0.08 H (0.00-0.031) K/mm3 Absolute Neuts (auto) 11.1 H (1.3-6.7) K/mm3 Absolute Nucleated RBC 0.000 (0.0-0.012) K/mm3 Nucleated RBC % 0.0 (0.0-0.2) % PT 16.0 H (11.1-14.7) Seconds INR 1.3 APTT 37.5 H (22.3-36.8) Seconds Sodium 129 L (137-145) mmol/L Potassium 3.3 L (3.4-5.0) mmol/L Chloride 93 L (98-107) mmol/L Carbon Dioxide 33 H (22-30) mmol/L Anion Gap 3 L (4-12) mmol/L BUN 13 (7-17) mg/dL Creatinine 0.48 L (0.7-1.0) mg/dL Estim Creat Clear Calc 61 ml/min Estimated GFR > 60 (59 - ) Glucose 124 H (65-110) mg/dL Lactic Acid 1.4 (0.7-2.0) mmol/L Calcium 10.2 (8.4-10.2) mg/dL Magnesium 1.7 (1.6-2.3) mg/dL Total Bilirubin 0.7 (0.2-1.3) mg/dL AST 61 H (14-36) U/L ALT 36 H (6-35) U/L Alkaline Phosphatase 91 (38-126) U/L Troponin I < 0.012 (0.000-0.034) ng/mL NT-Pro-B Natriuret Pep 5290 H (19.9-100) pg/mL Total Protein 6.0 L (6.3-8.2) g/dL Albumin 3.4 L (3.5-5.1) g/dL Procalcitonin 1.4 ng/mL Urine Color Yellow (Yellow) Urine Appearance Clear (Clear) Urine pH 7.0 (5.0-9.0) Ur Specific [place] 1.007 (1.001-1.035) Urine Protein Negative (Negative) mg/dL Urine Glucose (UA) Negative (Negative) mg/dL Urine Ketones Negative (Negative) mg/dL Ur Blood (Man) Negative (Negative) Urine Nitrate Negative (Negative) Urine Bilirubin Negative (Negative) Urine Urobilinogen 1.0 (<2.0) mg/dL Leukocyte Esterase Rfl Negative (Negative) CHARLA/UL //25 Range/Units 18:10 WBC (4.5-10.0) K/mm3 RBC (4.2-5.4) M/mm3 Hgb (12.0-15.0) g/dL Hct (37.0-47.0) % MCV (80-100) fl MCH (26-34) pg MCHC (32-36) g/dl RDW (11.5-14.5) % Plt Count (150-375) k/mm3 MPV (7.4-10.4) fl Immature Gran % (Auto) (0-0.5) % Neut % (Auto) (45.5-73.1) % Lymph % (Auto) (18.3-44.2) % [place] % (Auto) (2.6-8.5) % Eos % (Auto) (0-4.4) % Baso % (Auto) (0.2-1.2) % Lymph # (Auto) (0.9-3.2) K/mm3 [place] # (Auto) (0.1-0.6) K/mm3 Eos # (Auto) (0-0.3) K/mm3 Baso # (Auto) (0.0-0.1) K/mm3 Abs Immat Gran (auto) (0.00-0.031) K/mm3 Absolute Neuts (auto) (1.3-6.7) K/mm3 Absolute Nucleated RBC (0.0-0.012) K/mm3 Nucleated RBC % (0.0-0.2) % PT (11.1-14.7) Seconds INR APTT (22.3-36.8) Seconds Sodium (137-145) mmol/L Potassium (3.4-5.0) mmol/L Chloride (98-107) mmol/L Carbon Dioxide (22-30) mmol/L Anion Gap (4-12) mmol/L BUN (7-17) mg/dL Creatinine (0.7-1.0) mg/dL Estim Creat Clear Calc ml/min Estimated GFR (59 - ) Glucose (65-110) mg/dL Lactic Acid (0.7-2.0) mmol/L Calcium (8.4-10.2) mg/dL Magnesium (1.6-2.3) mg/dL Total Bilirubin (0.2-1.3) mg/dL AST (14-36) U/L ALT (6-35) U/L Alkaline Phosphatase (38-126) U/L Troponin I < 0.012 (0.000-0.034) ng/mL NT-Pro-B Natriuret Pep (19.9-100) pg/mL Total Protein (6.3-8.2) g/dL Albumin (3.5-5.1) g/dL Procalcitonin ng/mL Urine Color (Yellow) Urine Appearance (Clear) Urine pH (5.0-9.0) Ur Specific [place] (1.001-1.035) Urine Protein (Negative) mg/dL Urine Glucose (UA) (Negative) mg/dL Urine Ketones (Negative) mg/dL Ur Blood (Man) (Negative) Urine Nitrate (Negative) Urine Bilirubin (Negative) Urine Urobilinogen (<2.0) mg/dL Leukocyte Esterase Rfl (Negative) CHARLA/UL <Twin Leiva MD - Last Filed: 11/26/24 18:52> Critical Care Time Critical Care Time Critical Care Time: No <Danielle Geiger PA-C - Last Filed: 11/27/24 10:15> Discharge Plan Discharge Clinical Impression: Congestive heart failure Qualifiers: Heart failure type: unspecified Heart failure chronicity: unspecified Qualified Code(s): I50.9 - Heart failure, unspecified Head injury Qualifiers: Encounter type: initial encounter Qualified Code(s): S09.90XA - Unspecified injury of head, initial encounter Contusion of face Qualifiers: Encounter type: initial encounter Qualified Code(s): S00.83XA - Contusion of other part of head, initial encounter <Danielle Geiger PA-C - Last Filed: 11/27/24 10:15> Patient Disposition: Home <ROSE Castillo Last Filed: 11/27/24 10:15> Condition: Stable <ROSE Castillo Last Filed: 11/27/24 10:15> Instructions: Antibiotic Form, Heart Failure (ED), Head Injury (ED), Facial Contusion (ED) <ROSE Castillo Last Filed: 11/27/24 10:15> Patient Language: Wolof <ROSE Castillo Last Filed: 11/27/24 10:15> Prescriptions: No Action famotidine [Pepcid] 40 mg tablet 40 mg PO DAILY Qty: 90 3RF hydroxyzine HCl 25 mg tablet 25 mg PO BID PRN (Reason: itching) Qty: 60 11RF Rx Instructions: take twice daily as needed for itching or anxiety silver sulfadiazine [Silvadene] 1 % cream 1 applic topical BID Qty: 400 11RF Rx Instructions: apply a 1.5 mm thickness apply to the areas of scratches and open wound twice daily until healed clobetasol 0.05 % ointment 1 applic topical BID PRN (Reason: rash) Patient Comments: treated by Dermatology Eliquis 2.5 mg tablet 2.5 mg PO BID Patient Comments: prescribed by Cardiology fluticasone propionate [Flonase Allergy Relief] 50 mcg/actuation spray,suspension 1 spray intranasal BID Qty: 16 11RF Rx Instructions: administer into each nostril furosemide 20 mg tablet 20 mg PO .QOD [place] 0.01 % drops 1 drop EACH EYE DAILY dorzolamide 2 % drops 1 drop EACH EYE BID multivitamin Capsule 1 cap PO DAILY melatonin 10 mg tablet 10 mg PO DAILY PRN (Reason: Insomnia) biotin 10,000 mcg capsule 10,000 mcg PO DAILY cyclobenzaprine 10 mg tablet 10 mg PO TID PRN (Reason: muscle spasm) Qty: 90 0RF ipratropium bromide 42 mcg (0.06 %) spray,non-aerosol 1 spray intranasal TID PRN (Reason: allergy symptoms) Qty: 15 5RF Rx Instructions: administer into each nostril metformin 500 mg tablet extended release 24 hr 500 mg PO . with supper Qty: 90 3RF duloxetine 60 mg capsule,delayed release(DR/EC) 60 mg PO BID Qty: 180 3RF amlodipine [Norvasc] 5 mg tablet 5 mg PO DAILY Qty: 90 3RF methotrexate sodium 2.5 mg tablet 10 mg PO WEEKLY Qty: 16 3RF irbesartan 300 mg tablet 300 mg PO DAILY Qty: 90 3RF atorvastatin 40 mg tablet 40 mg PO DAILY Qty: 90 3RF celecoxib 200 mg capsule 200 mg PO DAILY PRN (Reason: pain) Qty: 90 3RF ropinirole 1 mg tablet 1 mg PO . q.h.s. Qty: 90 3RF metoprolol tartrate 50 mg tablet 75 mg PO Q12H 90 Days Qty: 270 3RF cephalexin 500 mg capsule 500 mg PO Q8H 14 Days Qty: 42 0RF <Danielle Geiger PA-C - Last Filed: 11/27/24 10:15> Follow-up/Referrals: Irwin Vega MD [Primary Care Provider] - <Danielle Geiger PA-C - Last Filed: 11/27/24 10:15> Time of Disposition: 18:29 <Danielle Geiger PA-C - Last Filed: 11/27/24 10:15> 18:29 <Twin Leiva MD - Last Filed: 11/26/24 18:52>
--- OUTSIDE RECORDS SUMMARY | 2024-11-26 15:08 | XMS_ITS | Clinical Summary ---
Author Organization [facility] Address [address] 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 This disclosure is being madepursuant to the Care Everywhere program and may not contain all information available regarding this patient. Last updated 18.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
--- OUTSIDE RECORDS SUMMARY | 2024-11-26 15:08 | XMS_ITS | Clinical Summary ---
Author Organization [facility] Address [address] [place] [address] Care Team Providers Care Flight Radio Operator Name Role Phone Irwin Vega MD Primary Care Provider [phone] Allergies Active Allergy Reactions Criticality Noted Date [...] with home pain meds, Fentanyl patch 75, Trinity 7.5/325 Q6, Cymbalta 60 Pre-diabetes 02/12/2018 Assessment [...] Smoking Tobacco: Former Cigarettes 2 30 1 1997 Smokeless Tobacco: Never Alcohol Use Standard Drinks/Week Comments No 0 (1 standard drink = 0.6 oz pur e alcohol) [facility] Utilities Answer Date Recorded In the past 12 months has [employer], gas, oil, or water [employer] threatened to shut off services in your [...] 06/11/2023 How often do you attend chur or mu-ism services? Never 06/11/2023 Do you belong to any clubs o r organizations such as confucianism groups, unions, fraternal or athletic groups, or [...] place to sleep or slept in a jail (including now)? No 06/11/2023 Personal Safety Answer Date Recorded Have you ever been in or are you currently in a harmful physical or emotional relationship or is someone making you feel afraid or unsafe? Denies 06/10/2023 Comments No Sex and Gender Information Value Date Recorded Sex Assigned at Not on file Legal Sex Female 1:54 AM LAND SURVEYING PARTY CHIEF Gender Identity Not on file Sexual Orientation Not on file Obstetrics History Last Filed Vital Signs Vital Sign Reading Time Taken Comments Blood Pressure 130/78 10/21/2023 10:08 AM CDT Pulse 80 10/21/2023 10:08 AM CDT Temperature 36.9 C (98.4 F) 06/11/2023 12:19 PM LAND SURVEYING PARTY CHIEF Respiratory Rate 18 06/11/2023 12:19 PM LAND SURVEYING PARTY CHIEF Oxygen Saturation 97% 10/21/2023 10:08 AM CDT [...] (2023-2 5 season) 2024 05/17/2021, 10/10/2020, 09/19/2020 Fall Risk Assessment 06/11/2024 06/11/2023 Influenza Vaccine (Season Ended) 2025 04/21/2020, 03/04/2018, 06/13/2016, Additional history exists DTaP/Tdap/Td Vaccine (2 - Td or Tdap) 11/07/2030 11/07/2020 Pneumococcal vaccine 65+ Completed 03/04/2018, 05/31 Zoster Vaccine Completed 04/21/2020, 12/31, 07/15/2013 Medical Devices Implanted Type Area Finished Carpet Inspector Device Identifier Shelf Expiration Date Model / Serial / Lot Medtronic Inc 8780 Ascenda 4fr .5mm 114cm 86cm 2 Piece Connector Pin Flexible Closed - [id number] Implanted:Qty: 1 on 01/17/2021 by He Sorenson MD at [facility] Left: Back Medtronic Inc 12/05/2022 8780 / / [id number] Medtronic Neuro 8637-20 Synchromed Ii .78in [place] Filter Mesh Pouch Programmable - [id number] - [id number] Implanted:Qty: 1 on 01/17/2021 by He Sorenson MD at [facility] Left: Back Medtronic Inc 04/27/2022 8637-20 / [id number] / Cardiva [employer] Inc Device Closure Vascade Od5 Fr Femoral Artery [id number] - [id number] Implanted:Qty: 1 on 03/27/2023 by Dimitri Garner MD at [facility] 12/24/2024 700-500DX- 05U / / [id number] Juan [employer] Kit Valve Coronary Aortic Tissue Ramsey 3 Ultra 23mm [id number] - [id number] - [id number] Implanted:Qty: 1 on 06/10/2023 by Dimitri Garner MD at [facility] [employer] 03/05/2026 [id number] / [id number] / Godoy V[employer] Device Clsr Perclose Prostyle Sut-Mediatd Closure-Repair Sys 12085-93 - [id number] Implanted:Qty: 1 on 06/10/2023 by Dimitri Garner MD at [facility] [employer] 02/28/2025 1 2773-03 / / [id number] Godoy V[employer] Device Clsr Perclose Prostyle Sut-Mediatd Closure-Repair Sys 42343-87 - [id number] Implanted:Qty: 1 on 06/10/2023 by Dimitri Garner MD at [facility] [employer] 01/28/2025 1 2773-03 / / [id number] Cardisc Medical [facility] Device Vascular Closure Femoral Artery Bioabsorbable Dual Method Vascade 6-7fr Collagen [id number] - [id number] Implanted:Qty: 1 on 06/10/2023 by Dimitri Garner MD at [facility] 02/07/2025 700-580I-0 5U / / [id number] Insurance [facility] MEDICARE ADVANTAGE IDPA IDPA [facility] MEDICARE ADVANTAGE [facility] MEDICARE ADVANTAGE IDPA Advance Directives For more information, please contact: [phone] Documents on File Type Date Recorded Patient Seed Production Field Supervisor Expl anation ADVANCE DIRECTIVE 03/28/2023 6:37 [...] 8:05 PM 02/12/2018 10:08 PM Care Teams Flight Radio Operator Relationship Specialty Start Date End Date Irwin Vega MD [address] [address] PCP - General 02/08/11
--- OUTSIDE RECORDS SUMMARY | 2024-11-26 15:08 | XMS_ITS | Encounter Summary ---
Author Organization [facility] Address [address] [place] [address] Care Team Providers Care Cigarette Inspector Name Role Phone Irwin Vega MD Primary Care Provider [phone] Encounter Details Date Type Department Care Team (Late st Contact Info) Description 01/30/2018 Lab Requisition [facility] [address] [facility] [place] [address] Cisco Salinas MD [address] [place] [address] Social History Tobacco Use Types Packs/Day Years Used Date Smoking Tobacco: Never Assessed Comments Unknown Sex and Gender Information Value Date Recorded Sex Assigned at Not on file Legal Sex Female 7:26 PM PRODUCTION REPAIRER Gender Identity Not on file Sexual Orientation Not on file documented as of this encounter Plan of Treatment Not on file documented as of this encounter Procedures Procedure Name Priority Date/Time Associated Diagnosis Comments DERMATOPATHOLOGY Routine 01/29/2018 12:0 0 AM CDT documented in this encounter Results * DERMATOPATHOLOGY (01/29/2018 12:00 AM CDT) Case Report Dermatopathology Report Case: [id number] Authorizing Provider: Cisco Salinas MD Collected: 01/29/2018 [...] characteristic determined by the Dermatopathology Laboratory at [facility]. These tests need not be, and therefore are not, approved by the [place] Food and Drug Administration. The tests are used for clinical purposes. Billing Codes Specimen Charges Stain Charges 92360 1 3:42 PM CDT DERMATOPATHOLOGY LABORATORY Embedded Images 3:42 PM CDT DERMATOPATHOLOGY LABORATORY Pathology/Cytolog y TISSUE SPECIMEN FROM SKIN / Unknown 01/29/2018 01/30/2018 11:31 AM CDT us Cisco Salinas MD LAB - PATHOLOGY/CYTOLOGY ORD ERABLES Final Result DERMATOPATHOLOGY LABORATORY [facility] - Department of Dermatology [address] [place] [address], [address] [place] [address], [facility] [phone] documented in this encounter Visit Diagnoses Not on filedocumented in this encounter Care Teams Cigarette Inspector Relationship Specialty Start Date End Date Irwin Vega MD PCP - General 12/21/14 documented as of this encounter
--- OUTSIDE RECORDS SUMMARY | 2024-11-26 15:08 | XMS_ITS | Encounter Summary ---
Author Organization [facility] Address [address] [place] [address] Care Team Providers Care Director Of Promotions Name Role Phone Irwin Vega MD Primary Care Provider [phone] Encounter Details Date Type Department Care Team (Late st Contact Info) Description 07/16/2019 Lab Requisition [facility] DermPath Lab [address] [facility] [place] [address] [place] [address] Social History Tobacco Use Types Packs/Day Years Used Date Smoking Tobacco: Never Assessed Comments Unknown Sex and Gender Information Value Date Recorded Sex Assigned at Not on file Legal Sex Female 7:26 PM RESERVATIONIST Gender Identity Not on file Sexual Orientation Not on file documented as of this encounter Plan of Treatment Not on file documented as of this encounter Procedures Procedure Name Priority Date/Time Associated Diagnosis Comments IMMUNOFLUORESCENT STUDY DERM Routine 07/15/2019 12:00 AM RESERVATIONIST documented in this encounter Results * IMMUNOFLUORESCENT STUDY DERM (07/15/2019 12:00 AM RESERVATIONIST) Case Report Dermatopathol ogy Report Case: [id number] Authorizing Provider: Cisco Salinas MD Collected: 07/15/2019 12:00 AM Ordering Location: [facility] DermPath Lab Received: 07/16/2019 01:20 PM Pathologist: Roberto Ly MD Specimen: Skin, right upper back perilesional 0 11:38 AM RESERVATIONIST DERMATOPATHOLOGY LABORATORY Final Diagnosis Specimen A. SKIN, right upper back perilesional: COLLOID BODIES (L98.9) (see microscopic description) (see fixed tissue results [id number]) 0 11:38 AM [facility] DERMATOPATHOLOGY LABORATORY at 1138 RESERVATIONIST Direct Immunofluorescence Report - Specimen A Specimen A IgA IgM IgG C3 CollV Fibrinogen Epidermis Negative Negative Negative Negative Negative Negative Basement Membrane Negative Negative Negative Negative 2+ Negative Vessels Negative Negative Negative Negative 2+ Negative Interstitium Colloid Colloid Negative Colloid Negative Non specific 0 11:38 AM [facility] DERMATOPATHOLOGY LABORATORY Clinical History R/O Dermatitis,ps oriasis,eczem a. 0 11:38 AM [facility] DERMATOPATHOLOGY LABORATORY Gross Description Specimen A: Received is one Nirav's media filled container labeled with the patient's name and designated right upper back perilesional. The specimen consists of a punch biopsy measuring [id number]. The specimen is submitted in whole for direct immunofluores cence testing. 0 11:38 AM [facility] DERMATOPATHOLOGY LABORATORY Microscopic [...] See fixed tissue results. 0 11:38 AM [facility] DERMATOPATHOLOGY LABORATORY Disclaimer An external and internal positive and negative controls are appropriate for the histochemical , immunohistoch emical and immunofluores cence stain(s) in this case (if any), except where stated explicitly. The performance characteristi cs of the stain(s) cited in this report were developed and its performance characteristi c determined by the Dermatopathol ogy Laboratory at [facility], directed by Dr. Teressa Ly. These tests need not be, and therefore are not, approved by the [place] Food and Drug Administratio n. The tests are used for clinical purposes. Billing Codes Specimen Charges Stain Charges 31071 82730 30337 61148 77195 23579 1 1 1 1 1 1 0 11:38 AM RESERVATIONIST DERMATOPATHOLOGY LABORATORY Embedded Images 0 11:38 AM RESERVATIONIST DERMATOPATHOLOGY LABORATORY Pathology/Cytolog y TISSUE SPECIMEN FROM SKIN / Unknown 07/15/2019 07/16/2019 1:20 PM RESERVATIONIST Cisco Salinas MD LAB - PATHOLOGY/CYTOLOGY ORD ERABLES Final Result DERMATOPATHOLOGY LABORATORY [facility] - Department of Dermatology [address] [place] [address] 5th Floor Lab [address] [phone] documented in this encounter Visit Diagnoses Not on filedocumented in this encounter Care Teams Director Of Promotions Relationship Specialty Start Date End Date Irwin Vega MD PCP - General 12/21/14 documented as of this encounter
--- OUTSIDE RECORDS SUMMARY | 2024-11-26 15:08 | XMS_ITS | Referral Summary ---
Author Organization [facility] Address [address] [place] [address] Care Team Providers Care Db2 Dba Name Role Phone Irwin Vega MD Primary Care Provider [phone] Allergies Active Allergy Reactions Criticality Noted Date [...] with home pain meds, Fentanyl patch 75, Coamo 7.5/325 Q6, Cymbalta 60 Pre-diabetes 02/12/2018 Assessment [...] drink = 0.6 oz pur e alcohol) [facility] Utilities Answer Date Recorded In the past 12 months has e electric, gas, oil, or water company [...] often do you attend chur ch or holiness services? Never 06/11/2023 Do you belong to any clubs o r organizations such as temple groups, unions, fraternal or athletic groups, or [...] place to sleep or slept in a long-term (including now)? No 06/11/2023 Personal Safety Answer Date Recorded Have you ever been in or are you currently in a harmful physical or emotional relationship or is someone making you feel afraid or unsafe? Denies 06/10/2023 Comments No Sex and Gender Information Value Date Recorded Sex Assigned at Not on file Legal Sex Female 1:54 AM MERCHANT POLICE Gender Identity Not on file Sexual Orientation Not on file Last Filed Vital Signs Vital Sign Reading Time Taken Comments Blood Pressure 130/78 10/21/2023 10:08 AM CDT Pulse 80 10/21/2023 10:08 AM CDT Temperature 36.9 C (98.4 F) 06/11/2023 12:19 PM MERCHANT POLICE Respiratory Rate 18 06/11/2023 12:19 PM MERCHANT [employer]ICE Oxygen Saturation 97% 10/21/2023 10:08 AM CDT Inhaled Oxygen Concentration - - Weight 57.6 kg (127 lb) 10/21/2023 10:08 AM CDT Height 157.5 cm (5' 2) 10/21/2023 10:08 AM CDT Body Mass Index 23.23 10/21/2023 10:08 AM CDT Plan of Treatment Not on file Medical Devices Implanted Type Area Cdl B Driver Device Identifier Shelf Expiration Date Model / Serial / Lot Medtronic Inc 8780 Ascenda 4fr .5mm 114cm 86cm 2 Piece Connector Pin Flexible Closed - [id number] Implanted:Qty: 1 on 01/17/2021 by He Sorenson MD at [facility] Left: Back Medtronic Inc 12/05/2022 8780 / / [id number] Medtronic Neuro 8637-20 Synchromed Ii .78in [place]aver Filter Mesh Pouch Programmable - [id number] - [id number] Implanted:Qty: 1 on 01/17/2021 by He Sorenson MD at [facility] Left: Back Medtronic Inc 04/27/2022 8637-20 / [id number] / Cardiva Medical Inc Device Closure Vascade Od5 Fr Femoral Artery [id number] - [id number] Implanted:Qty: 1 on 03/27/2023 by Dimitri Garner MD at [facility] 12/24/2024 700-500DX- 05U / / [id number] Juan [employer] Kit Valve Coronary Aortic Tissue Ramsey 3 Ultra 23mm [id number] - [id number] - [id number] Implanted:Qty: 1 on 06/10/2023 by Dimitri Garner MD at [facility] [employer] 03/05/2026 [id number] / [id number] / [employer]oy V[employer] Device Clsr Perclose Prostyle Sut-Mediatd Closure-Repair Sys 57803-03 - [id number] Implanted:Qty: 1 on 06/10/2023 by Dimitri Garner MD at [facility] [employer] 02/28/2025 1 2773-03 / / [id number] [employer] V[employer] Device Clsr Perclose Prostyle Sut-Mediatd Closure-Repair Sys 79954-16 - [id number] Implanted:Qty: 1 on 06/10/2023 by Dimitri Garner MD at [facility] [employer] 01/28/2025 1 2773-03 / / [id number] [employer] Inc Device Vascular Closure Femoral Artery Bioabsorbable Dual Method Vascade 6-7fr Collagen [id number] - [id number] Implanted:Qty: 1 on 06/10/2023 by Dimitri Garner MD at [facility] 02/07/2025 700-580I-0 5U / / [id number] Insurance Member Subscriber Plan / Payer (Ef fective 2022-Present) Name:Maday Barlow Relation to Subscriber:Self Name:Maday Barlow Payer ID:[id number] ([facility]) Type:[facility] MED[facility] Address: [facility] [address] [place] [address] IDPA [facility] MEDICARE ADVANTAGE [facility] MEDICARE ADVANTAGE IDPA Advance Directives For more information, please contact: [phone] Documents on File Type Date Recorded Patient Data Management Manager Expl anation ADVANCE DIRECTIVE 03/28/2023 6:37 [...] 8:05 PM 02/12/2018 10:08 PM Care Teams Db2 Dba Relationship Specialty Start Date End Date Irwin Vega MD [address] [address] PCP - General 02/08/11
--- OUTSIDE RECORDS SUMMARY | 2024-11-26 15:08 | XMS_ITS | Encounter Summary ---
Author Organization [facility] Address [address] [place] [address] Care Team Providers Care Take Up Operator Name Role Phone Irwin Vega MD Primary Care Provider [phone] Encounter Details Date Type Department Care Team (Late st Contact Info) Description 07/16/2019 Lab Requisition [facility] DermPath Lab [address] [facility] [place] [address] [place] [address] Social History Tobacco Use Types Packs/Day Years Used Date Smoking Tobacco: Never Assessed Comments Unknown Sex and Gender Information Value Date Recorded Sex Assigned at Not on file Legal Sex Female 7:26 PM REFRIGERATION REPAIR SUPERVISOR Gender Identity Not on file Sexual Orientation Not on file documented as of this encounter Plan of Treatment Not on file documented as of this encounter Procedures Procedure Name Priority Date/Time Associated Diagnosis Comments DERMATOPATHOLOGY Routine 07/15/2019 12:0 0 AM REFRIGERATION REPAIR SUPERVISOR documented in this encounter Results * DERMATOPATHOLOGY (07/15/2019 12:00 AM REFRIGERATION REPAIR SUPERVISOR) Case Report Dermatopathology Report Case: [id number] Authorizing Provider: Cisco Salinas MD Collected: 07/15/2019 12:00 AM Ordering Location: [facility] DermPath Lab Received: 07/16/2019 01:19 PM Pathologist: Roberto Ly MD Specimens: A) - Skin, left medial ankle B) - Skin, right upper back 0 11:37 AM REFRIGERATION REPAIR SUPERVISOR DERMATOPATHOLOGY LABORATORY Final Diagnosis Specimen A. 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 0 11:37 AM [facility] DERMATOPATHOLOGY LABORATORY Gross Description Specimen A: Received is one formalin filled container labeled with the patient's name and designated left medial ankle. The specimen consists of a shave biopsy measuring 8h0m6uh. Jar 0. Specimen B: Received is one formalin filled container labeled with the patient's name and designated right upper back. The specimen consists of a punch biopsy measuring [id number] bisected. Jar 0. 0 11:37 AM [facility] DERMATOPATHOLOGY LABORATORY Microscopic Description Specimen [...] See direct immunofluorescence results. 0 11:37 AM [facility] DERMATOPATHOLOGY LABORATORY Disclaimer An external and internal positive and negative controls are appropriate for the histochemical, immunohistochemical and immunofluorescence stain(s) in this case (if any), except where stated explicitly. The performance characteristics of the stain(s) cited in this report were developed and its performance characteristic determined by the Dermatopathology Laboratory at [facility], directed by Dr. Teressa Ly. These tests need not be, and therefore are not, approved by the [place] Food and Drug Administration. The tests are used for clinical purposes. Billing Codes Specimen Charges Stain Charges 07079 59566 1 1 0 11:37 AM REFRIGERATION REPAIR SUPERVISOR DERMATOPATHOLOGY LABORATORY Embedded Images 0 11:37 AM REFRIGERATION REPAIR SUPERVISOR DERMATOPATHOLOGY LABORATORY Pathology/Cytology TISSUE SPECIMEN FROM SKIN / Unknown 07/15/2019 07/16/2019 1:19 PM REFRIGERATION REPAIR SUPERVISOR Miscellaneous samples (specimen) TISSUE SPECIMEN FROM SKIN / Unknown 07/15/2019 07/16/2019 1:19 PM REFRIGERATION REPAIR SUPERVISOR Cisco Salinas MD LAB - PATHOLOGY/CYTOLOGY ORD ERABLES Final Result DERMATOPATHOLOGY LABORATORY [facility] - Department of Dermatology [address] [place] [address] [address] Floor Lab [address] [phone] documented in this encounter Visit Diagnoses Not on filedocumented in this encounter Care Teams Take Up Operator Relationship Specialty Start Date End Date Irwin Vega MD PCP - General 12/21/14 documented as of this encounter
[2024-11-26 15:15] LABS: Basophils Percent Auto 0.2 % (0.2-1.2); Eosinophils Percent Auto 0.1 % (0-4.4); Hematocrit 33.1 % (37.0-47.0); Hemoglobin 10.6 g/dL (12.0-15.0); Immature Granulocyte Absolute 0.08 K/mm3 (0.00-0.031); Immature Granulocyte Percent A 0.6 % (0-0.5); Lymphocytes Absolute Auto 0.56 K/mm3 (0.9-3.2); Lymphocytes Percent Auto 4.4 % (18.3-44.2); Mean Corpuscular Hemoglobin 29.9 pg (26-34); Mean Corpuscular Volume 93.2 fl (80-100); Mean Platelet Volume 10.3 fl (7.4-10.4); Monocytes Absolute Auto 1.1 K/mm3 (0.1-0.6); Monocytes Percent Auto 8.2 % (2.6-8.5); Neutrophils Absolute Auto 11.1 K/mm3 (1.3-6.7); Neutrophils Percent Auto 86.5 % (45.5-73.1); Platelet Count Result 241 k/mm3 (150-375); Red Blood Count 3.55 M/mm3 (4.2-5.4); White Blood Count 12.9 K/mm3 (4.5-10.0)
[2024-11-26 15:24] LABS: Lactic Acid Reflex 1.4 mmol/L (0.7-2.0)
[2024-11-26 15:25] LABS: Magnesium 1.7 mg/dL (1.6-2.3)
[2024-11-26 15:25] LABS: Alanine Aminotransferase 36 U/L (6-35); Albumin Level 3.4 g/dL (3.5-5.1); Alkaline Phosphatase 91 U/L (38-126); Anion Gap 3 mmol/L (4-12); Aspartate Amino Transferase 61 U/L (14-36); Bilirubin,Total 0.7 mg/dL (0.2-1.3); Blood Urea Nitrogen 13 mg/dL (7-17); Calcium 10.2 mg/dL (8.4-10.2); Carbon Dioxide 33 mmol/L (22-30); Chloride 93 mmol/L (98-107); Estimated CRCL calculation 61 ml/min; Estimated Glomerular Filt Rate > 60; Glucose 124 mg/dL (65-110); Potassium 3.3 mmol/L (3.4-5.0); Sodium 129 mmol/L (137-145)
[2024-11-26 15:28] LABS: INR 1.3
[2024-11-26 15:29] LABS: Partial Thromboplastin Time 37.5 Seconds (22.3-36.8)
[2024-11-26 15:36] LABS: Add Urine Microscopic? NO; Appearance Urine Clear (Clear); Bilirubin Urine Negative (Negative); Blood Urine Negative (Negative); Color Urine Yellow (Yellow); Glucose Urine UA Negative (Negative); Ketones Urine Negative (Negative); Leukocyte Esterase Ur Negative LEU/UL (Negative); Nitrate Urine Negative (Negative); Protein Urine Negative (Negative); Specific Grav Ur 1.007 (1.001-1.035)
[2024-11-26 15:36] LABS: NT Pro B Type Natriuretic Pept 5290 pg/mL (19.9-100)
[2024-11-26 15:38] LABS: Troponin I < 0.012 ng/mL (0.000-0.034)
[2024-11-26 15:43] LABS: Procalcitonin 1.4 ng/mL
[2024-11-26] MEDS: MAGNESIUM SULF 1 GM/D5W 100 ML 1 GM/100 ML BAG IVPB (17:12)
--- NOTE | 2024-11-26 17:53 | ECG_ITS ---
Test Date: 2024-11-26 18:05:22 Measurements Intervals [place] Rate: 86 P: 0 [place]: 0 QRS: -14 QRSD: 84 T: 47 QT: 333 QTc: 400 Interpretive Statements ATRIAL FIBRILLATION ANTEROSEPTAL MYOCARDIAL INFARCTION , OF INDETERMINATE AGE [40+ ms Q WAVE IN V1-V4] Compared to ECG 11/26/2024 12:47:45 RAPID VENTRICULAR RESPONSE NO LONGER PRESENT Electronically Signed On 11-27-2024 11:10:14 CDT by Aydee Yi M.D.
[2024-11-26 18:37] LABS: Troponin I < 0.012 ng/mL (0.000-0.034)
== END 2024-11-26 19:27 | disposition home or self-care (01) ==
PROVIDERS: Physician Assistant; Emergency Provider Emergency Medicine; PCP Family Medicine
DX: I11.0 Hypertensive heart disease with heart failure (principal); I50.9 Heart failure, unspecified; S00.83XA Contusion of other part of head, initial encounter; I48.91 Unspecified atrial fibrillation; E03.9 Hypothyroidism, unspecified; E11.69 Type 2 diabetes mellitus with other specified complication; E78.5 Hyperlipidemia, unspecified; I15.2 Hypertension secondary to endocrine disorders; E11.42 Type 2 diabetes mellitus with diabetic polyneuropathy; E11.319 Type 2 diabetes mellitus with unspecified diabetic retinopathy without macular edema; E11.51 Type 2 diabetes mellitus with diabetic peripheral angiopathy without gangrene; I73.9 Peripheral vascular disease, unspecified; F32.A Depression, unspecified; Z98.1 Arthrodesis status; Z96.653 Presence of artificial knee joint, bilateral; Z86.16 Personal history of COVID-19; Z87.891 Personal history of nicotine dependence; Z90.711 Acquired absence of uterus with remaining cervical stump; Z79.01 Long term (current) use of anticoagulants; Z79.84 Long term (current) use of oral hypoglycemic drugs; Z79.899 Other long term (current) drug therapy; R94.31 Abnormal electrocardiogram [ECG] [EKG]; W19.XXXA Unspecified fall, initial encounter
CPT/HCPCS: 36415; 70450; 71045; 72125; 80053; 81003; 83605; 83735; 83880; 84145; 84484; 85025; 85610; 85730; 93005; 93970; 96365; 99284; J3475

== ENCOUNTER 2025-03-19 11:48 | Inpatient (IN) | payer MEDICARE, MEDICAID, SELFPAY ==
[2025-03-19] VITALS (16 sets, daily range): BP systolic 130–185; BP diastolic 75–101; PULSE 81–130; RESP 16–28; TEMP 36.7–37; O2SAT 72–99; BMI 23.2
--- NOTE | ~2025-03-19 | XR_ITS ---
EXAMINATION: XR chest 2V DATE: 03/19/2025 14:35 INDICATION: Weakness TECHNIQUE: frontal and lateral views of the chest were obtained. COMPARISON: Chest radiograph dated 11/26/2024 FINDINGS: Mild blunting at the bilateral costophrenic angles and posterior sulci consistent with small bilateral pleural effusions. Minimal reticular opacities at the bilateral posterior lung bases which could represent atelectasis, mild pulmonary edema or less likely pneumonia. No pneumothorax. Cardiomegaly. Aortic valve replacement. Cholecystectomy clips in the upper abdomen. Postoperative changes of instrumented posterior spinal fusion in the and cervical and lumbar spine. Intrathecal pain pump projecting over the left abdomen with distal tip of the intrathecal catheter projecting over the central canal at the level of T7- T8. Bilateral rotator cuff arthropathy. IMPRESSION: 1. Very small bilateral pleural effusions with dependent bibasilar atelectasis, mild pulmonary edema or less likely pneumonia. Reviewed, dictated and finalized at location A.
--- NOTE | ~2025-03-19 | CT_ITS ---
EXAMINATION: CTA brain carotid DATE: 03/20/2025 11:53 INDICATION: Dizziness. TECHNIQUE: Computed tomographic angiography (CTA) of the head was performed without and with 100 mL Omnipaque-350 intravenous contrast. CTA of the neck was performed with intravenous contrast. Automated exposure control and iterative reconstruction technique were employed. The dose-length product was 1670.65 mGy- cm. Maximum intensity projection and volume rendered 3D-reconstructions were created by the technologist on a separate workstation. COMPARISON: Head CT 11/26/2024 FINDINGS: HEAD CTA: There is an old infarct in the right cerebellum. There are old infarcts in the bilateral basal ganglia. There are scattered areas of low attenuation in the cerebral white matter. There is no intracranial hemorrhage, acute infarction, or abnormal intracranial mass lesion. There is an old infarct in the right thalamus. The ventricles are normal in size. The paranasal sinuses are clear. There are likely changes of right ocular lens replacement surgery. The mastoid air cells are normal. The vertebral arteries are codominant. There is no significant stenosis of basilar artery or the posterior cerebral arteries. There is no significant stenosis of the intracranial internal carotid arteries or anterior or middle cerebral arteries. Anterior communicating artery is normal. The posterior communicating arteries are normal. There is an infundibulum at right posterior communicating artery. There is no aneurysm. NECK CTA: There are small pleural effusions. There are nodules in the thyroid measuring up to 5 mm, likely not clinically significant. There are no pathologically enlarged lymph nodes. There is no significant stenosis of the vertebral arteries. There is mild plaque in the proximal internal carotid elie michelle. There is 0% stenosis of the proximal right internal carotid artery relative to normal distal artery lumen diameter (NASCET criteria). There is 0% stenosis of the proximal left internal carotid artery relative to normal distal artery lumen diameter. There is severe thoracic spondylosis. There are changes of anterior and posterior fusion procedures in cervical spine. IMPRESSION: 1. 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 2. Moderate nonspecific cerebral white matter disease, which likely represents chronic small vessel ischemic disease. 3. No aneurysm or significant intracranial arterial stenosis. 4. 0% stenosis of the proximal internal carotid arteries relative to normal distal artery lumen diameters (NASCET criteria). Reviewed, dictated and finalized at location E. IMPRESSION: 1. Old infarcts involving the right cerebellum, right thalamus, and bilateral b beto ganglia. 2. Moderate nonspecific cerebral white matter disease, which likely represents chronic small vessel ischemic disease. 3. No aneurysm or significant intracranial arterial stenosis. 4. 0% stenosis of the proximal internal carotid arteries relative to normal dis christin artery lumen diameters (NASCET criteria).
--- NOTE | 2025-03-19 13:50 | ECG_ITS ---
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
[2025-03-19 14:10] LABS: Hematocrit 36.0 % (37.0-47.0); Hemoglobin 11.1 g/dL (12.0-15.0); Immature Granulocyte Percent A 0.7 % (0-0.5); Lymphocytes Absolute Auto 0.92 K/mm3 (0.9-3.2); Mean Corpuscular HGB Conc 30.8 g/dl (32-36); Mean Corpuscular Hemoglobin 26.4 pg (26-34); Mean Corpuscular Volume 85.5 fl (80-100); Nucleated Red Blood Cells Absolute Auto 0.000 K/mm3 (0.0-0.012); Nucleated Red Blood Cells Perc 0.0 % (0.0-0.2); Platelet Count Result 375 k/mm3 (150-375); Red Blood Count 4.21 M/mm3 (4.2-5.4); White Blood Count 21.0 K/mm3 (4.5-10.0)
--- OUTSIDE RECORDS SUMMARY | 2025-03-19 14:36 | XMS_ITS | Encounter Summary ---
Author Organization [facility] Address [address] [place] [address] Care Team Providers Care Carpet Layer Helper Name Role Phone Irwin Vega MD Primary Care Provider [phone] Encounter Details Date Type Department Care Team (Late st Contact Info) Description 01/30/2018 Lab Requisition [facility] [address] [place] [address] Cisco Salinas MD [address] [place] [address] Social History Tobacco Use Types Packs/Day Years Used Date Smoking Tobacco: Never Assessed Comments Unknown Sex and Gender Information Value Date Recorded Sex Assigned at Not on file Legal Sex Female 7:26 PM HEAD OF MERCHANDISE BUYING Gender Identity Not on file Sexual Orientation Not on file documented as of this encounter Plan of Treatment Not on file documented as of this encounter Procedures Procedure Name Priority Date/Time Associated Diagnosis Comments DERMATOPATHOLOGY Routine 01/29/2018 12:0 0 AM CDT documented in this encounter Results * DERMATOPATHOLOGY (01/29/2018 12:00 AM CDT) Case Report Dermatopathology Report Case: [id number] Authorizing Provider: Cisco Salinas MD Collected: 01/29/2018 [...] characteristic determined by the Dermatopathology Laboratory at [facility]. These tests need not be, and therefore are not, approved by the [place] Food and Drug Administration. The tests are used for clinical purposes. Billing Codes Specimen Charges Stain Charges 98613 1 3:42 PM CDT DERMATOPATHOLOGY LABORATORY Embedded Images 3:42 PM CDT DERMATOPATHOLOGY LABORATORY Pathology/Cytolog y TISSUE SPECIMEN FROM SKIN / Unknown 01/29/2018 01/30/2018 11:31 AM CDT us Cisco Salinas MD LAB - PATHOLOGY/CYTOLOGY ORD ERABLES Final Result DERMATOPATHOLOGY LABORATORY [facility] - Department of Dermatology [address] [place] [address], 5th [place] [address], [facility] [phone] documented in this encounter Visit Diagnoses Not on filedocumented in this encounter Care Teams Carpet Layer Helper Relationship Specialty Start Date End Date Irwin Vega MD PCP - General 12/21/14 documented as of this encounter
--- OUTSIDE RECORDS SUMMARY | 2025-03-19 14:36 | XMS_ITS | Encounter Summary ---
Author Organization [facility] Address [address] [place] [address] Care Team Providers Care Manager Plant Name Role Phone Irwin Vega MD Primary Care Provider [phone] Encounter Details Date Type Department Care Team (Late st Contact Info) Description 07/16/2019 Lab Requisition [facility] Lab [address] [place] [address] Cisco Salinas [place] [address] Social History Tobacco Use Types Packs/Day Years Used Date Smoking Tobacco: Never Assessed Comments Unknown Sex and Gender Information Value Date Recorded Sex Assigned at Not on file Legal Sex Female 7:26 PM FLEET TECHNICIAN Gender Identity Not on file Sexual Orientation Not on file documented as of this encounter Plan of Treatment Not on file documented as of this encounter Procedures Procedure Name Priority Date/Time Associated Diagnosis Comments IMMUNOFLUORESCENT STUDY DERM Routine 07/15/2019 12:00 AM FLEET TECHNICIAN documented in this encounter Results * IMMUNOFLUORESCENT STUDY DERM (07/15/2019 12:00 AM FLEET TECHNICIAN) Case Report Dermatopathol ogy Report Case: [id number] Authorizing Provider: Cisco Salinas MD Collected: 07/15/2019 12:00 AM Ordering Location: [facility] Received: 07/16/2019 01:20 PM Pathologist: Roberto Ly MD Specimen: Skin, right upper back perilesional 0 11:38 AM FLEET TECHNICIAN DERMATOPATHOLOGY LABORATORY Final Diagnosis Specimen A. SKIN, right upper back perilesional: COLLOID BODIES (L98.9) (see microscopic description) (see fixed tissue results [id number]) 0 11:38 AM [facility]MAT[facility]ORAT[facility] at [address] FLEET TECHNICIAN Direct Immunofluorescence Report - Specimen A Specimen A IgA IgM IgG C3 CollV Fibrinogen Epidermis Negative Negative Negative Negative Negative Negative Basement Membrane Negative Negative Negative Negative 2+ Negative Vessels Negative Negative Negative Negative 2+ Negative Interstitium Colloid Colloid Negative Colloid Negative Non specific 0 11:38 AM [facility] DERMAT[facility]Y [facility]ORY Clinical History R/O Dermatitis,ps oriasis,eczem a. 0 11:38 AM [facility]ERMAT[facility]ORY Gross Description Specimen A: Received is one Nirav's media filled container labeled with the patient's name and designated right upper back perilesional. The specimen consists of a punch biopsy measuring [id number]. The specimen is submitted in whole for direct immunofluores cence testing. 0 11:38 AM [facility] DERMATOPATH[facility]Y [facility]ORATORY Microscopic [...] See fixed tissue results. 0 11:38 AM [facility] DERMAT[facility]ATH[facility]ORATORY Disclaimer An external and internal positive and negative controls are appropriate for the histochemical , immunohistoch emical and immunofluores cence stain(s) in this case (if any), except where stated explicitly. The performance characteristi cs of the stain(s) cited in this report were developed and its performance characteristi c determined by the Dermatopathol ogy Laboratory at [facility], directed by Dr. Teressa Ly. These tests need not be, and therefore are not, approved by the [place] Food and Drug Administratio n. The tests are used for clinical purposes. Billing Codes Specimen Charges Stain Charges 80174 02630 79918 68695 [id number] [id number] 1 1 1 1 1 1 0 11:38 AM FLEET TECHNICIAN DERMATOPATHOLOGY LABORATORY Embedded Images 0 11:38 AM FLEET TECHNICIAN DERMATOPATHOLOGY LABORATORY Pathology/Cytolog y TISSUE SPECIMEN FROM SKIN / Unknown 07/15/2019 07/16/2019 1:20 PM FLEET TECHNICIAN Cisco Salinas MD LAB - PATHOLOGY/CYTOLOGY ORD ERABLES Final Result DERMATOPATHOLOGY LABORATORY [facility] - Department of Dermatology [address] [place] [address] 5th Floor Lab [address] [phone] documented in this encounter Visit Diagnoses Not on filedocumented in this encounter Care Teams Manager Plant Relationship Specialty Start Date End Date Irwin Vega MD PCP - General 12/21/14 documented as of this encounter
--- OUTSIDE RECORDS SUMMARY | 2025-03-19 14:36 | XMS_ITS | Clinical Summary ---
Author Organization [facility] Address [address] [place] [address] Care Team Providers Care Entry Level Programmer Name Role Phone Irwin Vega MD Primary Care Provider [phone] Source Comments [facility],non-owned Affiliates and Associated Physician Practices is amultiple site organization consisting of ambulatory clinics and hospital sitesin [place], [place], [place] and [place]. This disclosure is being madepursuant to the Care Everywhere program and may not contain all information available regarding this patient. Last updated 18.[facility] [employer] Social History Tobacco Use Types Packs/Day Years Used Date Smoking Tobacco: Never Assessed Comments Unknown Sex and Gender Information Value Date Recorded Sex Assigned at Not on file Legal Sex Female 7:26 PM SPRING TACKER Gender Identity Not on file Sexual Orientation Not on file Plan of Treatment Health Maintenance Due Date Last Done Comments BONE DENSITY TESTING 1941 DTAP/TDAP/TD VACCINES (1 - Tdap) 1960 PNEUMOCOCCAL VACCINE 50+ (1 of 1 - PCV) 1991 ZOSTER VACCINE (1 of 2) 1991 Respiratory Syncytial Virus (RSV) Vaccine Pt: or over 60 yrs (1 - 1-dose 75+ series) 2016 DEPRESSION SCREENING 07/01/2024 COVID-19 VACCINE ( - 2023-2 5 season) 2025 INFLUENZA VACCINE (#1) 2025 HEPATITIS B VACCINE Aged Out No [...] age to complete this topic Insurance MEDICARE [facility] Care Teams Entry Level Programmer Relationship Specialty Start Date End Date Irwin Vega MD PCP - General 12/21/14
--- OUTSIDE RECORDS SUMMARY | 2025-03-19 14:36 | XMS_ITS | Encounter Summary ---
Author Organization [facility] Address [address] [place] [address] Care Team Providers Care Studio Sales Associate Name Role Phone Irwin Vega MD Primary Care Provider [phone] Encounter Details Date Type Department Care Team (Late st Contact Info) Description 05/30/2023 Orders Only [facility] [address] [place] [id number] Scanning, Provider Social History Tobacco Use Types Packs/Day Years Used Date Smoking Tobacco: Former Cigarettes 968 1997 Smokeless Tobacco: Never Alcohol Use Standard Drinks/Week Comments No 0 (1 standard drink = 0.6 oz pur e alcohol) PHQ-2 Answer Date Recorded PHQ-2 Score 6 02/21/2019 Comments No Sex and Gender Information Value Date Recorded Sex Assigned at Not on file Legal Sex Female 1:54 AM WATER INSPECTOR Gender Identity Not on file Sexual Orientation Not on file documented as of this encounter Plan of Treatment Not on file documented as of this encounter Procedures Procedure Name Priority Date/Time Associated Diagnosis Comments SCAN - LABS 05/30/2023 documented in this encounter Results * SCAN - LABS (05/30/2023) us Provider Scanning Final Result documented in this encounter Visit Diagnoses Not on filedocumented in this encounter Care Teams Studio Sales Associate Relationship Specialty Start Date End Date Irwin Vega MD [address] [address] PCP - General 02/08/11 documented as of this encounter
--- OUTSIDE RECORDS SUMMARY | 2025-03-19 14:36 | XMS_ITS | Encounter Summary ---
Author Organization [facility] Address [address] [place] [address] Care Team Providers Care Barrel Endshaker Adjuster Name Role Phone Irwin Vega MD Primary Care Provider [phone] Encounter Details Date Type Department Care Team (Late st Contact Info) Description 07/16/2019 Lab Requisition [facility] Lab [address] [facility] [place] [address] Cisco [place] [address] Social History Tobacco Use Types Packs/Day Years Used Date Smoking Tobacco: Never Assessed Comments Unknown Sex and Gender Information Value Date Recorded Sex Assigned at Not on file Legal Sex Female 7:26 PM CUSTOMS COMPLIANCE MANAGER Gender Identity Not on file Sexual Orientation Not on file documented as of this encounter Plan of Treatment Not on file documented as of this encounter Procedures Procedure Name Priority Date/Time Associated Diagnosis Comments DERMATOPATHOLOGY Routine 07/15/2019 12:0 0 AM CUSTOMS COMPLIANCE MANAGER documented in this encounter Results * DERMATOPATHOLOGY (07/15/2019 12:00 AM CUSTOMS COMPLIANCE MANAGER) Case Report Dermatopathology Report Case: [id number] Authorizing Provider: Cisco Salinas MD Collected: 07/15/2019 12:00 AM Ordering Location: [facility] Lab Received: 07/16/2019 01:19 PM Pathologist: Roberto Ly MD Specimens: A) - Skin, left medial ankle B) - Skin, right upper back 0 11:37 AM CUSTOMS COMPLIANCE MANAGER DERMATOPATHOLOGY LABORATORY Final Diagnosis Specimen A. 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 SKIN, right upper back: URTICARIA, CONSISTENT WITH (L50.9) (see direct immunofluorescence results [id number]) 0 11:37 AM [facility] at [address] CUSTOMS COMPLIANCE MANAGER Clinical History A-B: R/O Dermatitis, psoriasis, eczema. 0 11:37 AM [facility] Gross Description Specimen A: Received is one formalin filled container labeled with the patient's name and designated left medial ankle. The specimen consists of a shave biopsy measuring [id number]. Jar 0. Specimen B: Received is one formalin filled container labeled with the patient's name and designated right upper back. The specimen consists of a punch biopsy measuring 1p0n4um bisected. Jar 0. 0 11:37 AM [facility] Microscopic Description Specimen A. SKIN, [...] See direct immunofluorescence results. 0 11:37 AM [facility] Disclaimer An external and internal positive and negative controls are appropriate for the histochemical, immunohistochemical and immunofluorescence stain(s) in this case (if any), except where stated explicitly. The performance characteristics of the stain(s) cited in this report were developed and its performance characteristic determined by the Dermatopathology Laboratory at [facility], directed by Dr. Teressa Ly. These tests need not be, and therefore are not, approved by the [place] Food and Drug Administration. The tests are used for clinical purposes. Billing Codes Specimen Charges Stain Charges 63291 16703 1 1 0 11:37 AM CUSTOMS COMPLIANCE MANAGER DERMATOPATHOLOGY LABORATORY Embedded Images 0 11:37 AM CUSTOMS COMPLIANCE MANAGER DERMATOPATHOLOGY LABORATORY Pathology/Cytology TISSUE SPECIMEN FROM SKIN / Unknown 07/15/2019 07/16/2019 1:19 PM CUSTOMS COMPLIANCE MANAGER Miscellaneous samples (specimen) TISSUE SPECIMEN FROM SKIN / Unknown 07/15/2019 07/16/2019 1:19 PM CUSTOMS COMPLIANCE MANAGER Cisco Salinas MD LAB - PATHOLOGY/CYTOLOGY ORD ERABLES Final Result DERMATOPATHOLOGY LABORATORY [facility] - Department of Dermatology [address] [place] [address] 5th Floor Lab [address] [phone] documented in this encounter Visit Diagnoses Not on filedocumented in this encounter Care Teams Barrel Endshaker Adjuster Relationship Specialty Start Date End Date Irwin Vega MD PCP - General 12/21/14 documented as of this encounter
--- OUTSIDE RECORDS SUMMARY | 2025-03-19 14:36 | XMS_ITS | Clinical Summary ---
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 Arthritis Osteoporosis Type 2 diabetes mellitus Anxiety Anemia Cancer (HCC) skin cancer Family History Medical History Relation Name Comments Cancer Father Heart disease Father Cancer Mother Heart disease Mother Relation Name Status Comments Father (Age 86) bladder ca ncer Mother (Age 90) breast can cer Social History Tobacco Use Types Packs/Day Years Used Date Smoking Tobacco: Former Cigarettes 2 30 1 [id number] Smokeless Tobacco: Never Alcohol Use Standard Drinks/Week Comments No 0 (1 standard drink = 0.6 oz pur e alcohol) [facility] Utilities Answer Date Recorded In the past 12 months has [employer], gas, oil, or water [employer] threatened to shut off services in your home? No 06/11/2023 Social Connection and Isolation Panel Answer Date Recorded In a typical week, how many times do you talk on the phone with family, friends, or neighbors? More than three times a week 06/11/2023 How often do you get togethe r with friends or relatives? More than three times a week 06/11/2023 How often do you attend [facility] or gnosticism services? Never 06/11/2023 Do you belong to any clubs o r organizations such as yarsanism groups, unions, fraternal or athletic groups, or [...] place to sleep or slept in a prison (including now)? No 06/11/2023 Personal Safety Answer Date Recorded Have you ever been in or are you currently in a harmful physical or emotional relationship or is someone making you feel afraid or unsafe? Denies 06/10/2023 Comments No Sex and Gender Information Value Date Recorded Sex Assigned at Not on file Legal Sex Female 1:54 AM MACHINE CANDLE MOLDER Gender Identity Not on file Sexual Orientation Not on file Obstetrics History Last Filed Vital Signs Vital Sign Reading Time Taken Comments Blood Pressure 130/78 10/21/2023 10:08 AM CDT Pulse 80 10/21/2023 10:08 AM CDT Temperature 36.9 C (98.4 F) 06/11/2023 12:19 PM MACHINE CANDLE MOLDER Respiratory Rate 18 06/11/2023 12:19 PM MACHINE CANDLE MOLDER Oxygen Saturation 97% 10/21/2023 10:08 AM CDT [...] 2006 Depression Screening 03/06/2019 03/06/2018, 03/06/20 18 Fall Risk Assessment 06/11/2024 06/11/2023 Covid-19 Vaccine (2024-08 6 season) 2025 05/17/2021, 10/10/2020, 09/19/2020 Influenza Vaccine (#1) 2025 , 03/04/2018, 06/13/2016, Additional history exists DTaP/Tdap/Td Vaccine (2 - Td or Tdap) 11/07/2030 11/07/2020 Pneumococcal vaccine 65+ Completed 03/04/2018, 05/31 Zoster Vaccine Completed 04/21/2020, 12/31, 07/15/2013 Medical Devices Implanted Type Area Member Service Specialist Device Identifier Shelf Expiration Date Model / Serial / Lot Medtronic Inc 8780 Ascenda 4fr .5mm 114cm 86cm 2 Piece Connector Pin Flexible Closed - [id number] Implanted:Qty: 1 on 01/17/2021 by He Sorenson MD at [facility] Left: Back Medtronic Inc 12/05/2022 8780 / / [id number] Medtronic Neuro 8637-20 Synchromed Ii .78in [place] Filter Mesh Pouch Programmable - [id number] - [id number] Implanted:Qty: 1 on 01/17/2021 by He Sorenson MD at [facility] Left: Back Medtronic Inc 04/27/2022 8637-20 / [id number] / [id number] (powering [employer] Device Closure Vascade Od5 Fr Femoral Artery [id number] - [id number] Implanted:Qty: 1 on 03/27/2023 by Dimitri Garner MD at [facility] Medical [facility] 12/24/2024 [id number] / / [id number] [employer] Kit Valve Coronary Aortic Tissue Ramsey 3 Ultra 23mm [id number] - [id number] - [id number] Implanted:Qty: 1 on 06/10/2023 by Dimitri Garner MD at [facility] [employer] 03/05/2026 [id number] / [id number] / [employer] Device Clsr Perclose Prostyle Sut-Mediatd Closure-Repair Sys 34405-16 - [id number] Implanted:Qty: 1 on 06/10/2023 by Dimitri Garner MD at [facility] [employer] 02/28/2025 1 [id number] / / [id number] [employer] Device Clsr Perclose Prostyle Sut-Mediatd Closure-Repair Sys 40609-22 - [id number] Implanted:Qty: 1 on 06/10/2023 by Dimitri Garner MD at [facility] [employer] 01/28/2025 1 [id number] / / [id number] [employer] Inc Device Vascular Closure Femoral Artery Bioabsorbable Dual Method Vascade 6-7fr Collagen [id number] - [id number] Implanted:Qty: 1 on 06/10/2023 by Dimitri Garner MD at [facility] [employer] 02/07/2025 [id number] / / [id number] Insurance [facility] MEDICARE ADVANTAGE IDPA [facility] MEDICARE ADVANTAGE [facility] MEDICARE ADVANTAGE IDPA Advance Directives For more information, please contact: [phone] Documents on File Type Date Recorded Patient Extension Course Counselor Expl anation ADVANCE DIRECTIVE 03/28/2023 6:37 PM [...] 8:05 PM 02/12/2018 10:08 PM Care Teams Trauma Counsellor Relationship Specialty Start Date End Date Irwin Vega MD [address] [address] PCP - General 02/08/11
[2025-03-19 14:40] LABS: Alanine Aminotransferase 16 U/L (6-35); Albumin Level 3.6 g/dL (3.5-5.1); Alkaline Phosphatase 115 U/L (38-126); Anion Gap 4 mmol/L (4-12); Aspartate Amino Transferase 37 U/L (14-36); Bilirubin,Total 0.7 mg/dL (0.2-1.3); Blood Urea Nitrogen 14 mg/dL (7-17); Calcium 10.3 mg/dL (8.4-10.2); Carbon Dioxide 31 mmol/L (22-30); Chloride 97 mmol/L (98-107); Estimated CRCL calculation 54 ml/min; Estimated Glomerular Filt Rate > 60; Glucose 120 mg/dL (65-110); Sodium 132 mmol/L (137-145); Total Protein 6.3 g/dL (6.3-8.2)
[2025-03-19 14:56] LABS: Potassium 4.2 mmol/L (3.4-5.0)
[2025-03-19 15:44] LABS: Add Urine Microscopic? YES; Appearance Urine Turbid (Clear); Glucose Urine UA Negative (Negative); Leukocyte Esterase Ur Negative LEU/UL (Negative); Nitrate Urine Negative (Negative); Non Pathogenic Casts 0-2; Specific Grav Ur 1.015 (1.001-1.035)
--- NOTE | 2025-03-19 15:53 | ED_ITS ---
HPI - General Adult General Chief complaint: Weakness Stated complaint: weak, faint, want to pass out, infection x months Time Seen by Provider: 03/19/25 14:28 History of Present Illness HPI narrative: 84-year-old female presents emergency department for evaluation for worsening weakness lightheadedness dizziness and lower extremity rash. Patient reports she has had an intermittent rash in her lower extremities for the last few months. Patient reports she did get treated with antibiotics few months ago and did improve significantly but has persisted. Patient has also had intermittent symptoms of painful urination but denies any painful urination now. Patient denies any recent falls or injuries. Patient does have history of allergies to oxycodone but denies any antibiotic allergies. Patient does have history of smoking but quit about 20 years ago. Related Data Home Medications ?Medication ?Instructions ?Recorded ?Confirmed ?Last Taken ?Type bimatoprost 0.01 % eye drops 1 drop ophthalmic (eye) D AILY 05/07/19 02/01/25 Unknown History (Desire) biotin 10,000 mcg capsule 10,000 mcg PO DAILY 05/07/19 02/01/25 Unknown History dorzolamide 2 % eye drops 1 drop ophthalmic (eye) BID 05/07/19 02/01/25 Unknown History melatonin 10 mg tablet 10 mg PO DAILY PRN Insomnia 05/07/19 02/01/25 Unknown History multivitamin 1 cap PO DAILY 05/07/1910/23 Unknown History clobetasol 0.05 % topical ointment 1 applic topical BI D PRN rash 12/11/22 02/01/25 Unknown History apixaban 2.5 mg tablet (Eliquis) 2.5 mg PO BID 3 02/01/25 Unknown History Allergies Allergy/AdvReac Type Severity Reaction Status Date / Time nickel Allergy Intermediate RASH Verified 11/26/24 15:11 oxycodone Allergy Intermediate HALLUCINATE Verified 11/26/24 15:11 S Review of Systems 2 Review of Systems: All systems reviewed & are unremarkable except as noted in HPI and below [facility] Past Medical History Medical History (Updated 03/19/25 @ 18:46 by Clement Anders MD) Type 2 diabetes mellitus without complications glucose 89 and hemoglobin A1c 6.2 on 05/15/2021. Fasting glucose 102 with hemoglobin A1c 5.8 on 12/04/2022. Glucose 99 with hemoglobin A1c 5.6 with microalbumin ratio 47 on 05/30/2023. Cellulitis of both lower extremities Insomnia Cellulitis of left lower extremity Bilateral lower leg cellulitis BMI 20.0-20.9, adult Body mass index [BMI] 22.0-22.9, adult BMI 21.0-21.9, adult Functional disorder of bladder Bunion of great toe of right foot At high risk for falls COVID-19 (~06/11/22) tested positive 06/11/2022. BMI 23.0-23.9, adult Chronic nonallergic rhinitis (~2021) Edema, peripheral Persistent proteinuria associated with type 2 diabetes mellitus (05/15/21) 1+ protein on urinalysis on 05/15/2021. 1+ protein on 12/04/2022. Protein is negative, urine microalbumin ratio elevated at 47 On 05/30/2023. Hypothyroidism, unspecified (05/15/21) TSH elevated at 10.0 on 05/16/2021. Previous TSH normal at 1.67 on 05/02/2021. TSH normal at 2.41 with free T4 1.54 on 12/04/2022. Hypertension associated with diabetes Hyperlipidemia associated with type 2 diabetes mellitus Frequent falls Atrial fibrillation with rapid ventricular response Syncope Laceration of occipital scalp Head injury, acute Glaucoma Diabetic peripheral neuropathy associated with type 2 diabetes mellitus Diabetic retinopathy associated with controlled type 2 diabetes mellitus Nail fungal infection Mycotic toenails Fatigue Heart murmur on physical examination Hx of urinary frequency BMI 25.0-25.9,adult Colon cancer screening Breast cancer screening by mammogram Peripheral arterial disease (09/05/20) patient had abnormal KEYA screening on 09/05/2020 with moderate decrease in the right foot and significant in the left Prurigo nodularis Chronic depression Urticaria Rotator cuff arthropathy of right shoulder Spinal stenosis Surgical History Surgical History H/O eye surgery History of bilateral knee replacement History of partial hysterectomy History of back surgery Hx of fusion of cervical spine Family History Family History Mother Patient's mother is , Onset Age: 90 Old age Heart disease Breast cancer Father Patient's father is , Onset Age: 87 Heart disease Bladder cancer Social History Social History Smoking status: Former smoker Alcohol intake: current Substance use: never Substance use type: does not use Other substance usage details: pain pump/morphine Lack of Transportation: No Lack of Food: Never True Current Housing: I Have Housing Concerned About Future Housing: No Difficulty Paying Gas/Electric Bills: No Difficulty Paying for Meds: No Currently Unemployed: No Education: High School Diploma/GED Difficulty w/ Childcare or Family Care: No Gender identity (if verbalized by the patient): Female Spiritual care concerns: No Exam 2 Narrative: APPEARANCE: Well appearing, no pain, no distress, well-nourished. HEAD: normocephalic, atraumatic. EYES: PERRLA/EOMI, conjunctivae clear. NOSE: Normal no drainage EARS:TMS clear with good light reflex. THROAT: Pharynx clear, no exudate. NECK: Supple. No adenopathy, no masses. RESPIRATORY: Airway patent, respirations nonlabored. Clear to auscultation bilaterally, no rales, rhonchi, wheezing. CARDIOVASCULAR: Regular rate and rhythm without murmurs rubs or gallops. ABDOMINAL: Soft, nontender, nondistended, normal bowel sounds MUSCULOSKELETAL: Moves all extremities. Strength/ROM intact, No edema, No calf tenderness. NEURO: Alert. Cranial nerves II through XII intact. Grossly intact SKIN: Bilateral lower extremity erythema worse on left than right Course Vital Signs Vital signs: Vital Signs Temperature 98.6 F 03/19/25 11:53 Pulse Rate 81 03/19/25 11:53 Respiratory Rate 18 03/19/25 11:53 Blood Pressure 130/75 03/19/25 11:53 Pulse Oximetry 98 03/19/25 11:53 Oxygen Delivery Room Air 03/19/25 11:53 Temperature 98.4 F 03/19/25 16:35 Pulse Rate 130 H 03/19/25 18:00 Respiratory Rate 22 H 03/19/25 18:00 Blood Pressure 185/87 H 03/19/25 18:00 Pulse Oximetry 94 03/19/25 18:00 Oxygen Delivery Room Air 03/19/25 17:56 Oxygen Flow Rate 2 03/19/25 17:12 Medical Decision Making MDM Narrative Medical decision making narrative: 84-year-old female presents emergency department for evaluation for increased generalized weakness. Patient is afebrile but does have a leukocytosis of 21,000 this atypical for the patient. Patient is hemoglobin 11.1. Patient had no significant acute abnormalities on her CMP, UA was negative for infection. Chest x-ray showed bibasilar atelectasis but no significant evidence of pneumonia. Patient has no respiratory complaints. Patient has bilateral lower extremity erythema concerning for cellulitis this is worse on the left than right but is bilateral. Patient was started on cefazolin and blood cultures were ordered. Case was discussed with hospitalist patient was accepted for admission. Patient and family strongly preferred to be admitted due to the patient having worsening generalized weakness. I did discuss outpatient options and they prefer admission. Prior to going to the floor patient did have onset of expiratory wheeze. Patient was treated with 5 mg of nebulized albuterol in the emergency department and did feel improved. Patient was able to be removed from oxygen placed back on room air was satting at 96%. Patient was [facility] to [facility] and a telemetry unit was added due to the episode of wheezing. Possible secondary to allergic reaction to the antibiotics. Patient has no rash in no prior history of allergies. Patient was also treated with a dose of IV Benadryl. Patient was well-appearing at time of admission on the floor. Floor was updated on the patient's change Differential Diagnosis Differential Diagnosis: Pneumonia, cellulitis, vasculitis, COVID, RSV, influenza, UTI Vital Signs Vital Signs: Vital Signs Temperature 98.6 F 03/19/25 11:53 Pulse Rate 81 03/19/25 11:53 Respiratory Rate 18 03/19/25 11:53 Blood Pressure 130/75 03/19/25 11:53 Pulse Oximetry 98 03/19/25 11:53 Oxygen Delivery Room Air 03/19/25 11:53 Temperature 98.4 F 03/19/25 16:35 Pulse Rate 130 H 03/19/25 18:00 Respiratory Rate 22 H 03/19/25 18:00 Blood Pressure 185/87 H 03/19/25 18:00 Pulse Oximetry 94 03/19/25 18:00 Oxygen Delivery Room Air 03/19/25 17:56 Oxygen Flow Rate 2 03/19/25 17:12 Lab Data Lab results reviewed: Yes I reviewed the patient's lab results. 03/19/25 14:03 03/19/25 14:03 Labs: Lab Results 03/19/25 03/19/25 Range/Units 14:03 15:26 WBC 21.0 H (4.5-10.0) K/mm3 RBC 4.21 (4.2-5.4) M/mm3 Hgb 11.1 L (12.0-15.0) g/dL Hct 36.0 L (37.0-47.0) % MCV 85.5 (80-100) fl MCH 26.4 (26-34) pg MCHC 30.8 L (32-36) g/dl RDW 16.8 H (11.5-14.5) % Plt Count 375 D (150-375) k/mm3 MPV 8.9 (7.4-10.4) fl Immature Gran % (Auto) 0.7 H (0-0.5) % Neut % (Auto) 88.6 H (45.5-73.1) % Lymph % (Auto) 4.4 L (18.3-44.2) % [place] % (Auto) 5.6 (2.6-8.5) % Eos % (Auto) 0.4 (0-4.4) % Baso % (Auto) 0.3 (0.2-1.2) % Lymph # (Auto) 0.92 (0.9-3.2) K/mm3 [place] # (Auto) 1.2 H (0.1-0.6) K/mm3 Eos # (Auto) 0.1 (0-0.3) K/mm3 Baso # (Auto) 0.1 (0.0-0.1) K/mm3 Abs Immat Gran (auto) 0.14 H (0.00-0.031) K/mm3 Absolute Neuts (auto) 18.6 H (1.3-6.7) K/mm3 Absolute Nucleated RBC 0.000 (0.0-0.012) K/mm3 Nucleated RBC % 0.0 (0.0-0.2) % Sodium 132 L (137-145) mmol/L Potassium 4.2 (3.4-5.0) mmol/L Chloride 97 L (98-107) mmol/L Carbon Dioxide 31 H (22-30) mmol/L Anion Gap 4 (4-12) mmol/L BUN 14 (7-17) mg/dL Creatinine 0.50 L (0.7-1.0) mg/dL Estim Creat Clear Calc 54 ml/min Estimated GFR > 60 (59 - ) Glucose 120 H (65-110) mg/dL Calcium 10.3 H (8.4-10.2) mg/dL Iron Pending TIBC 322 (261-462) ug/dL % Saturation Pending Ferritin 80.80 (11.1-264) ng/mL Total Bilirubin 0.7 (0.2-1.3) mg/dL AST 37 H (14-36) U/L ALT 16 (6-35) U/L Alkaline Phosphatase 115 (38-126) U/L NT-Pro-B Natriuret Pep 5270 H (19.9-100) pg/mL Total Protein 6.3 (6.3-8.2) g/dL Albumin 3.6 (3.5-5.1) g/dL Vitamin B12 623.0 (239-931) pg/mL Folate 12.0 (2.76->20) ng/mL TSH (Reflex) 2.160 (0.465-4.68) uIU/mL Urine Color Yellow (Yellow) Urine Appearance Turbid H (Clear) Urine pH 8.5 (5.0-9.0) Ur Specific [place] 1.015 (1.001-1.035) Urine Protein Trace (Negative) mg/dL Urine Glucose (UA) Negative (Negative) mg/dL Urine Ketones Negative (Negative) mg/dL Ur Blood (Man) Negative (Negative) Urine Nitrate Negative (Negative) Urine Bilirubin Negative (Negative) Urine Urobilinogen 1.0 (<2.0) mg/dL Leukocyte Esterase Rfl Negative (Negative) CHARLA/UL Urine RBC 3-5 H (0-2) /hpf Urine WBC 0-5 (0-3) /hpf Ur Squamous Epith Cells None seen (Few) /hpf Urine Bacteria None seen /hpf Urine Casts 0-2 Imaging Data Radiologist's impression: Impressions Chest X-Ray 03/19/25 14:42 IMPRESSION: 1. Very small bilateral pleural effusions with dependent bibasilar atelectasis, mild pulmonary edema or less likely pneumonia. Discharge Plan Discharge Clinical Impression: Leukocytosis, Cellulitis, Generalized weakness Patient Disposition: Still a Patient Condition: Stable
--- NOTE | 2025-03-19 16:10 | P.HP_ITS ---
H&P: HPI History of Present Illness Date/Time: 03/19/25 16:10 Chief Complaint: Weakness and infection Narrative: 84-year-old female past medical history of diabetes type 2, bovine valve hypothyroidism, hypertension, hyperlipidemia, frequent falls, AFib, PAD, presents the hospital with weakness in lower leg infection. She states that she was previously treated for cellulitis with antibiotics and improved however over the last few months pain and swelling has gotten worse. Patient states that she does not take her diuretics because the maker to thirsty. Denies fever chills. Lab work in ED shows leukocytosis at 21.0, hemoglobin 11.1, sodium of 132, chloride 97, carbon dioxide 31, creatinine 0.5, calcium of 10.3, urine is negative for infection, chest x-ray shows Very small bilateral pleural effusions with dependent bibasilar atelectasis, mild pulmonary edema or less likely pneumonia. EKG shows atrial fibrillation rate of 82. Patient being admitted for cellulitis started on Ancef. Review of Systems Review of Systems: 12 systems were reviewed and are negativ e except for as per HPI. [facility] Past Medical History Medical History (Updated 03/19/25 @ 18:59 by Katya Velasco, [employer]) Atrial fibrillation with rapid ventricular response Type 2 diabetes mellitus without complications glucose 89 and hemoglobin A1c 6.2 on 05/15/2021. Fasting glucose 102 with hemoglobin A1c 5.8 on 12/04/2022. Glucose 99 with hemoglobin A1c 5.6 with microalbumin ratio 47 on 05/30/2023. Cellulitis of both lower extremities Insomnia Cellulitis of left lower extremity Bilateral lower leg cellulitis BMI 20.0-20.9, adult Body mass index [BMI] 22.0-22.9, adult BMI 21.0-21.9, adult Functional disorder of bladder Bunion of great toe of right foot At high risk for falls COVID-19 (~06/11/22) tested positive 06/11/2022. BMI 23.0-23.9, adult Chronic nonallergic rhinitis (~2021) Edema, peripheral Persistent proteinuria associated with type 2 diabetes mellitus (05/15/21) 1+ protein on urinalysis on 05/15/2021. 1+ protein on 12/04/2022. Protein is negative, urine microalbumin ratio elevated at 47 On 05/30/2023. Hypothyroidism, unspecified (05/15/21) TSH elevated at 10.0 on 05/16/2021. Previous TSH normal at 1.67 on 05/02/2021. TSH normal at 2.41 with free T4 1.54 on 12/04/2022. Hypertension associated with diabetes Hyperlipidemia associated with type 2 diabetes mellitus Frequent falls Syncope Laceration of occipital scalp Head injury, acute Glaucoma Diabetic peripheral neuropathy associated with type 2 diabetes mellitus Diabetic retinopathy associated with controlled type 2 diabetes mellitus Nail fungal infection Mycotic toenails Fatigue Heart murmur on physical examination Hx of urinary frequency BMI 25.0-25.9,adult Colon cancer screening Breast cancer screening by mammogram Peripheral arterial disease (09/05/20) patient had abnormal KEYA screening on 09/05/2020 with moderate decrease in the right foot and significant in the left Prurigo nodularis Chronic depression Urticaria Rotator cuff arthropathy of right shoulder Spinal stenosis Surgical History Surgical History H/O eye surgery History of bilateral knee replacement History of partial hysterectomy History of back surgery Hx of fusion of cervical spine Family History Family History Mother Patient's mother is , Onset Age: 90 Old age Heart disease Breast cancer Father Patient's father is , Onset Age: 87 Heart disease Bladder cancer Social History Social History Smoking status: Never smoker Alcohol intake: current Drinks per week: 14 Substance use: never Substance use type: does not use Other substance usage details: Takes for pain Lack of Transportation: YES Lack of Food: Never True Current Housing: I Have Housing Concerned About Future Housing: No Difficulty Paying Gas/Electric Bills: No Difficulty Paying for Meds: No Currently Unemployed: No Education: Associate Degree Difficulty w/ Childcare or Family Care: No Gender identity (if verbalized by the patient): Female Spiritual care concerns: No Meds Home Medications and Allergies Home Medications ?Medication ?Instructions ?Recorded ?Confirmed ?Type bimatoprost 0.01 % eye drops 1 drop ophthalmic (eye) D AILY 05/07/19 03/19/25 History (Desire) biotin 10,000 mcg capsule 10,000 mcg PO DAILY 05/07/19 03/19/25 History dorzolamide 2 % eye drops 1 drop ophthalmic (eye) BID 05/07/19 02/01/25 History melatonin 10 mg tablet 10 mg PO DAILY PRN Insomnia 05/07/19 03/19/25 History multivitamin 1 cap PO DAILY 05/07/1903/01 History cyclobenzaprine 10 mg tablet 10 mg PO TID PRN muscle s pasm #90 08/08/20 03/19/25 Rx tabs ipratropium bromide 42 mcg (0.06 1 spray intranasal TI D PRN allergy 12/25/21 03/19/25 Rx %) nasal spray symptoms #15 mL apixaban 2.5 mg tablet (Eliquis) 2.5 mg PO BID 3 03/19/25 History fluticasone propionate 50 1 spray intranasal BID #16 g antonina 01/14/24 03/19/25 Rx mcg/actuation nasal spray,suspension (Flonase Allergy Relief) duloxetine 60 mg capsule,delayed 60 mg PO BID #180 cap s 04/01/24 03/19/25 Rx release amlodipine 5 mg tablet (Norvasc) 5 mg PO DAILY #90 tab s 07/21/24 03/19/25 Rx famotidine 40 mg tablet (Pepcid) 40 mg PO DAILY #90 ta bs 09/01/24 03/19/25 Rx hydroxyzine HCl 25 mg tablet 25 mg PO BID PRN itching #60 tabs 09/01/24 03/19/25 Rx silver sulfadiazine 1 % topical 1 applic topical BID # 400 grams 09/01/24 03/19/25 Rx cream (Silvadene) Held on 12/21/24. Instructions: n irbesartan 300 mg tablet 300 mg PO DAILY #90 tabs 03/19/25 Rx atorvastatin 40 mg tablet 40 mg PO DAILY #90 tabs 09/2903/19/25 Rx celecoxib 200 mg capsule 200 mg PO DAILY PRN pain #90 caps 10/09/24 03/19/25 Rx ropinirole 1 mg tablet 1 mg PO . q.h.s. #90 tabs 03/19/25 Rx metformin 500 mg tablet,extended 500 mg PO . with supp er #90 tabs 12/10/24 Rx release 24 hr methotrexate sodium 2.5 mg tablet 10 mg (4 x 2.5 mg) P O WEEKLY #16 12/10/24 03/19/25 Rx tabs furosemide 20 mg tablet 20 mg PO . q.a.m. PRN edema #30 01/05/25 03/19/25 Rx tabs quetiapine 25 mg tablet (Seroquel) 25 mg PO QHS PRN sl eep #30 tabs 01/14/25 03/19/25 Rx metoprolol tartrate 100 mg tablet 100 mg PO BID #180 t abs 02/01/25 03/19/25 Rx Allergies Allergy/AdvReac Type Severity Reaction Status Date / Time nickel Allergy Intermediate RASH Verified 11/26/24 15:11 oxycodone Allergy Intermediate HALLUCINATE Verified 11/26/24 15:11 S Vital Signs Vital Signs - 24 hr 03/19/25 11:53 03/19/25 15:53 03/19/25 15:53 Temperature 98.6 F Pulse Rate 81 89 87 Respiratory Rate 18 Blood Pressure 130/75 149/76 H 153/101 H Pulse Oximetry 98 Oxygen Delivery Room Air 03/19/25 15:53 Temperature Pulse Rate 92 Respiratory Rate Blood Pressure 161/88 H Pulse Oximetry Oxygen Delivery Exam Narrative: General: well appearing, appears stated age. HEENT: normocephalic, atraumatic. Mucous membranes moist. EOMI, PERRLA, bilateral sclera anicteric, no conjunctival injection. Neck supple without JVD, lymphadenopathy, or bruit. Respiratory: clear to ascultation bilaterally. No rales/rhonic/wheezes. Cardiovascular: Regular rate and rhythm, normal S1-S2 upon ascultation. No murmurs, rubs, or clicks. PMI is nondisplaced, capillary refill less than 3 second. Abdomen: Soft, round, no pulsatile masses, nondistended and nontender. No rebound, no guarding. No CVA tenderness, no hepatosplenomegaly. Bowel sounds present to all four quadrants. No high pitch or tinkling sounds, resonant to percussion. Extremities: No cyanosis, clubbing, or edema present. Pulses are palpable 2/2. Left lower extremity with edema and erythema right with erythema Neuro: Alert and orientated x 4. PERRLA. Cranial nerves 2-12 intact without focal deficit. Skin: Warm, dry, and intact, without rash, erythema, or lesion. Psych: pleasant, cooperative, normal speech, normal affect, no hallucinations, no dysarthia H&P: Results Labs Labs: Short CBC 03/19/25 Range/Units 14:03 WBC 21.0 H (4.5-10.0) K/mm3 Hgb 11.1 L (12.0-15.0) g/dL Hct 36.0 L (37.0-47.0) % Plt Count 375 D (150-375) k/mm3 BMP 03/19/25 14:03 Sodium 132 L Potassium 4.2 Chloride 97 L Carbon Dioxide 31 H BUN 14 Creatinine 0.50 L Glucose 120 H Calcium 10.3 H Liver Function 03/19/25 Range/Units 14:03 Total Bilirubin 0.7 (0.2-1.3) mg/dL AST 37 H (14-36) U/L ALT 16 (6-35) U/L Alkaline Phosphatase 115 (38-126) U/L Albumin 3.6 (3.5-5.1) g/dL Urine 03/19/25 Range/Units 15:26 Urine Color Yellow (Yellow) Urine Appearance Turbid H (Clear) Urine pH 8.5 (5.0-9.0) Ur Specific [place] 1.015 (1.001-1.035) Urine Protein Trace (Negative) mg/dL Urine Glucose (UA) Negative (Negative) mg/dL Assessment and Plan Assessment and plan (1) Bilateral lower leg cellulitis: Code(s): L03.116 - Cellulitis of left lower limb; L03.115 - Cellulitis of right lower limb Status: Acute Assessment and Plan: IV Ancef, according to nursing patient had a reaction to Ancef Blood cultures pending No IV fluids at this time due to pulmonary edema Started vancomycin (2) Diastolic heart failure: Qualifiers: Heart failure chronicity: chronic Qualified Code(s): I50.32 - Chronic diastolic (congestive) heart failure Code(s): I50.30 - Unspecified diastolic (congestive) heart failure Status: Acute Assessment and Plan: Small pleural effusions with pulmonary edema Daily Lasix (3) Atrial fibrillation with rapid ventricular response: Code(s): I48.91 - Unspecified atrial fibrillation Status: Acute Assessment and Plan: Patient went into AFib with RVR once arriving to the floor 5 mg of IV metoprolol Continue Eliquis (4) Type 2 diabetes mellitus without complications: Qualifiers: Diabetes mellitus mcc insulin use: without terminal clerk use Qualified Code(s): E11.9 - Type 2 diabetes mellitus without complications Code(s): E11.9 - Type 2 diabetes mellitus without complications Status: Acute Assessment and Plan: Hold home metformin Accu-Danya a.cLynette HS SSI (5) Primary hypertension: Code(s): I10 - Essential (primary) hypertension Status: Acute Assessment and Plan: Continue blood pressure medication (6) Anemia: Code(s): D64.9 - Anemia, unspecified Status: Acute Assessment and Plan: Iron deficiency anemia IV iron x2 Quality VTE Prophylaxis VTE prophylaxis: mechanical ordered and pharmacologic ordered Hospitalist MIPS Advance Care Plan I have confirmed that the patient's Advanced Care Plan is present, code status is documented, or surrogate decision maker is listed in patient medical record.: Yes Medication Reconciliation I have utilized all available resources to obtain, update and review the patients current medications (includes all prescriptions, OTC, herbals, cannabis, and nutritional supplements).: Yes
[2025-03-19] MEDS: ceFAZolin 1 GM in SODIUM CHLORIDE 0.9% IV 50 ML 100 ML IVPB (16:41)
[2025-03-19 16:51] LABS: CRP 7.7 mg/dL (<1.0)
[2025-03-19 17:12] LABS: NT Pro B Type Natriuretic Pept 5270 pg/mL (19.9-100)
--- NOTE | 2025-03-19 17:18 | PC.NURSE ---
Pt. urinated on pad in underwear. Pt. placed supine to remove dirty pad, duarte care applied with soap and water and clean depend applied. Pure wick placed. Pt. states I need to sit up. I feel short of breath. Pt. breathing labored. oxygen 85% on RA. Pt. wheezing bilaterally on inspiration and lung sounds tight. Pt. placed on 2L NC, bringing oxygen to 92%. Dr. Anders notified and to bedside. Per MD, pt. should receive breathing treatment. Do not send pt. to the floor until breathing treatment is done and MD has reassessed pt. ED respiratory notified and to bedside to administer. Pt. denies any prior pulmonary conditions. Pt. reports being a smoker 20 years ago.
--- NOTE | 2025-03-19 17:24 | PC.NURSE ---
ED respiratory at bedside.
[2025-03-19] MEDS: ALBUTEROL SULFATE NEB 2.5 MG/3 ML INH 5 MG INHALATION (17:27)
--- NOTE | 2025-03-19 17:28 | PC.NURSE ---
Report given to EDINSON Gonzalez. RN notified of change in pt. condition and delay in coming to the floor.
[2025-03-19 17:29] LABS: Thyroid Stimulating Hormone Reflex 2.160 uIU/mL (0.465-4.68)
[2025-03-19 17:33] LABS: Ferritin 80.80 ng/mL (11.1-264)
--- NOTE | 2025-03-19 17:54 | PC.NURSE ---
Pt. completed breathing treatment. Pt. 94% on RA. Audible wheezes on expiration. Dr. Anders notified. Per MD, pt. ok to go to 3rd med/surg. Pt. switched to telemetry. GUSTAVO Charles and general house worker notified. Verbal order given by for 25mg IV benadryl d/t SOB starting after completion of antibiotic.
[2025-03-19 18:07] LABS: Vitamin B12 623.0 pg/mL (239-931)
--- NOTE | 2025-03-19 18:23 | ECG_ITS ---
Test Date: 2025-03-19 18:34:11 Measurements Intervals [place] Rate: 123 P: 0 WV: 0 QRS: 15 QRSD: 76 T: 63 QT: 284 QTc: 407 Interpretive Statements ATRIAL FIBRILLATION WITH RAPID VENTRICULAR RESPONSE WITH ABERRANT CONDUCTION OR VENTRICULAR PREMATURE COMPLEXES CONSIDER PREVIOUS ANTERIOR INFARCTION ABNORMAL ECG Compared to ECG 03/19/2025 13:56:25 INCREASED HEART RATE Electronically Signed On 03-20-2025 08:37:55 CDT by Aly Nunez M.D.
--- NOTE | 2025-03-19 18:34 | ADMGEN ---
This patient, Maday Carrillo, was admitted to [facility] Surg Room 325-01. Patient/family oriented to hospital policies and general routines including ID bracelet, bed and alarms, visiting hours, pain management, procedures, bathroom and other care routines, personal items, smoking policy, room service/diet, and visiting hours. Information on how to activate the Rapid Response Team has been discussed. Patient/Family are encouraged to report perceived risks to care and to ask questions if they do not understand what they are told or what they should do.
[2025-03-19 18:51] LABS: Iron 18 ug/dL (37-170); Percent Iron Saturation 6 % (20-50)
[2025-03-19] MEDS: METOPROLOL TARTRATE INJ 5 MG/5 ML VIAL IV PUSH (19:49)
[2025-03-19] MEDS: IRON SUCROSE COMPLEX 200 MG, IRON SUCROSE COMPLEX 100 MG in SODIUM CHLORIDE 0.9% IV 250 ML 176.67 MG IVPB (20:07)
[2025-03-19] MEDS: VANCOMYCIN 1,500 MG/NS 500 ML 1,500 MG/500 ML BAG 250 MG IVPB (21:36)
[2025-03-20] VITALS (12 sets, daily range): BP systolic 131–149; BP diastolic 60–76; PULSE 92–119; RESP 16–20; TEMP 35.9–36.9; O2SAT 95–97
--- NOTE | 2025-03-20 | ECHO_ITS ---
Patient Info Name: Maday Carrillo Age: 84 years : 1940 Gender: Female Ht: 61 in Wt: 115 lbs BSA: 1.50 m2 HR: 119 bpm BP: 143 / 65 mmHg Heart Rhythm: Atrial Fibrillation Technical Quality: Good Exam Date: 03/20/2025 9:50 AM Patient Status: I Admit Date: 03/20/2025 Exam Type: CA echo doppler color flow Complete two-dimensional, color flow and Doppler transthoracic echocardiogram is performed. Staff Referring Physician: Rosa Elena Moore Instructional Developer: Cristal Comer Attending Provider: Codi Tineo Summary 1. Complete two-dimensional, color flow and Doppler transthoracic echocardiogram is performed. 2. Left ventricular hypertrophy with hyperdynamic systolic function. 3. Severe left atrial enlargement. 4. Aortic valve appears to be a prosthetics structure, likely a TAVR valve. No information is provided to me regarding the type of device. If this is a TAVR valve it appears to be functioning normally. Left Ventricle Left ventricular chamber dimension is normal. Left ventricular systolic function is hyperdynamic, estimated at >70. Right Ventricle Right ventricular chamber dimension is normal. Left Atria Left atrial chamber dimension is severely enlarged. Right Atria Right atrial chamber dimension is normal. Pulmonic Valve The pulmonic valve is not well visualized. Mitral Valve The mitral valve has normal leaflets. Tricuspid Valve The tricuspid valve leaflets are normal. Pericardium/Pleural The pericardium appears normal. Aorta The aortic root size at the sinus of Valsalva is normal. Left Ventricular Outflow Tract Name Value Normal LVOT 2D LVOT Diameter 2.0 cm LVOT Doppler LVOT Peak Velocity 170 cm/s LVOT Peak Gradient 11 mmHg LVOT Mean Gradient 6 mmHg LVOT VTI 31 cm LVOT VTI/AV VTI Ratio 0.5 LVOT Stroke Volume 94 ml LVOT CO 10.5 l/min LVOT CI 7.0 l/min/m2 Pulmonic Valve Name Value Normal RVOT Doppler RVOT Peak Velocity 88 cm/s RVOT Peak Gradient 3 mmHg PV Doppler PV Peak Velocity 100 cm/s PV Peak Gradient 4 mmHg Mitral Valve Name Value Normal MV Diastolic Function MV E Peak Velocity 85 cm/s MV A Peak Velocity 55 cm/s MV E/A 1.6 MV Decel Time (PW) 159 ms MV Annular TDI MV E/e' (Septal) 10.0 MV E/e' (Lateral) 8.1 MV E/e' (Average) 9.0 Tricuspid Valve Name Value Normal TV Regurgitation Doppler TR Peak Velocity 341 cm/s TR Peak Gradient 47 mmHg Aortic Valve Name Value Normal AV Doppler AV Peak Velocity 350 cm/s AV Peak Gradient 45 mmHg AV Mean Gradient 28 mmHg AV VTI 58 cm AV Area (Cont Eq VTI) 1.6 cm2 >=3.0 AV Area (Cont Eq Nicolas) 1.5 cm2 AV DI (Nicolas) 0.49 AV Regurgitation 2D LVOT Area 3.0 cm2 Ventricles Name Value Normal LV Dimensions 2D/MM IVS Diastolic Thickness (2D) 1.4 cm 0.6-1.0 LVID Diastole (2D) 3.2 cm 3.8-5.2 LVIW Diastolic Thickness (2D) 1.3 cm 0.6-0.9 LVID Systole (2D) 2.2 cm 2.2-3.5 LVOT Diameter 2.0 cm LV Mass (2D Cubed) 143.14 g 67.00-162.00 LV Mass Index (2D Cubed) 95 g/m2 43-95 Relative Wall Thickness (2D) 0.78 <=0.42 LV Fractional Shortening/Ejection Fraction 2D/MM LV Fractional Shortening (2D) 33 % 27-45 LV EF (2D Teichholz) 63 % LV Diastolic Volume (4C MOD) 64 ml LV EF (4C MOD) 64 % LV Diastolic Volume (2C MOD) 78 ml LV EF (2C MOD) 64 % LV Diastolic Volume (BP MOD) 71 ml 46-106 LV Diastolic Volume Index (BP MOD) 47 ml/m2 29-61 LV Systolic Volume (BP MOD) 26 ml 14-42 LV Systolic Volume Index (BP MOD) 17 ml/m2 8-24 LV EF (BP MOD) 64 % 54-74 LV Diastolic Length (4C) 7.2 cm LV Systolic Length (4C) 6.1 cm LV Stroke Volume (4C MOD) 41 ml Atria Name Value Normal LA Dimensions LA Volume (4C A-L) 87 ml LA Volume (BP A-L) 86 ml RA Dimensions RA Systolic Major [place] Length (4C) 6.7 cm 2.2-2.8 RA Area (4C) 14.4 cm2 <=18.0 Report Signatures
[2025-03-20 06:23] LABS: Hematocrit 34.8 % (37.0-47.0); Hemoglobin 10.8 g/dL (12.0-15.0); Immature Granulocyte Percent A 0.6 % (0-0.5); Lymphocytes Absolute Auto 1.08 K/mm3 (0.9-3.2); Mean Corpuscular HGB Conc 31.0 g/dl (32-36); Mean Corpuscular Hemoglobin 26.7 pg (26-34); Mean Corpuscular Volume 85.9 fl (80-100); Nucleated Red Blood Cells Absolute Auto 0.000 K/mm3 (0.0-0.012); Nucleated Red Blood Cells Perc 0.0 % (0.0-0.2); Platelet Count Result 324 k/mm3 (150-375); Red Blood Count 4.05 M/mm3 (4.2-5.4); White Blood Count 12.5 K/mm3 (4.5-10.0)
[2025-03-20 06:49] LABS: Anion Gap 5 mmol/L (4-12); Blood Urea Nitrogen 10 mg/dL (7-17); Calcium 9.8 mg/dL (8.4-10.2); Carbon Dioxide 28 mmol/L (22-30); Chloride 99 mmol/L (98-107); Estimated CRCL calculation 55 ml/min; Estimated Glomerular Filt Rate > 60; Glucose 97 mg/dL (65-110); Potassium 3.5 mmol/L (3.4-5.0); Sodium 132 mmol/L (137-145)
--- NOTE | 2025-03-20 07:58 | P.PNIM_ITS ---
Progress Note: A&P Assessment and Plan (1) Bilateral lower leg cellulitis: Code(s): L03.116 - Cellulitis of left lower limb; L03.115 - Cellulitis of right lower limb Status: Acute Assessment and Plan: - presented with bilateral LE edema and erythema, L>R associated with tenderness and warmth - afebrile - admit WBC 21 - patient on Eliquis, low suspicion for DVT -patient administered Ancef in the ED, had reaction according to nursing and switched to vancomycin -follow-up blood cultures - has chronic superficial skin sloughing/pruritis and has wound care at home. Wound care consulted (2) Diastolic heart failure: Qualifiers: Heart failure chronicity: chronic Qualified Code(s): I50.32 - Chronic diastolic (congestive) heart failure Code(s): I50.30 - Unspecified diastolic (congestive) heart failure Status: Acute Assessment and Plan: -echo 2020 with EF >70%, moderate to severe aortic valve stenosis. Patient reports history of TAVR. Repeat echo pending. - BNP 5270 - CXR with Small pleural effusions with pulmonary edema, but on RA - continue low dose PO Lasix for now. Patient reports dizziness with Lasix. 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 Iron studies consistent with iron deficiency. -IV iron x2 - monitor CBC (7) Chronic bilateral low back pain without sciatica: Code(s): M54.5 - Low back pain; Danielle89.29 - Other chronic pain Status: Acute Assessment and Plan: - patient has morphine pain pump (8) Vertigo: Code(s): R42 - Dizziness and giddiness Status: Acute Assessment and Plan: - reports dizziness with positional changes over the last 2 months, worse on admission. - no other focal deficits. NIH 0. - suspect orthostasis vs. peripheral vertigo or side effect from lasix. Less likely central etiology, but will obtain CT head and CTA head and neck since no prior history of brain imaging. - check orthostatic vital signs - trial meclizine - patient reports recent falls without injury. Lives alone. - PT/OT consulted Subjective Date/time seen: 03/20/25 07:58 Interval history: Patient seen and examined at bedside. Having positional dizziness and some dyspnea. Denies chest pain. Feels like legs are less swollen. Review of Systems Review of Systems: 12 systems were reviewed and are negativ e except for as per HPI. Exam Narrative: General: NAD Eyes: EOMI ENT: neck supple Cardiovascular: tachycardia, irregularly irregular Respiratory: Clear to auscultation, respirations even and unlabored on RA Gastrointestinal: Soft, non tender Genitourinary: no suprapubic tenderness Musculoskeletal: No edema Skin: bilateral LE excoriations with dry skin sloughing. BLE erythema, L>R with tenderness and warmth Neuro: Alert. Psych: Mood appropriate Objective Data Vital Signs Vital Signs: Vital Signs - 24 hr 03/19/25 11:53 03/19/25 15:44 03/19/25 15:47 Temperature 98.6 F Pulse Rate 81 Respiratory Rate 18 Blood Pressure 130/75 149/76 H Pulse Oximetry 98 72 L 97 Oxygen Delivery Room Air Oxygen Flow Rate 03/19/25 15:48 03/19/25 15:49 03/19/25 15:50 Temperature Pulse Rate 84 Respiratory Rate 16 Blood Pressure 153/101 H 161/88 H Pulse Oximetry 91 98 Oxygen Delivery Oxygen Flow Rate 03/19/25 15:53 03/19/25 15:53 03/19/25 15:53 Temperature Pulse Rate 89 87 92 Respiratory Rate Blood Pressure 149/76 H 153/101 H 161/88 H Pulse Oximetry Oxygen Delivery Oxygen Flow Rate 03/19/25 16:35 03/19/25 17:10 03/19/25 17:12 Temperature 98.4 F Pulse Rate 95 Respiratory Rate 20 Blood Pressure 179/97 H Pulse Oximetry 94 85 L 92 Oxygen Delivery Room Air Room Air Nasal Cannula Oxygen Flow Rate 2 03/19/25 17:29 03/19/25 17:36 03/19/25 17:56 Temperature Pulse Rate Respiratory Rate 28 H 28 H Blood Pressure Pulse Oximetry 94 Oxygen Delivery Room Air Oxygen Flow Rate 03/19/25 18:00 03/19/25 19:49 03/19/25 22:00 Temperature 98.1 F Pulse Rate 130 H 120 H 121 H Respiratory Rate 22 H 18 Blood Pressure 185/87 H 149/75 H Pulse Oximetry 94 99 Oxygen Delivery Oxygen Flow Rate 03/19/25 22:47 03/20/25 00:00 03/20/25 04:00 Temperature Pulse Rate 92 94 Respiratory Rate Blood Pressure Pulse Oximetry Oxygen Delivery Room Air Oxygen Flow Rate 03/20/25 06:00 Temperature 97.4 F L Pulse Rate 97 Respiratory Rate 16 Blood Pressure 143/65 H Pulse Oximetry 95 Oxygen Delivery Oxygen Flow Rate Intake/Output Intake/Output: Intake & Output 03/17/25 03/18/25 03/19/25 03/20/25 23:59 23:59 23:59 23:59 Intake Total 50 500 Output Total 1600 Balance 50 -1100 Meds/Results Medications: Active Medications Generic Name Dose Route Start Last Admin Trade Name Freq PRN Reason Stop Dose Admin Acetaminophen 650 mg 03/19/25 16:31 Acetaminophen 325 Mg Tablet PO Q4H PRN Mild Pain (1-3) or Fever Amlodipine Besylate 5 mg 03/20/25 09:00 Amlodipine Besylate 5 Mg Tablet PO DAILY [facility] Apixaban 2.5 mg 03/20/25 09:00 Apixaban 2.5 Mg Tablet PO BID [facility] Atorvastatin Calcium 40 mg 03/20/25 09:00 Atorvastatin 40 Mg Tablet PO DAILY [facility] Celecoxib 200 mg 03/19/25 19:19 Celecoxib 200 Mg Capsule PO DAILY PRN Pain 4-6 Cyclobenzaprine HCl 10 mg 03/19/25 19:19 Cyclobenzaprine Hcl 10 Mg Tablet PO TID PRN Muscle Spasm Dextrose 12.5 gm 03/19/25 16:35 Dextrose 50% 25 Gm/50 Ml Syringe IV PUSH PRN PRN Hypoglycemia Protocol Docusate Sodium 100 mg 03/19/25 16:31 Docusate Sodium 100 Mg Capsule PO BID PRN Constipation Duloxetine HCl 60 mg 03/20/25 09:00 Duloxetine Hcl 60 Mg Capsule.Dr PO BID [facility] Famotidine 40 mg 03/20/25 09:00 Famotidine 20 Mg Tablet PO DAILY [facility] Furosemide 20 mg 03/20/25 09:00 Furosemide 20 Mg Tablet PO QAM [facility] Glucagon 1 mg 03/19/25 16:35 Glucagon For Inj 1 Mg Vial IM PRN PRN Hypoglycemia Protocol Glucose 15 gm 03/19/25 16:35 Glucose Oral Gel 15 Gm Of Glucse In 37.5 Gm Tube PO PRN PRN Hypoglycemia Protocol Hydroxyzine HCl 25 mg 03/19/25 19:19 Hydroxyzine Hcl 25 Mg Tablet PO BID PRN Itching Dextrose 1,000 mls @ 100 mls/hr 03/19/25 16:35 Dextrose 5% 1,000 Ml IVPB PRN PRN Hypoglycemia Protocol Iron Sucrose 200 mg/ Iron 265 mls @ 176.667 mls/hr 03/20/25 09:00 Sucrose 100 mg/ Sodium IVPB 03/20/25 10:29 Chloride ONCE ONE Vancomycin HCl 1,000 mg/ 250 mls @ 250 mls/hr 03/20/25 21:00 Sodium Chloride IVPB Q24H [facility] Insulin Aspart 2 - 5 units 03/19/25 17:00 03/20/25 07:42 Insulin Aspart (*Bkc) 100 Units/Ml SUB-Q Not Given TIDWM [facility] Protocol Insulin Aspart 1 - 2 units 03/19/25 21:00 03/19/25 21:35 Insulin Aspart (*Bkc) 100 Units/Ml SUB-Q Not Given HS [facility] Protocol Irbesartan 300 mg 03/20/25 09:00 Irbesartan 150 Mg Tablet PO DAILY [facility] Latanoprost 1 drop 03/20/25 09:00 Latanoprost 0.005% Op Soln 2.5 Ml Btl EACH EYE DAILY [facility] Melatonin 10 mg 03/19/25 19:19 Melatonin 5 Mg Tablet PO DAILY PRN Insomnia Metoprolol Tartrate 100 mg 03/20/25 21:00 Metoprolol Tartrate 50 Mg Tab PO Q12HR [facility] Quetiapine Fumarate 25 mg 03/19/25 19:19 03/19/25 21:36 Quetiapine Fumarate 25 Mg Tablet PO 25 mg QHS PRN Administration Sleep Ropinirole HCl 1 mg 03/19/25 21:00 03/19/25 21:36 Ropinirole Hcl 1 Mg Tablet PO 1 mg HS [facility] Administration Radiology Results: ITS Impressions Chest X-Ray 03/19/25 14:42 IMPRESSION: 1. Very small bilateral pleural effusions with dependent bibasilar atelectasis, mild pulmonary edema or less likely pneumonia. Labs Labs: Laboratory Results - last 24 hr 03/19/25 03/19/25 03/19/25 14:03 15:26 16:14 WBC 21.0 H RBC 4.21 Hgb 11.1 L Hct 36.0 L MCV 85.5 MCH 26.4 MCHC 30.8 L RDW 16.8 H Plt Count 375 D MPV 8.9 Immature Gran % (Auto) 0.7 H Neut % (Auto) 88.6 H Lymph % (Auto) 4.4 L [place] % (Auto) 5.6 Eos % (Auto) 0.4 Baso % (Auto) 0.3 Lymph # (Auto) 0.92 [place] # (Auto) 1.2 H Eos # (Auto) 0.1 Baso # (Auto) 0.1 Abs Immat Gran (auto) 0.14 H Absolute Neuts (auto) 18.6 H Absolute Nucleated RBC 0.000 Nucleated RBC % 0.0 Sodium 132 L Potassium 4.2 Chloride 97 L Carbon Dioxide 31 H Anion Gap 4 BUN 14 Creatinine 0.50 L Estim Creat Clear Calc 54 Estimated GFR > 60 Glucose 120 H POC Capillary Glucose Calcium 10.3 H Iron 18 L TIBC 322 % Saturation 6 L Ferritin 80.80 Total Bilirubin 0.7 AST 37 H ALT 16 Alkaline Phosphatase 115 C-Reactive Protein 7.7 H NT-Pro-B Natriuret Pep 5270 H Total Protein 6.3 Albumin 3.6 Vitamin B12 623.0 Folate 12.0 TSH (Reflex) 2.160 Urine Color Yellow Urine Appearance Turbid H Urine pH 8.5 Ur Specific [place] 1.015 Urine Protein Trace Urine Glucose (UA) Negative Urine Ketones Negative Ur Blood (Man) Negative Urine Nitrate Negative Urine Bilirubin Negative Urine Urobilinogen 1.0 Leukocyte Esterase Rfl Negative Urine RBC 3-5 H Urine WBC 0-5 Ur Squamous Epith Cells None seen Urine Bacteria None seen Urine Casts 0-2 03/19/25 03/20/25 03/20/25 21:26 06:00 07:38 WBC 12.5 H RBC 4.05 L Hgb 10.8 L Hct 34.8 L MCV 85.9 MCH 26.7 MCHC 31.0 L RDW 16.7 H Plt Count 324 MPV 9.7 Immature Gran % (Auto) 0.6 H Neut % (Auto) 78.6 H Lymph % (Auto) 8.7 L [place] % (Auto) 10.5 H Eos % (Auto) 1.0 Baso % (Auto) 0.6 Lymph # (Auto) 1.08 [place] # (Auto) 1.3 H Eos # (Auto) 0.1 Baso # (Auto) 0.1 Abs Immat Gran (auto) 0.08 H Absolute Neuts (auto) 9.8 H Absolute Nucleated RBC 0.000 Nucleated RBC % 0.0 Sodium 132 L Potassium 3.5 Chloride 99 Carbon Dioxide 28 Anion Gap 5 BUN 10 Creatinine 0.49 L Estim Creat Clear Calc 55 Estimated GFR > 60 Glucose 97 POC Capillary Glucose 135 H 90 Calcium 9.8 Iron TIBC % Saturation Ferritin Total Bilirubin AST ALT Alkaline Phosphatase C-Reactive Protein NT-Pro-B Natriuret Pep Total Protein Albumin Vitamin B12 Folate TSH (Reflex) Urine Color Urine Appearance Urine pH Ur Specific [place] Urine Protein Urine Glucose (UA) Urine Ketones Ur Blood (Man) Urine Nitrate Urine Bilirubin Urine Urobilinogen Leukocyte Esterase Rfl Urine RBC Urine WBC Ur Squamous Epith Cells Urine Bacteria Urine Casts Quality VTE Prophylaxis VTE prophylaxis: mechanical ordered and pharmacologic ordered
[2025-03-20] MEDS: ATORVASTATIN 40 MG TABLET PO (09:01)
[2025-03-20] MEDS: FUROSEMIDE 20 MG TABLET PO (09:01)
[2025-03-20] MEDS: FAMOTIDINE 20 MG TABLET 40 MG PO (09:01)
[2025-03-20] MEDS: IRBESARTAN 150 MG TABLET 300 MG PO (09:02)
[2025-03-20] MEDS: APIXABAN 2.5 MG TABLET PO ×2 (09:02→17:32)
[2025-03-20] MEDS: DULoxetine HCL 60 MG CAPSULE.DR PO ×2 (09:03→17:32)
[2025-03-20] MEDS: LATANOPROST 0.005% OP SOLN 2.5 ML BTL 1 DROP EACH EYE (09:04)
[2025-03-20] MEDS: IRON SUCROSE COMPLEX 200 MG, IRON SUCROSE COMPLEX 100 MG in SODIUM CHLORIDE 0.9% IV 250 ML 176.67 MG IVPB (09:14)
[2025-03-20 10:39] LABS: Magnesium 1.6 mg/dL (1.6-2.3)
[2025-03-20] MEDS: MECLIZINE HCL 12.5 MG TABLET PO ×2 (12:07→17:32)
[2025-03-20] MEDS: VANCOMYCIN HCL 1,000 MG in SODIUM CHLORIDE 0.9% IV 250 ML 250 MG IVPB (21:34)
[2025-03-20] MEDS: METOPROLOL TARTRATE 50 MG TAB 100 MG PO (21:34)
[2025-03-21] VITALS (12 sets, daily range): BP systolic 122–138; BP diastolic 69–80; PULSE 76–97; RESP 16–20; TEMP 36.9–37.2; O2SAT 93–100
[2025-03-21 07:20] LABS: Hematocrit 35.6 % (37.0-47.0); Hemoglobin 11.0 g/dL (12.0-15.0); Immature Granulocyte Percent A 0.7 % (0-0.5); Lymphocytes Absolute Auto 0.81 K/mm3 (0.9-3.2); Mean Corpuscular HGB Conc 30.9 g/dl (32-36); Mean Corpuscular Hemoglobin 26.4 pg (26-34); Mean Corpuscular Volume 85.6 fl (80-100); Nucleated Red Blood Cells Absolute Auto 0.000 K/mm3 (0.0-0.012); Nucleated Red Blood Cells Perc 0.0 % (0.0-0.2); Platelet Count Result 366 k/mm3 (150-375); Red Blood Count 4.16 M/mm3 (4.2-5.4); White Blood Count 10.6 K/mm3 (4.5-10.0)
[2025-03-21 07:28] LABS: Anion Gap 2 mmol/L (4-12); Blood Urea Nitrogen 8 mg/dL (7-17); CRP 5.8 mg/dL (<1.0); Calcium 9.9 mg/dL (8.4-10.2); Carbon Dioxide 32 mmol/L (22-30); Chloride 98 mmol/L (98-107); Estimated CRCL calculation 46 ml/min; Estimated Glomerular Filt Rate > 60; Glucose 104 mg/dL (65-110); Potassium 3.4 mmol/L (3.4-5.0); Sodium 132 mmol/L (137-145)
--- NOTE | 2025-03-21 07:42 | P.PNIM_ITS ---
Progress Note: A&P Assessment and Plan (1) Bilateral lower leg cellulitis: Code(s): L03.116 - Cellulitis of left lower limb; L03.115 - Cellulitis of right lower limb Status: Acute Assessment and Plan: - presented with bilateral LE edema and erythema, L>R associated with tenderness and warmth - afebrile - admit WBC 21-->10.6 - patient on Eliquis, low suspicion for DVT -patient administered Ancef in the ED, had reaction according to nursing and switched to vancomycin -follow-up blood cultures - has chronic superficial skin sloughing/pruritus and has wound care at home. Wound care consulted - overall improved. Stop vancomycin and start Bactrim, monitor response. (2) Diastolic heart failure: Qualifiers: Heart failure chronicity: chronic Qualified Code(s): I50.32 - Chronic diastolic (congestive) heart failure Code(s): I50.30 - Unspecified diastolic (congestive) heart failure Status: Acute Assessment and Plan: -echo 03/20 with hyperdynamic systolic function, severe left atrial enlargement, TAVR valve functioning normally. - BNP 5270 - CXR with Small pleural effusions with pulmonary edema, but on RA. - continue low dose PO Lasix for now. Patient reports dizziness with Lasix. (3) Atrial fibrillation with rapid ventricular response: Code(s): I48.91 - Unspecified atrial fibrillation Status: Acute Assessment and Plan: - Patient went into AFib with RVR once arriving to the floor, recieved 5 mg of IV metoprolol - resume home metoprolol, titrate as needed - rate now well-controlled - Continue Eliquis (4) Type 2 diabetes mellitus without complications: Qualifiers: Diabetes mellitus intermediate designer insulin use: without intermediate designer use Qualified Code(s): E11.9 - Type 2 diabetes mellitus without complications Code(s): E11.9 - Type 2 diabetes mellitus without complications Status: Acute Assessment and Plan: -Hold home metformin -Accu-Cheks aLynettecLynette HS -SSI - hypoglycemia protocol (5) Primary hypertension: Code(s): I10 - Essential (primary) hypertension Status: Acute Assessment and Plan: -BP stable -Continue blood pressure medication (6) Anemia: Code(s): D64.9 - Anemia, unspecified Status: Acute Assessment and Plan: -Hgb 10.8. Iron studies consistent with iron deficiency. -IV iron x2 - monitor CBC (7) Chronic bilateral low back pain without sciatica: Code(s): M54.5 - Low back pain; G89.29 - Other chronic pain Status: Acute Assessment and Plan: - patient has morphine pain pump (8) Vertigo: Code(s): R42 - Dizziness and giddiness Status: Acute Assessment and Plan: - reports dizziness with positional changes over the last 2 months, worse on admission. - no other focal deficits. NIH 0. 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 No significant stenosis. - old strokes could be contributing, however, PT reported + [place]-Hallpike suggesting peripheral etiology. - reports improvement with meclizine. - patient reports recent falls without injury. Lives alone. - PT/OT consulted and recommended [facility]. Patient would benefit from vestibular therapy. 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 No significant stenosis. - continue home Eliquis, statin Subjective Date/time seen: 03/21/25 07:42 Interval history: Patient seen and examined up in chair. Feeling better today, less dizzy. Review of Systems Review of Systems: 12 systems were reviewed and are negativ e except for as per HPI. Exam Narrative: General: NAD Eyes: EOMI ENT: neck supple Cardiovascular:irregularly irregular Respiratory: Clear to auscultation, respirations even and unlabored on RA Gastrointestinal: Soft, non tender Genitourinary: no suprapubic tenderness Musculoskeletal: No edema Skin: bilateral LE excoriations with dry skin sloughing. BLE erythema, L>R with tenderness and warmth, improved from yesterday. Neuro: Alert. Psych: Mood appropriate Objective Data Vital Signs Vital Signs: Vital Signs - 24 hr 03/20/25 08:00 03/20/25 10:00 03/20/25 10:00 Temperature Pulse Rate 111 H Respiratory Rate Blood Pressure 136/60 149/76 H Pulse Oximetry Oxygen Delivery 03/20/25 10:00 03/20/25 12:00 03/20/25 14:00 Temperature 96.6 F L Pulse Rate 119 H 113 H Respiratory Rate 18 Blood Pressure 131/73 136/60 Pulse Oximetry 97 Oxygen Delivery 03/20/25 16:00 03/20/25 20:00 03/20/25 20:00 Temperature Pulse Rate 104 H 108 H 119 H Respiratory Rate 20 Blood Pressure Pulse Oximetry 96 Oxygen Delivery Room Air 03/20/25 21:34 03/20/25 21:49 03/20/25 22:09 Temperature 98.5 F Pulse Rate 107 H 108 H Respiratory Rate 20 Blood Pressure 136/71 Pulse Oximetry 96 96 Oxygen Delivery Room Air 03/21/25 00:00 03/21/25 04:00 03/21/25 06:00 Temperature 99.0 F Pulse Rate 80 80 88 Respiratory Rate 16 Blood Pressure 138/80 Pulse Oximetry 93 Oxygen Delivery Intake/Output Intake/Output: Intake & Output 03/18/25 03/19/25 03/20/25 03/21/25 23:59 23:59 23:59 23:59 Intake Total 50 1220 200 Output Total 3100 350 Balance 50 -1880 -150 Meds/Results Medications: Active Medications Generic Name Dose Route Start Last Admin Trade Name Freq PRN Reason Stop Dose Admin Acetaminophen 650 mg 03/19/25 16:31 Acetaminophen 325 Mg Tablet PO Q4H PRN Mild Pain (1-3) or Fever Amlodipine Besylate 5 mg 03/20/25 09:00 03/20/25 09:00 Amlodipine Besylate 5 Mg Tablet PO 5 mg DAILY ELIZABETH Administration Apixaban 2.5 mg 03/20/25 09:00 03/20/25 17:32 Apixaban 2.5 Mg Tablet PO 2.5 mg BID ELIZABETH Administration Atorvastatin Calcium 40 mg 03/20/25 09:00 03/20/25 09:01 Atorvastatin 40 Mg Tablet PO 40 mg DAILY ELIZABETH Administration Celecoxib 200 mg 03/19/25 19:19 Celecoxib 200 Mg Capsule PO DAILY PRN Pain 4-6 Cyclobenzaprine HCl 10 mg 03/19/25 19:19 Cyclobenzaprine Hcl 10 Mg Tablet PO TID PRN Muscle Spasm Dextrose 12.5 gm 03/19/25 16:35 Dextrose 50% 25 Gm/50 Ml Syringe IV PUSH PRN PRN Hypoglycemia Protocol Docusate Sodium 100 mg 03/19/25 16:31 Docusate Sodium 100 Mg Capsule PO BID PRN Constipation Duloxetine HCl 60 mg 03/20/25 09:00 03/20/25 17:32 Duloxetine Hcl 60 Mg Capsule.Dr PO 60 mg BID ELIZABETH Administration Famotidine 40 mg 03/20/25 09:00 03/20/25 09:01 Famotidine 20 Mg Tablet PO 40 mg DAILY EILZABETH Administration Furosemide 20 mg 03/20/25 09:00 03/20/25 09:01 Furosemide 20 Mg Tablet PO 20 mg QAM ELIZABETH Administration Glucagon 1 mg 03/19/25 16:35 Glucagon For Inj 1 Mg Vial IM PRN PRN Hypoglycemia Protocol Glucose 15 gm 03/19/25 16:35 Glucose Oral Gel 15 Gm Of Glucse In 37.5 Gm Tube PO PRN PRN Hypoglycemia Protocol Hydroxyzine HCl 25 mg 03/19/25 19:19 03/20/25 18:38 Hydroxyzine Hcl 25 Mg Tablet PO 25 mg BID PRN Administration Itching Dextrose 1,000 mls @ 100 mls/hr 03/19/25 16:35 Dextrose 5% 1,000 Ml IVPB PRN PRN Hypoglycemia Protocol Vancomycin HCl 1,000 mg/ 250 mls @ 250 mls/hr 03/20/25 21:00 03/20/25 21:34 Sodium Chloride IVPB 250 mls/hr Q24H ELIZABETH Administration Insulin Aspart 2 - 5 units 03/19/25 17:00 03/20/25 16:48 Insulin Aspart (*Bkc) 100 Units/Ml SUB-Q Not Given TIDWM ELIZABETH Protocol Irbesartan 300 mg 03/20/25 09:00 03/20/25 09:02 Irbesartan 150 Mg Tablet PO 300 mg DAILY ELIZABETH Administration Latanoprost 1 drop 03/20/25 09:00 03/20/25 09:04 Latanoprost 0.005% Op Soln 2.5 Ml Btl EACH EYE 1 drop DAILY ELIZABETH Administration Meclizine HCl 12.5 mg 03/20/25 13:00 03/20/25 17:32 Meclizine Hcl 12.5 Mg Tablet PO 12.5 mg TID ELIZABETH Administration Melatonin 10 mg 03/19/25 19:19 Melatonin 5 Mg Tablet PO DAILY PRN Insomnia Metoprolol Tartrate 100 mg 03/20/25 21:00 03/20/25 21:34 Metoprolol Tartrate 50 Mg Tab PO 100 mg Q12HR ELIZABETH Administration Perflutren Lipid Microsphere 0 ml 03/20/25 08:06 Perflutren Lipid Microspheres 1.5 Ml Vial Diluted To 10 Ml Total Volume IV PUSH 03/23/25 08:06 ONCE PRN adequate visualization Protocol Quetiapine Fumarate 25 mg 03/19/25 19:19 03/20/25 21:35 Quetiapine Fumarate 25 Mg Tablet PO 25 mg QHS PRN Administration Sleep Ropinirole HCl 1 mg 03/19/25 21:00 03/20/25 21:35 Ropinirole Hcl 1 Mg Tablet PO 1 mg HS ELIZABETH Administration Radiology Results: ITS Impressions Chest X-Ray 03/19/25 14:42 IMPRESSION: 1. Very small bilateral pleural effusions with dependent bibasilar atelectasis, mild pulmonary edema or less likely pneumonia. Labs Labs: Laboratory Results - last 24 hr 03/20/25 03/20/25 03/20/25 06:00 07:38 11:31 WBC RBC Hgb Hct MCV MCH MCHC RDW Plt Count MPV Immature Gran % (Auto) Neut % (Auto) Lymph % (Auto) [place] % (Auto) Eos % (Auto) Baso % (Auto) Lymph # (Auto) [place] # (Auto) Eos # (Auto) Baso # (Auto) Abs Immat Gran (auto) Absolute Neuts (auto) Absolute Nucleated RBC Nucleated RBC % Sodium Potassium Chloride Carbon Dioxide Anion Gap BUN Creatinine Estim Creat Clear Calc Estimated GFR Glucose POC Capillary Glucose 90 111 H Calcium Magnesium 1.6 C-Reactive Protein 03/20/25 03/20/25 03/21/25 16:39 19:54 06:41 WBC 10.6 H RBC 4.16 L Hgb 11.0 L Hct 35.6 L MCV 85.6 MCH 26.4 MCHC 30.9 L RDW 16.6 H Plt Count 366 MPV 9.6 Immature Gran % (Auto) 0.7 H Neut % (Auto) 71.1 Lymph % (Auto) 7.6 L [place] % (Auto) 14.1 H Eos % (Auto) 5.7 H Baso % (Auto) 0.8 Lymph # (Auto) 0.81 L [place] # (Auto) 1.5 H Eos # (Auto) 0.6 H Baso # (Auto) 0.1 Abs Immat Gran (auto) 0.07 H Absolute Neuts (auto) 7.5 H Absolute Nucleated RBC 0.000 Nucleated RBC % 0.0 Sodium 132 L Potassium 3.4 Chloride 98 Carbon Dioxide 32 H Anion Gap 2 L BUN 8 Creatinine 0.59 L Estim Creat Clear Calc 46 Estimated GFR > 60 Glucose 104 POC Capillary Glucose 123 H 134 H Calcium 9.9 Magnesium C-Reactive Protein 5.8 H Quality VTE Prophylaxis VTE prophylaxis: mechanical ordered and pharmacologic ordered
[2025-03-21] MEDS: FAMOTIDINE 20 MG TABLET 40 MG PO (08:09)
[2025-03-21] MEDS: IRBESARTAN 150 MG TABLET 300 MG PO (08:10)
[2025-03-21] MEDS: METOPROLOL TARTRATE 50 MG TAB 100 MG PO ×2 (08:11→21:41)
[2025-03-21] MEDS: MECLIZINE HCL 12.5 MG TABLET PO ×3 (08:11→15:58)
[2025-03-21] MEDS: APIXABAN 2.5 MG TABLET PO ×2 (08:13→15:58)
[2025-03-21] MEDS: FUROSEMIDE 20 MG TABLET PO (08:13)
[2025-03-21] MEDS: ATORVASTATIN 40 MG TABLET PO (08:13)
[2025-03-21] MEDS: DULoxetine HCL 60 MG CAPSULE.DR PO ×2 (08:13→15:58)
[2025-03-21] MEDS: POTASSIUM CHLORIDE 20 MEQ ER TABLET PO (08:14)
[2025-03-21] MEDS: MAGNESIUM SULF 2 GM/WATER 50ML 2 GM/50 ML BAG IVPB (08:17)
[2025-03-21] MEDS: LATANOPROST 0.005% OP SOLN 2.5 ML BTL 1 DROP EACH EYE (08:23)
[2025-03-21] MEDS: SULFAMETHOXAZOLE/TRIMETHOPRIM 800/160 MG DS TABLET 1 TAB PO (21:44)
[2025-03-22] VITALS (11 sets, daily range): BP systolic 121–144; BP diastolic 61–80; PULSE 77–98; RESP 14–20; TEMP 36.1–37.3; O2SAT 93–100
[2025-03-22 06:42] LABS: Hematocrit 34.6 % (37.0-47.0); Hemoglobin 10.8 g/dL (12.0-15.0); Immature Granulocyte Percent A 1.0 % (0-0.5); Lymphocytes Absolute Auto 0.78 K/mm3 (0.9-3.2); Mean Corpuscular HGB Conc 31.2 g/dl (32-36); Mean Corpuscular Hemoglobin 26.5 pg (26-34); Mean Corpuscular Volume 85.0 fl (80-100); Nucleated Red Blood Cells Absolute Auto 0.020 K/mm3 (0.0-0.012); Nucleated Red Blood Cells Perc 0.2 % (0.0-0.2); Platelet Count Result 388 k/mm3 (150-375); Red Blood Count 4.07 M/mm3 (4.2-5.4); White Blood Count 10.4 K/mm3 (4.5-10.0)
[2025-03-22 06:55] LABS: Anion Gap 4 mmol/L (4-12); Blood Urea Nitrogen 8 mg/dL (7-17); CRP 3.3 mg/dL (<1.0); Calcium 9.8 mg/dL (8.4-10.2); Carbon Dioxide 29 mmol/L (22-30); Chloride 100 mmol/L (98-107); Estimated CRCL calculation 48 ml/min; Estimated Glomerular Filt Rate > 60; Glucose 105 mg/dL (65-110); Potassium 3.6 mmol/L (3.4-5.0); Sodium 133 mmol/L (137-145)
[2025-03-22] MEDS: ATORVASTATIN 40 MG TABLET PO (08:39)
[2025-03-22] MEDS: MECLIZINE HCL 12.5 MG TABLET PO ×3 (08:39→17:26)
[2025-03-22] MEDS: DULoxetine HCL 60 MG CAPSULE.DR PO ×2 (08:39→17:26)
[2025-03-22] MEDS: FUROSEMIDE 20 MG TABLET PO (08:39)
[2025-03-22] MEDS: IRBESARTAN 150 MG TABLET 300 MG PO (08:39)
[2025-03-22] MEDS: SULFAMETHOXAZOLE/TRIMETHOPRIM 800/160 MG DS TABLET 1 TAB PO (08:40)
[2025-03-22] MEDS: FAMOTIDINE 20 MG TABLET 40 MG PO (08:40)
[2025-03-22] MEDS: APIXABAN 2.5 MG TABLET PO ×2 (08:40→17:26)
[2025-03-22] MEDS: METOPROLOL TARTRATE 50 MG TAB 100 MG PO ×2 (08:53→20:54)
[2025-03-22] MEDS: LATANOPROST 0.005% OP SOLN 2.5 ML BTL 1 DROP EACH EYE (08:54)
--- NOTE | 2025-03-22 14:09 | P.PNIM_ITS ---
Progress Note: A&P Assessment and Plan (1) Bilateral lower leg cellulitis: Code(s): L03.116 - Cellulitis of left lower limb; L03.115 - Cellulitis of right lower limb Status: Acute Assessment and Plan: - presented with bilateral LE edema and erythema, L>R associated with tenderness and warmth. Reports LLE is chronically more swollen than right. - afebrile - admit WBC 21-->10.4 - patient on Eliquis, low suspicion for DVT -patient administered Ancef in the ED, had reaction according to nursing and switched to vancomycin -follow-up blood cultures - has chronic superficial skin sloughing/pruritus and has wound care at home. Wound care consulted - cellulitis initially improving and vancomycin was stopped and started on Bactrim. Redness worsening today. Patient states she has had good response to Keflex in the past. Will trial Keflex. Monitor site. Nursing to demetrius erythema to monitor progression. - wound care consulted (2) Vertigo: Code(s): R42 - Dizziness and giddiness Status: Acute Assessment and Plan: - reports dizziness with positional changes over the last 2 months, worse on admission. - no other focal deficits. NIH 0. 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 No significant stenosis. Patient was not aware of strokes. - old strokes could be contributing, however, PT reported + [place]-Hallpike suggesting peripheral etiology. - reports improvement with meclizine. - patient reports recent falls without injury. Lives alone. - PT/OT consulted and recommended [facility]. Patient would benefit from vestibular therapy. - neuro consulted, appreciate recs (3) Diastolic heart failure: Qualifiers: Heart failure chronicity: chronic Qualified Code(s): I50.32 - Chronic diastolic (congestive) heart failure Code(s): I50.30 - Unspecified diastolic (congestive) heart failure Status: Acute Assessment and Plan: -echo 03/20 with hyperdynamic systolic function, severe left atrial enlargement, TAVR valve functioning normally. - BNP 5270 - CXR with Small pleural effusions with pulmonary edema, but on RA. - continue low dose PO Lasix for now. Patient reports dizziness with Lasix. (4) Atrial fibrillation with rapid ventricular response: Code(s): I48.91 - Unspecified atrial fibrillation Status: Acute Assessment and Plan: - Patient went into AFib with RVR once arriving to the floor, received 5 mg of IV metoprolol - resume home metoprolol, titrate as needed. Patient reports intermittent compliance with metoprolol. 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 HS -SSI - hypoglycemia protocol (6) Primary hypertension: Code(s): I10 - Essential (primary) hypertension Status: Acute Assessment and Plan: -BP stable -Continue blood pressure medication (7) Anemia: Code(s): D64.9 - Anemia, unspecified Status: Acute Assessment and Plan: -Hgb 10.8. Iron studies consistent with iron deficiency. 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 No significant stenosis. - continue home Eliquis, statin Subjective Date/time seen: 03/22/25 14:09 Interval history: Patient seen and examined at bedside. Still dizzy, but improved. Feels like left leg is more red today. Review of Systems Review of Systems: 12 systems were reviewed and are negativ e except for as per HPI. Exam Narrative: General: NAD Eyes: EOMI ENT: neck supple Cardiovascular:irregularly irregular Respiratory: Clear to auscultation, respirations even and unlabored on RA Gastrointestinal: Soft, non tender Genitourinary: no suprapubic tenderness Musculoskeletal: No edema Skin: bilateral LE excoriations with dry skin sloughing. BLE erythema, L>R with tenderness and warmth Neuro: Alert. Psych: Mood appropriate Objective Data Vital Signs Vital Signs: Vital Signs - 24 hr 03/21/25 16:00 03/21/25 20:00 03/21/25 20:00 Temperature Pulse Rate 97 92 Respiratory Rate Blood Pressure Pulse Oximetry Oxygen Delivery Room Air Fraction of Inspired Oxygen 03/21/25 21:41 03/21/25 22:00 03/21/25 23:38 Temperature 98.9 F Pulse Rate 87 87 82 Respiratory Rate 16 20 Blood Pressure 137/72 Pulse Oximetry 100 95 Oxygen Delivery Room Air Fraction of Inspired Oxygen 03/22/25 00:00 03/22/25 04:00 03/22/25 06:00 Temperature 99.2 F Pulse Rate 77 79 92 Respiratory Rate 14 Blood Pressure 144/80 H Pulse Oximetry 95 Oxygen Delivery Fraction of Inspired Oxygen 03/22/25 08:00 03/22/25 08:00 03/22/25 08:53 Temperature Pulse Rate 84 80 Respiratory Rate Blood Pressure Pulse Oximetry Oxygen Delivery Room Air Fraction of Inspired Oxygen 03/22/25 12:00 Temperature Pulse Rate 85 Respiratory Rate Blood Pressure Pulse Oximetry Oxygen Delivery Fraction of Inspired Oxygen Intake/Output Intake/Output: Intake & Output 03/19/25 03/20/25 03/21/25 03/22/25 23:59 23:59 23:59 23:59 Intake Total 50 1220 1130 540 Output Total 3100 650 200 Balance 50 -1880 480 340 Meds/Results Medications: Active Medications Generic Name Dose Route Start Last Admin Trade Name Freq PRN Reason Stop Dose Admin Acetaminophen 650 mg 03/19/25 16:31 Acetaminophen 325 Mg Tablet PO Q4H PRN Mild Pain (1-3) or Fever Amlodipine Besylate 5 mg 03/20/25 09:00 03/22/25 08:53 Amlodipine Besylate 5 Mg Tablet PO 5 mg DAILY ELIZABETH Administration Apixaban 2.5 mg 03/20/25 09:00 03/22/25 08:40 Apixaban 2.5 Mg Tablet PO 2.5 mg BID ELIZABETH Administration Atorvastatin Calcium 40 mg 03/20/25 09:00 03/22/25 08:39 Atorvastatin 40 Mg Tablet PO 40 mg DAILY ELIZABETH Administration Celecoxib 200 mg 03/19/25 19:19 Celecoxib 200 Mg Capsule PO DAILY PRN Pain 4-6 Cephalexin HCl 500 mg 03/22/25 18:00 Cephalexin 500 Mg Capsule PO Q6HR ELIZABETH Cyclobenzaprine HCl 10 mg 03/19/25 19:19 Cyclobenzaprine Hcl 10 Mg Tablet PO TID PRN Muscle Spasm Dextrose 12.5 gm 03/19/25 16:35 Dextrose 50% 25 Gm/50 Ml Syringe IV PUSH PRN PRN Hypoglycemia Protocol Docusate Sodium 100 mg 03/19/25 16:31 Docusate Sodium 100 Mg Capsule PO BID PRN Constipation Duloxetine HCl 60 mg 03/20/25 09:00 03/22/25 08:39 Duloxetine Hcl 60 Mg Capsule.Dr PO 60 mg BID ELIZABETH Administration Famotidine 40 mg 03/20/25 09:00 03/22/25 08:40 Famotidine 20 Mg Tablet PO 40 mg DAILY ELIZABETH Administration Furosemide 20 mg 03/20/25 09:00 03/22/25 08:39 Furosemide 20 Mg Tablet PO 20 mg QAM ELIZABETH Administration Glucagon 1 mg 03/19/25 16:35 Glucagon For Inj 1 Mg Vial IM PRN PRN Hypoglycemia Protocol Glucose 15 gm 03/19/25 16:35 Glucose Oral Gel 15 Gm Of Glucse In 37.5 Gm Tube PO PRN PRN Hypoglycemia Protocol Hydroxyzine HCl 25 mg 03/19/25 19:19 03/21/25 15:58 Hydroxyzine Hcl 25 Mg Tablet PO 25 mg BID PRN Administration Itching Dextrose 1,000 mls @ 100 mls/hr 03/19/25 16:35 Dextrose 5% 1,000 Ml IVPB PRN PRN Hypoglycemia Protocol Insulin Aspart 2 - 5 units 03/19/25 17:00 03/22/25 12:11 Insulin Aspart (*Bkc) 100 Units/Ml SUB-Q Not Given TIDWM ELIZABETH Protocol Irbesartan 300 mg 03/20/25 09:00 03/22/25 08:39 Irbesartan 150 Mg Tablet PO 300 mg DAILY ELIZABETH Administration Latanoprost 1 drop 03/20/25 09:00 03/22/25 08:54 Latanoprost 0.005% Op Soln 2.5 Ml Btl EACH EYE 1 drop DAILY ELIZABETH Administration Meclizine HCl 12.5 mg 03/20/25 13:00 03/22/25 12:12 Meclizine Hcl 12.5 Mg Tablet PO 12.5 mg TID ELIZABETH Administration Melatonin 10 mg 03/19/25 19:19 Melatonin 5 Mg Tablet PO DAILY PRN Insomnia Metoprolol Tartrate 100 mg 03/20/25 21:00 03/22/25 08:53 Metoprolol Tartrate 50 Mg Tab PO 100 mg Q12HR ELIZABETH Administration Perflutren Lipid Microsphere 0 ml 03/20/25 08:06 Perflutren Lipid Microspheres 1.5 Ml Vial Diluted To 10 Ml Total Volume IV PUSH 03/23/25 08:06 ONCE PRN adequate visualization Protocol Quetiapine Fumarate 25 mg 03/19/25 19:19 03/21/25 21:49 Quetiapine Fumarate 25 Mg Tablet PO 25 mg QHS PRN Administration Sleep Ropinirole HCl 1 mg 03/19/25 21:00 03/21/25 21:42 Ropinirole Hcl 1 Mg Tablet PO 1 mg HS ELIZABETH Administration Radiology Results: ITS Impressions Chest X-Ray 03/19/25 14:42 IMPRESSION: 1. Very small bilateral pleural effusions with dependent bibasilar atelectasis, mild pulmonary edema or less likely pneumonia. Head/Neck CTA 03/21/25 08:37 IMPRESSION: 1. 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 2. Moderate nonspecific cerebral white matter disease, which likely represents chronic small vessel ischemic disease. 3. No aneurysm or significant intracranial arterial stenosis. 4. 0% stenosis of the proximal internal carotid arteries relative to normal distal artery lumen diameters (NASCET criteria). Labs Labs: Laboratory Results - last 24 hr 03/21/25 03/21/25 03/22/25 16:49 21:26 06:16 WBC 10.4 H RBC 4.07 L Hgb 10.8 L Hct 34.6 L MCV 85.0 MCH 26.5 MCHC 31.2 L RDW 16.7 H Plt Count 388 H MPV 9.1 Immature Gran % (Auto) 1.0 H Neut % (Auto) 63.5 Lymph % (Auto) 7.5 L [place] % (Auto) 19.3 H Eos % (Auto) 7.7 H Baso % (Auto) 1.0 Lymph # (Auto) 0.78 L [place] # (Auto) 2.0 H Eos # (Auto) 0.8 H Baso # (Auto) 0.1 Abs Immat Gran (auto) 0.10 H Absolute Neuts (auto) 6.6 Absolute Nucleated RBC 0.020 H Nucleated RBC % 0.2 Sodium 133 L Potassium 3.6 Chloride 100 Carbon Dioxide 29 Anion Gap 4 BUN 8 Creatinine 0.56 L Estim Creat Clear Calc 48 Estimated GFR > 60 Glucose 105 POC Capillary Glucose 96 118 H Calcium 9.8 C-Reactive Protein 3.3 H 03/22/25 03/22/25 07:38 11:11 WBC RBC Hgb Hct MCV MCH MCHC RDW Plt Count MPV Immature Gran % (Auto) Neut % (Auto) Lymph % (Auto) [place] % (Auto) Eos % (Auto) Baso % (Auto) Lymph # (Auto) [place] # (Auto) Eos # (Auto) Baso # (Auto) Abs Immat Gran (auto) Absolute Neuts (auto) Absolute Nucleated RBC Nucleated RBC % Sodium Potassium Chloride Carbon Dioxide Anion Gap BUN Creatinine Estim Creat Clear Calc Estimated GFR Glucose POC Capillary Glucose 107 H 94 Calcium C-Reactive Protein Quality VTE Prophylaxis VTE prophylaxis: mechanical ordered and pharmacologic ordered
[2025-03-22] MEDS: CEPHALEXIN 500 MG CAPSULE PO ×2 (17:26→23:25)
[2025-03-22] MEDS: CELECOXIB 200 MG CAPSULE PO (20:54)
[2025-03-22] MEDS: CYCLOBENZAPRINE HCL 10 MG TABLET PO (20:54)
[2025-03-23] VITALS: PULSE 83
[2025-03-23 04:00] VITALS: PULSE 74
[2025-03-23 05:27] VITALS: BP 146/77; PULSE 85; RESP 16; TEMP 36.8; O2SAT 98
[2025-03-23] MEDS: CEPHALEXIN 500 MG CAPSULE PO ×2 (06:04→12:13)
[2025-03-23 06:55] LABS: Hematocrit 41.3 % (37.0-47.0); Hemoglobin 12.8 g/dL (12.0-15.0); Immature Granulocyte Percent A 3.1 % (0-0.5); Lymphocytes Absolute Auto 1.20 K/mm3 (0.9-3.2); Mean Corpuscular HGB Conc 31.0 g/dl (32-36); Mean Corpuscular Hemoglobin 26.4 pg (26-34); Mean Corpuscular Volume 85.3 fl (80-100); Nucleated Red Blood Cells Absolute Auto 0.030 K/mm3 (0.0-0.012); Nucleated Red Blood Cells Perc 0.3 % (0.0-0.2); Platelet Count Result 517 k/mm3 (150-375); Red Blood Count 4.84 M/mm3 (4.2-5.4); White Blood Count 9.3 K/mm3 (4.5-10.0)
[2025-03-23 07:11] LABS: Anion Gap 4 mmol/L (4-12); Blood Urea Nitrogen 8 mg/dL (7-17); Calcium 10.3 mg/dL (8.4-10.2); Carbon Dioxide 31 mmol/L (22-30); Chloride 100 mmol/L (98-107); Estimated CRCL calculation 44 ml/min; Estimated Glomerular Filt Rate > 60; Glucose 103 mg/dL (65-110); Potassium 3.3 mmol/L (3.4-5.0); Sodium 135 mmol/L (137-145)
[2025-03-23 07:13] LABS: CRP 3.0 mg/dL (<1.0)
[2025-03-23 08:00] VITALS: PULSE 85; RESP 16; O2SAT 98
[2025-03-23] MEDS: APIXABAN 2.5 MG TABLET PO (08:33)
[2025-03-23] MEDS: MECLIZINE HCL 12.5 MG TABLET PO ×2 (08:33→12:13)
[2025-03-23] MEDS: FAMOTIDINE 20 MG TABLET 40 MG PO (08:33)
[2025-03-23] MEDS: DULoxetine HCL 60 MG CAPSULE.DR PO (08:33)
[2025-03-23] MEDS: METOPROLOL TARTRATE 50 MG TAB 100 MG PO (08:33)
[2025-03-23] MEDS: ATORVASTATIN 40 MG TABLET PO (08:33)
[2025-03-23] MEDS: IRBESARTAN 150 MG TABLET 300 MG PO (08:33)
[2025-03-23] MEDS: FUROSEMIDE 20 MG TABLET PO (08:33)
[2025-03-23] MEDS: LATANOPROST 0.005% OP SOLN 2.5 ML BTL 1 DROP EACH EYE (08:34)
[2025-03-23] MEDS: POTASSIUM CHLORIDE 20 MEQ PACKET (FOR LIQUID) 40 MEQ PO (08:38)
[2025-03-23 10:35] LABS: Parathyroid Intact 71.1 pg/mL (14.5-75.2)
[2025-03-23 14:00] VITALS: BP 117/63; PULSE 79; RESP 18; TEMP 37; O2SAT 97
--- NOTE | 2025-03-23 14:12 | P.CONNEU_ITS ---
Assessment and Plan Assessment and plan (1) Cellulitis: Code(s): L03.90 - Cellulitis, unspecified Status: Acute (2) Hypercalcemia: Code(s): E83.52 - Hypercalcemia Status: Acute Plan 1 his mellitus with diabetic peripheral neuropathy 2. Bladder dysfunction 3. Hypertension 4. Hypothyroidism by history 5. Gait dysfunction with recurrent falls could be a complicating factor underlying peripheral neuropathy 6. Atrial fibrillation 7. History of spinal stenosis 8. Increasing weakness with lightheadedness dizziness could very well be related to diabetic autonomic neuropathy. echocardiogram has already been done which documents severe left atrial enlargement 9. CTA of the head has documented the infarct involving the right cerebellum, right thalamus bilateral ganglion which will be additional factors to increase the dizziness. Obviously apixaban will be continued, along with the atorvastatin 40mg daily, but she will benefit from cutting down the cyclobenzaprine p.r.n. hydroxyzine p.r.n. to avoid increasing dizziness. I will discuss these problems with the patient. Consult date: 03/23/25 HPI: Maday Carrillo is a 84 year old female admitted to the hospital through the emergency room with the complaints of increasing weakness, increasing lightheadedness and increasing dizziness in addition to the rash on the lower extremities which she has had for the last several months. She also complained of intermittent painful urination, patient has been taking multiple medications as outlined particularly apixaban 2.5mg tablets twice a day and she has been allergic to nickel and oxycodone. She carries the ongoing diagnosis of 1.type 2 diabetes mellitus 2., hypothyroidism, 3. atrial fibrillation with rapid ventricular response, 4.diabetic peripheral neuropathy, 5.peripheral vascular disease, 6. rotator cuff arthropathy of right shoulder, 7.spinal stenosis and 8.has undergone eye surgery, 9. bilateral knee replacement, Numbercervical spine surgery with fusion and low back surgery. she is a former smoker, current alcohol intake, Review of Systems 2 Review of Systems: All systems reviewed & are unremarkable except as noted in HPI and below [facility] Past Medical History Medical History (Updated 03/23/25 @ 14:20 by SB Sam) Atrial fibrillation with rapid ventricular response Type 2 diabetes mellitus without complications glucose 89 and hemoglobin A1c 6.2 on 05/15/2021. Fasting glucose 102 with hemoglobin A1c 5.8 on 12/04/2022. Glucose 99 with hemoglobin A1c 5.6 with microalbumin ratio 47 on 05/30/2023. Cellulitis of both lower extremities Insomnia Cellulitis of left lower extremity Bilateral lower leg cellulitis BMI 20.0-20.9, adult Body mass index [BMI] 22.0-22.9, adult BMI 21.0-21.9, adult Functional disorder of bladder Bunion of great toe of right foot At high risk for falls COVID-19 (~06/11/22) tested positive 06/11/2022. BMI 23.0-23.9, adult Chronic nonallergic rhinitis (~2021) Edema, peripheral Persistent proteinuria associated with type 2 diabetes mellitus (05/15/21) 1+ protein on urinalysis on 05/15/2021. 1+ protein on 12/04/2022. Protein is negative, urine microalbumin ratio elevated at 47 On 05/30/2023. Hypothyroidism, unspecified (05/15/21) TSH elevated at 10.0 on 05/16/2021. Previous TSH normal at 1.67 on 05/02/2021. TSH normal at 2.41 with free T4 1.54 on 12/04/2022. Hypertension associated with diabetes Hyperlipidemia associated with type 2 diabetes mellitus Frequent falls Syncope Laceration of occipital scalp Head injury, acute Glaucoma Diabetic peripheral neuropathy associated with type 2 diabetes mellitus Diabetic retinopathy associated with controlled type 2 diabetes mellitus Nail fungal infection Mycotic toenails Fatigue Heart murmur on physical examination Hx of urinary frequency BMI 25.0-25.9,adult Colon cancer screening Breast cancer screening by mammogram Peripheral arterial disease (09/05/20) patient had abnormal KEYA screening on 09/05/2020 with moderate decrease in the right foot and significant in the left Prurigo nodularis Chronic depression Urticaria Rotator cuff arthropathy of right shoulder Spinal stenosis Surgical History Surgical History H/O eye surgery History of bilateral knee replacement History of partial hysterectomy History of back surgery Hx of fusion of cervical spine Family History Family History Mother Patient's mother is , Onset Age: 90 Old age Heart disease Breast cancer Father Patient's father is , Onset Age: 87 Heart disease Bladder cancer Social History Social History Smoking status: Never smoker Alcohol intake: current Drinks per week: 14 Substance use: never Substance use type: does not use Other substance usage details: Takes for pain Lack of Transportation: YES Lack of Food: Never True Current Housing: I Have Housing Concerned About Future Housing: No Difficulty Paying Gas/Electric Bills: No Difficulty Paying for Meds: No Currently Unemployed: No Education: Associate Degree Difficulty w/ Childcare or Family Care: No Gender identity (if verbalized by the patient): Female Spiritual care concerns: No Meds Home Medications and Allergies Home Medications ?Medication ?Instructions ?Recorded ?Confirmed ?Type bimatoprost 0.01 % eye drops 1 drop ophthalmic (eye) D AILY 05/07/19 03/19/25 History (Lumigan) biotin 10,000 mcg capsule 10,000 mcg PO DAILY 05/07/19 03/19/25 History melatonin 10 mg tablet 10 mg PO DAILY PRN Insomnia 05/07/19 03/19/25 History multivitamin 1 cap PO DAILY 05/07/1903/01 History cyclobenzaprine 10 mg tablet 10 mg PO TID PRN muscle s pasm #90 08/08/20 03/19/25 Rx tabs ipratropium bromide 42 mcg (0.06 1 spray intranasal TI D PRN allergy 12/25/21 03/19/25 Rx %) nasal spray symptoms #15 mL apixaban 2.5 mg tablet (Eliquis) 2.5 mg PO BID 06/12/ 3 03/19/25 History fluticasone propionate 50 1 spray intranasal BID #16 g antonina 01/14/24 03/19/25 Rx mcg/actuation nasal spray,suspension (Flonase Allergy Relief) duloxetine 60 mg capsule,delayed 60 mg PO BID #180 cap s 04/01/24 03/19/25 Rx release amlodipine 5 mg tablet (Norvasc) 5 mg PO DAILY #90 tab s 07/21/24 03/19/25 Rx famotidine 40 mg tablet (Pepcid) 40 mg PO DAILY #90 ta bs 09/01/24 03/19/25 Rx hydroxyzine HCl 25 mg tablet 25 mg PO BID PRN itching #60 tabs 09/01/24 03/19/25 Rx silver sulfadiazine 1 % topical 1 applic topical BID # 400 grams 09/01/24 03/19/25 Rx cream (Silvadene) Held on 12/21/24. Instructions: n irbesartan 300 mg tablet 300 mg PO DAILY #90 tabs 03/19/25 Rx atorvastatin 40 mg tablet 40 mg PO DAILY #90 tabs 09/2903/19/25 Rx celecoxib 200 mg capsule 200 mg PO DAILY PRN pain #90 caps 10/09/24 03/19/25 Rx ropinirole 1 mg tablet 1 mg PO . q.h.s. #90 tabs 03/19/25 Rx metformin 500 mg tablet,extended 500 mg PO . with supp er #90 tabs 12/10/24 03/19/25 Rx release 24 hr methotrexate sodium 2.5 mg tablet 10 mg (4 x 2.5 mg) P O WEEKLY #16 12/10/24 03/19/25 Rx tabs furosemide 20 mg tablet 20 mg PO . q.a.m. PRN edema #30 01/05/25 03/19/25 Rx tabs quetiapine 25 mg tablet (Seroquel) 25 mg PO QHS PRN sl eep #30 tabs 01/14/25 03/19/25 Rx metoprolol tartrate 100 mg tablet 100 mg PO BID #180 t abs 02/01/25 03/19/25 Rx cephalexin 500 mg capsule 500 mg PO Q6HR 6 days #24 ca ps 03/23/25 Rx meclizine 12.5 mg tablet 12.5 mg PO TID PRN Dizziness 03/23/25 Rx days #30 tabs Allergies Allergy/AdvReac Type Severity Reaction Status Date / Time nickel Allergy Intermediate RASH Verified 11/26/24 15:11 oxycodone Allergy Intermediate HALLUCINATE Verified 11/26/24 15:11 S cefazolin AdvReac Severe Difficulty Verified 03/19/25 23:58 Breathing Vital Signs Vital Signs - 24 hr 03/22/25 16:00 03/22/25 20:00 03/22/25 20:00 Temperature Pulse Rate 90 95 98 Respiratory Rate 18 Blood Pressure Pulse Oximetry 93 Oxygen Delivery Room Air Fraction of Inspired Oxygen 21 03/22/25 20:54 03/22/25 22:00 03/23/25 00:00 Temperature 36.7 C Pulse Rate 95 95 83 Respiratory Rate 20 Blood Pressure 144/80 H Pulse Oximetry 100 Oxygen Delivery Fraction of Inspired Oxygen 03/23/25 04:00 03/23/25 05:27 03/23/25 08:00 Temperature 36.8 C Pulse Rate 74 85 85 Respiratory Rate 16 16 Blood Pressure 146/77 H Pulse Oximetry 98 98 Oxygen Delivery Room Air Fraction of Inspired Oxygen 21 Exam 2 Narrative: exam revealed her to be awake alert very cooperative and communicative in no obvious acute distress, head normocephalic with no cranial bruit, neck supple with no cervical bruit no thyromegaly no lymphadenopathy, heart regular with no murmur, lungs clear with no rhonchi or crepitation, abdomen nontender with normal bowel sounds, neurologically she was awake alert she was able to follow the verbal commands appropriately, his speech was not dysphasic not dysarthric not dysphonic, extraocular movements are full with no nystagmus facial sensation was intact face was symmetrical tongue was in the oral cavity with no fasciculation motor examination revealed her to have no drift against gravity normal tone in upper extremities with significant edema of the lower extremities and was difficult to move her upper lower extremities. The plantar responses were downgoing. Had no ataxia or dysmetria on [id number]. Results Labs 03/23/25 06:21 03/23/25 06:21 Labs: Short CBC 03/23/25 Range/Units 06:21 WBC 9.3 (4.5-10.0) K/mm3 Hgb 12.8 (12.0-15.0) g/dL Hct 41.3 (37.0-47.0) % Plt Count 517 H (150-375) k/mm3 BMP 03/23/25 06:21 Sodium 135 L Potassium 3.3 L Chloride 100 Carbon Dioxide 31 H BUN 8 Creatinine 0.63 L Glucose 103 Calcium 10.3 H
--- NOTE | 2025-03-23 14:54 | PM.DS ---
DS: Admitting Diagnosis Discharge Date 03/23/25 Admitting Diagnosis - BLE cellulitis - vertigo - diastolic CHF - atrial fibrillation with RVR - T2DM - hypertension - anemia DS: Discharge Diagnosis Discharge Diagnosis (1) Bilateral lower leg cellulitis: Code(s): L03.116 - Cellulitis of left lower limb; L03.115 - Cellulitis of right lower limb Status: Acute (2) Vertigo: Code(s): R42 - Dizziness and giddiness Status: Acute (3) Diastolic heart failure: Qualifiers: Heart failure chronicity: chronic Qualified Code(s): I50.32 - Chronic diastolic (congestive) heart failure Code(s): I50.30 - Unspecified diastolic (congestive) heart failure Status: Acute (4) Atrial fibrillation with rapid ventricular response: Code(s): I48.91 - Unspecified atrial fibrillation Status: Acute (5) Type 2 diabetes mellitus without complications: Qualifiers: Diabetes mellitus correction insulin use: without correction use Qualified Code(s): E11.9 - Type 2 diabetes mellitus without complications Code(s): E11.9 - Type 2 diabetes mellitus without complications Status: Acute (6) Primary hypertension: Code(s): I10 - Essential (primary) hypertension Status: Acute (7) Anemia: Code(s): D64.9 - Anemia, unspecified Status: Acute (8) Chronic bilateral low back pain without sciatica: Code(s): M54.5 - Low back pain; G89.29 - Other chronic pain Status: Acute (9) History of CVA (cerebrovascular accident): Code(s): Z86.73 - Personal history of transient ischemic attack (TIA), and cerebral infarction without residual deficits Status: Acute DS: Summary Hospital Course Reason for hospitalization: - BLE cellulitis Hospital Course: Patient is an 84-year-old female with past medical history of type 2 diabetes, hypothyroidism, hypertension, hyperlipidemia, frequent falls, atrial fibrillation, prurigo nodularis who presented to the emergency department with complaints of dizziness, bilateral lower extremity erythema and edema. Lab work in ED shows leukocytosis at 21.0, hemoglobin 11.1, sodium of 132, chloride 97, carbon dioxide 31, creatinine 0.5, calcium of 10.3, urine is negative for infection, chest x-ray shows Very small bilateral pleural effusions with dependent bibasilar atelectasis, mild pulmonary edema or less likely pneumonia. EKG shows atrial fibrillation rate of 82. Patient was initially started on Ancef however developed shortness of breath per nursing notes and was switched to vancomycin. She was admitted for further evaluation and management. Upon admission, patient's leukocytosis quickly improved with IV vancomycin. Tenderness and warmth in lower extremities is improved. There was no sign of fluid collection or purulence. Patient remained afebrile and hemodynamically stable. She was transitioned to PO Keflex which she has had good response to in the past with continued improvement. Patient was discharged on Keflex to complete a 7-day course. She will continue wound care as she was at home. Patient has a history of prurigo nodularis with extreme itching and chronic BLE redness. Patient has been following with her PCP and has attempted to establish with a dermatologis with apparent insurance difficulties. Encouraged close follow-up with PCP. While admitted, patient also complained of dizziness that has been ongoing for several months. She was started on meclizine with some improvement. 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 Patient has a prior history of atrial fibrillation and is maintained on Eliquis. She was not aware of these old strokes. Neurology consult and recommended to continue Eliquis. Also recommended to cut back on Flexeril and hydroxyzine dose unknown. PT/OT was consulted and recommended home care. Patient also has prior history of diastolic heart failure. Echo showed hyperdynamic systolic function with severe left atrial enlargement and normal functioning TAVR valve in setting of history of aortic stenosis. Admit BNP 5270 and chest x-ray showed small pleural effusions with possible pulmonary edema. Patient remained on room air with minimal symptoms of CHF. She was continued on her p.o. Lasix and encouraged to continue p.o. Lasix at home until she follows up with her primary care doctor. On admission, patient noted to be in AFib with RVR. Patient has prior history of atrial fibrillation. She admits to poor compliance with her home metoprolol. Once metoprolol was restarted, patient's heart rate remained well controlled. Medication compliance encouraged. Patient did have mild hypercalcemia. Per chart review, patient has had mild hypercalcemia in the past. Parathyroid hormone WNL. Patient admits to frequent Tums use as well as taking calcium supplements. Encouraged to stop calcium containing products and to repeat CMP in 5-7 days. Follow-up with PCP to monitor calcium levels. Patient also noted to have mild thrombocytosis. This is likely reactive in setting of infection. She was instructed to do obtain repeat CBC in 5-7 days. Patient was discharged home. Home care was not able to be established due to insurance issues. Patient has a caregiver for several hours 3 times weekly the assists with wound care as well. Status at Discharge Functional status at discharge: independent ambulation Time Spent with Patient Time attestation: Total time spent providing and/or coordinating discharge services: Time spent: Greater than 30 minutes Exam Narrative: General: NAD Eyes: EOMI ENT: neck supple Cardiovascular:irregularly irregular Respiratory: Clear to auscultation, respirations even and unlabored on RA Gastrointestinal: Soft, non tender Genitourinary: no suprapubic tenderness Musculoskeletal: No edema Skin: bilateral LE excoriations with dry skin sloughing. BLE erythema, L>R with tenderness and warmth, improved from admission Neuro: Alert. Psych: Mood appropriate DS: Data Data Completed and Pending Labs on day of discharge: Labs from last 24 hours 03/23/25 03/23/25 03/23/25 11:40 07:25 06:21 WBC 9.3 RBC 4.84 Hgb 12.8 Hct 41.3 MCV 85.3 MCH 26.4 MCHC 31.0 L RDW 17.1 H Plt Count 517 H MPV 9.3 Immature Gran % (Auto) 3.1 H Neut % (Auto) 53.4 Lymph % (Auto) 12.9 L [place] % (Auto) 17.0 H Eos % (Auto) 12.2 H Baso % (Auto) 1.4 H Lymph # (Auto) 1.20 [place] # (Auto) 1.6 H Eos # (Auto) 1.1 H Baso # (Auto) 0.1 Abs Immat Gran (auto) 0.29 H Absolute Neuts (auto) 5.0 Absolute Nucleated RBC 0.030 H Nucleated RBC % 0.3 H Sodium 135 L Potassium 3.3 L Chloride 100 Carbon Dioxide 31 H Anion Gap 4 BUN 8 Creatinine 0.63 L Estim Creat Clear Calc 44 Estimated GFR > 60 Glucose 103 POC Capillary Glucose 137 H 98 Calcium 10.3 H C-Reactive Protein 3.0 H PTH Intact 71.1 03/22/25 03/22/25 03/22/25 20:30 18:32 16:30 WBC RBC Hgb Hct MCV MCH MCHC RDW Plt Count MPV Immature Gran % (Auto) Neut % (Auto) Lymph % (Auto) [place] % (Auto) Eos % (Auto) Baso % (Auto) Lymph # (Auto) [place] # (Auto) Eos # (Auto) Baso # (Auto) Abs Immat Gran (auto) Absolute Neuts (auto) Absolute Nucleated RBC Nucleated RBC % Sodium Potassium Chloride Carbon Dioxide Anion Gap BUN Creatinine Estim Creat Clear Calc Estimated GFR Glucose POC Capillary Glucose 113 H 151 H 68 Calcium C-Reactive Protein PTH Intact Preliminary micro results at discharge 03/19/25 16:13 Blood Culture - Preliminary Blood 03/19/25 16:32 Blood Culture - Preliminary Blood Discharge Plan Discharge Attending physician on discharge: Masoud Quijano Consulting providers: Rosa Elena Moore; Wai Scott Discharging Clinician: Rosa Elena Moore Anticipated Discharge Date/Time: 03/23/25 14:24 Patient Disposition: Home Activity: may shower Diet: regular Discharge Instructions: Take all medications as prescribed. Finish antibiotics if prescribed, even if you are feeling better. Continue current wound care for your legs at home. Follow-up with your primary care provider in one week. Take lasix daily until this appointment Have your lab work (CBC and CMP) rechecked in 5 days to recheck calcium and potassium levels. Stop taking calcium supplements at home due to elevated calcium levels. Talk to your doctor about dermatology referral. While in the hospital, your CT scan showed old strokes which could be contributing to your dizziness. Neurology recommended that you cut back on your Flexeril (cyclobenzaprine) and hydroxyzine dosing which could be contributing to dizziness. Return to the emergency department if you develop chest pain, shortness of breath, persistent fever >100.4, confusion, loss of consciousness. Patient Instructions: Antibiotic Form Patient Language: Nigerien Stand Alone Forms: General Discharge Information Follow-up/Referrals: Irwin Vega MD [Primary Care Provider, Family Practice] - Call for Appointment Referral Note: follow-up in 5-7 days to check improvement for cellulitis, recheck potassium and calcium levels. Michael Choudhary MD [Physician, Neurology] - Call for Appointment Referral Note: as needed for continued dizziness Discharge Medications: New meclizine 12.5 mg Tablet 12.5 mg PO TID PRN (Reason: Dizziness) 10 Days Qty: 30 0RF cephalexin 500 mg Capsule 500 mg PO Q6HR 6 Days Qty: 24 0RF Continued famotidine [Pepcid] 40 mg tablet 40 mg PO DAILY Qty: 90 3RF silver sulfadiazine [Silvadene] 1 % cream 1 applic topical BID Qty: 400 11RF Rx Instructions: apply a 1.5 mm thickness apply to the areas of scratches and open wound twice daily until healed quetiapine [Seroquel] 25 mg tablet 25 mg PO QHS PRN (Reason: sleep) Qty: 30 2RF metoprolol tartrate 100 mg tablet 100 mg PO BID Qty: 180 3RF Eliquis 2.5 mg tablet 2.5 mg PO BID Patient Comments: prescribed by Cardiology fluticasone propionate [Flonase Allergy Relief] 50 mcg/actuation spray,suspension 1 spray intranasal BID Qty: 16 11RF Rx Instructions: administer into each nostril Lumigan 0.01 % drops 1 drop EACH EYE DAILY melatonin 10 mg tablet 10 mg PO DAILY PRN (Reason: Insomnia) biotin 10,000 mcg capsule 10,000 mcg PO DAILY ipratropium bromide 42 mcg (0.06 %) spray,non-aerosol 1 spray intranasal TID PRN (Reason: allergy symptoms) Qty: 15 5RF Rx Instructions: administer into each nostril duloxetine 60 mg capsule,delayed release(DR/EC) 60 mg PO BID Qty: 180 3RF amlodipine [Norvasc] 5 mg tablet 5 mg PO DAILY Qty: 90 3RF irbesartan 300 mg tablet 300 mg PO DAILY Qty: 90 3RF atorvastatin 40 mg tablet 40 mg PO DAILY Qty: 90 3RF celecoxib 200 mg capsule 200 mg PO DAILY PRN (Reason: pain) Qty: 90 3RF ropinirole 1 mg tablet 1 mg PO . q.h.s. Qty: 90 3RF methotrexate sodium 2.5 mg tablet 10 mg PO WEEKLY Qty: 16 3RF metformin 500 mg tablet extended release 24 hr 500 mg PO . with supper Qty: 90 3RF furosemide 20 mg tablet 20 mg PO . q.a.m. PRN (Reason: edema) Qty: 30 2RF Changed cyclobenzaprine 10 mg tablet 5 mg PO TID PRN (Reason: muscle spasm) Qty: 90 0RF hydroxyzine HCl 25 mg tablet 12.5 mg PO BID PRN (Reason: itching) Qty: 60 11RF Rx Instructions: take twice daily as needed for itching or anxiety Discontinued multivitamin Capsule 1 cap PO DAILY Other Ambulatory Orders: Complete Blood Count no Diff (Routine) Timeframe: 5 Days Location: Determined by Patient Ordered By: Rosa Elena Moore Comprehensive Metabolic Panel (Routine) Timeframe: 5 Days Location: Determined by Patient Ordered By: Rosa Elena oMore Date of admission: 03/20/25 12:20 Primary Care Provider: Irwin Vega Admitting Provider: Codi Tineo Attending physician on admission: Codi Tineo Condition: Stable
== END 2025-03-23 15:25 | disposition home or self-care (01) | DRG 603 ==
LOC: ANHED 14:34 → ANH3MEDSUR 16:19
PROVIDERS: Emergency Medicine; Nurse Practitioner Gerontology; Admitting Provider General Practice; Emergency Provider Emergency Medicine; PCP Family Medicine; Visit Provider Physician Assistant
DX: L03.115 Cellulitis of right lower limb (principal); I50.32 Chronic diastolic (congestive) heart failure; L03.116 Cellulitis of left lower limb; I48.91 Unspecified atrial fibrillation; R42 Dizziness and giddiness; I11.0 Hypertensive heart disease with heart failure; D64.9 Anemia, unspecified; G89.29 Other chronic pain; M54.50 Low back pain, unspecified; E83.52 Hypercalcemia; E05.90 Thyrotoxicosis, unspecified without thyrotoxic crisis or storm; E11.42 Type 2 diabetes mellitus with diabetic polyneuropathy; R29.6 Repeated falls; Z96.653 Presence of artificial knee joint, bilateral; Z86.73 Personal history of transient ischemic attack (TIA), and cerebral infarction without residual deficits; Z87.891 Personal history of nicotine dependence; Z91.148 Patient's other noncompliance with medication regimen for other reason
CPT/HCPCS: 36415; 70496; 70498; 71046; 80048; 80053; 81001; 82607; 82728; 82746; 82948; 83540; 83550; 83735; 83880; 83970; 84443; 85025; 86140; 87040; 93005; 93306; 94640; 96365; 96375; 97110; 97112; 97161; 97165; 97530; 99285; A9270; G0378; J0616; J0690; J1200; J1756; J3373; J3475; J7050; Q9967